=== PATIENT | male | born 1985 | race Caucasian/White ===

== ENCOUNTER 2017-11-17 21:32 | Inpatient (IN) | payer BC ==
[~2017-11-17] VITALS: Ht 175.3 cm; Wt 95.3 kg
[~2017-11-17 21:32] MED LIST: BUPROPION XL150 MG ORAL; QUETIAPINE FUM400 MG ORAL
[2017-11-17 21:35] VITALS: BP 96/45
[2017-11-17 21:48] VITALS: BP 96/39
--- NOTE | 2017-11-17 21:49 | Emergency Room Report ---
History of Present Illness General Chief Complaint: Altered Level of Consciousness Source: Family Member, Friend, EMS Present Illness HPI 32-year-old male brought in by EMS with suspected overdose EMS endorse GCS of 3 Per EMS, suspected serouqel overdose. Patient with a bunch of other bottles of medication, most of which were full. Response to Narcan 2 mg on scene. Patient had dilated pupils, tachycardia, and hypotension Looks like he had been vomiting Per family member, patient recently been drinking a lot of alcohol as well No known recent SI, or HI History of present illness otherwise limited, as patient minimally responsive Mother states last normal noon - 10 hours ago. She "thought" he had been drinking this morning and was "passed out during the day." Not sure if he "Fell and hit his head." Per roomate, recent admission at outside psych hospital to "get his head straight" but he is unsure on previous SI, psych history Allergies: Coded Allergies: UNABLE TO ASSESS (Unverified , 11/17/17) Patient History Past Medical History: unable to obtain Past Surgical History: unable to obtain Pertinent Family History: unable to obtain Social History: Reports: alcohol use Nursing Documentation-[facility] Past Medical History Deferred: Patient Unconscious Past Medical History: Deferred Review of Systems All Other Systems: limited - AMS Physical Exam Vital Signs Date Time Temp Pulse Resp B/P (MAP) Pulse Ox O2 Delivery O2 Flow Rate FiO2 11/17/17 21:22 96.3 141 7 86/39 96 Ambu-Bag Sp02 EP Interpretation: reviewed, normal General Appearance: other - GCS3, Stupor Head: normocephalic, atraumatic Eyes: bilateral eye PERRL, bilateral eye EOMI, bilateral eye other - Bilateral pupils dilated ENT: normal ENT inspection, no angioedema, uvula midline, other - Dried vomit in airway Neck: normal inspection, full range of motion, supple, thyroid normal Respiratory: lungs clear, normal breath sounds, no rhonchi, no wheezing Cardiovascular #1: no edema, no JVD, normal capillary refill, tachycardia Gastrointestinal: normal inspection, non tender, soft, no mass, non-distended, no hernia, no pulsatile mass Musculoskeletal: normal inspection, back normal, normal range of motion, no calf tenderness, pelvis stable, Jose's Sign negative Neurologic: other - minimally responsive Skin: no rash Lymphatic: normal inspection Procedures Critical Care Time Critical Care Time CC time 45 Critical care time endorsed for this patient for AMS, likely anticholingeric overdose Critical care time includes review of laboratory tests, imaging, review of EMR, review of paperwork from SNF (if available), discussion with patient and family (if available), review of code status/POLS (if available), discussion with poison control Critical care time also likely includes assessment of fluid status, stabilization of vital signs, selection and dosing of appropriate antibiotics, selection and dosing of Aspirin/Plavix/Heparin/Lovenox, discussion with PMD/ attending hospitalist/shearer helper. Critical care time does not include any procedures which are documented elsewhere in this EMR. Intubation Intubation : Consent: Emergent Intubation Method: orotracheal Tube Size (cm): 7.5 Medications: Etomidate, Rocuronium Breath Sounds after Intubation: equal Intubation Complications: no complications Post Intubation Xray: Yes Attempts: One Patient Tolerated: Well Complications: None Medical Decision Making Diagnostic Impression: Primary Impression: Altered level of consciousness Additional Impressions: Anticholinergic drug overdose Qualified Codes: T44.3X4A - Poisoning by other parasympatholytics [ anticholinergics and antimuscarinics] and spasmolytics, undetermined, initial encounter Rhabdomyolysis Qualified Codes: M62.82 - Rhabdomyolysis NOLVIA (acute kidney injury) Lactic acid acidosis ER Course altered mental status Combination of hypothermic (95F) tachycardia, hypotension, coma, dilated pupils consistent with anticholinergic possible Seroquel overdose Patient emergently intubated upon arrival Will monitor temperature and rewarm Will give bicarbonate as needed for QRS<100 IVF for hypotension labs consistent with rhabdomyolysis AND NOLVIA Elevated lactate of 10. 3L NS and LR given in ED Reflux lactate pending at time of endorsement CT head negative for ICH ICU admission Procedure Dr. Flor 1115pm EKG Diagnostic Results Rate: tachycardiac Rhythm: NSR ST Segments: no acute changes Rhythm Strip Diag. Results EP Interpretation: yes Rate: 128 Rhythm: NSR, no PVC's, no ectopy Chest X-Ray Diagnostic Results Chest X-Ray Diagnostic Results : Chest X-Ray Ordered: Yes # of Views/Limited/Complete: 1 View Indication: Other - AMS, tube placement EP Interpretation: Yes Interpretation: no consolidation, no effusion, no pneumothorax, no acute cardiopulmonary disease, other - ET in good position Impression: No acute disease Electronically Signed by: Dr Lex Tate MD Last Vital Signs Date Time Temp Pulse Resp B/P (MAP) Pulse Ox O2 Delivery O2 Flow Rate FiO2 11/17/17 21:22 96.3 141 7 86/39 96 Ambu-Bag Status: improved Disposition: ADMITTED INPATIENT Condition: Critical LEX TATE M.D. Nov 17, 2017 21:49
[2017-11-17 21:59] LABS: HEMATOCRIT 37.4 % (42.0-52.0); HEMOGLOBIN 12.6 G/DL (14.2-18.0); MEAN CORPUSCULAR VOLUME 100 FL (80-99); PLATELET COUNT 294 K/UL (150-450); RED BLOOD COUNT 3.74 M/UL (4.70-6.10); RED CELL DISTRIBUTION WIDTH 12.1 % (11.6-14.8); WHITE BLOOD COUNT 17.7 K/UL (4.8-10.8)
[2017-11-17 22:15] LABS: ANION GAP 21 mmol/L (5-15); BLOOD UREA NITROGEN 17 mg/dL (7-18); CALCIUM 7.9 MG/DL (8.5-10.1); CARBON DIOXIDE 19 MMOL/L (21-32); CHLORIDE 104 MMOL/L (98-107); CREATININE 1.8 MG/DL (0.55-1.30); POTASSIUM 4.1 MMOL/L (3.5-5.1); SODIUM 144 MMOL/L (136-145)
[2017-11-17] MEDS ORDERED: LR 1000ml 1,000 ML IV STA ×2 (22:25→22:40)
[2017-11-17 22:28] LABS: ALANINE AMINOTRANSFERASE 45 U/L (12-78); ALBUMIN 3.1 G/DL (3.4-5.0); ALKALINE PHOSPHATASE 46 U/L (46-116); ASPARTATE AMINO TRANSFERASE 95 U/L (15-37); BILIRUBIN,TOTAL 0.4 MG/DL (0.2-1.0); CKMB 47.3 NG/ML (0.0-3.6); CREATINE KINASE 3449 U/L (26-308)
[2017-11-17 23:06] VITALS: BP 109/54
[2017-11-17] MEDS ORDERED: LEXAPRO10 MG ORAL (23:32)
[2017-11-18] VITALS (24 sets, daily range): BP systolic 69–174; BP diastolic 27–94
[2017-11-18] MEDS: Sodium Chloride 500ML 500 ML IV SCH ×2 (01:30→05:36)
[2017-11-18] MEDS ORDERED: Phenytoin 1,000 MG in NS 275 ML IVPB ONE (01:45)
[2017-11-18] MEDS ORDERED: Sodium Bicarbonate 50ml Carp IV ONE (02:00)
[2017-11-18] MEDS ORDERED: LORazepam Inj 2mg/ml 1ml IV ONE ×3 (02:00→06:00)
[2017-11-18] MEDS ORDERED: Phenytoin 250mg/5ml vial ONE (02:17)
[2017-11-18] MEDS: Sodium Bicarbonate 100 ML in D5W 1000ml 1,000 ML IV SCH ×3 (02:47→13:00)
[2017-11-18 04:32] LABS: HEMATOCRIT 32.7 % (42.0-52.0); HEMOGLOBIN 11.1 G/DL (14.2-18.0); MEAN CORPUSCULAR VOLUME 100 FL (80-99); PLATELET COUNT 262 K/UL (150-450); RED BLOOD COUNT 3.28 M/UL (4.70-6.10); RED CELL DISTRIBUTION WIDTH 12.2 % (11.6-14.8); WHITE BLOOD COUNT 18.6 K/UL (4.8-10.8)
[2017-11-18 05:05] LABS: ALANINE AMINOTRANSFERASE 74 U/L (12-78); ALBUMIN 2.6 G/DL (3.4-5.0); ALKALINE PHOSPHATASE 35 U/L (46-116); ANION GAP 16 mmol/L (5-15); ASPARTATE AMINO TRANSFERASE 310 U/L (15-37); BILIRUBIN,TOTAL 0.4 MG/DL (0.2-1.0); BLOOD UREA NITROGEN 20 mg/dL (7-18); CALCIUM 7.4 MG/DL (8.5-10.1); CARBON DIOXIDE 24 MMOL/L (21-32); CHLORIDE 106 MMOL/L (98-107); CREATINE KINASE 13434 U/L (26-308); CREATININE 2.4 MG/DL (0.55-1.30); POTASSIUM 4.7 MMOL/L (3.5-5.1); SODIUM 146 MMOL/L (136-145)
[2017-11-18] MEDS ORDERED: levETIRAcetam 1,000mg/NS100ml 100 ML IVPB ONE (05:30)
[2017-11-18] MEDS: LORazepam Inj 2mg/ml 1ml IV PRN (05:34)
[2017-11-18] MEDS ORDERED: levETIRAcetam 500mg vial IV ONE ×2 (05:44)
[2017-11-18] MEDS: Pantoprazole Inj IVP SCH (08:59)
--- NOTE | 2017-11-18 10:01 | Diagnostic Imaging Report ---
Indication: Respiratory failure Technique: XRAY Chest 1v Comparison: None Findings: ET tube tip at the level of the clavicles, approximately 4 cm above the jordan. Cardiac pacer/defibrillator pads overlie the lower chest. Heart size within normal limits. There is mild pulmonary vascular congestion. No focal airspace consolidation, pleural effusion or pneumothorax. No acute osseous abnormality seen. Impression: Endotracheal tube tip at the level of the clavicles. 4 cm above the jordan. Slight advancement may provide more optimal tube positioning. This was discussed with the patient's treating ICU nurse via telephone conversation 9:50 AM 11/18/2017. Repeat chest radiograph for today pending. Mild pulmonary vascular congestion. No focal airspace consolidation.
--- NOTE | 2017-11-18 11:07 | Diagnostic Imaging Report ---
Indication: Altered mental status Technique: Continuous helical CT scanning of the head was performed without intravenous contrast material. Axial and coronal 5 mm sections were generated. Radiation dose was minimized using automated exposure control Dose: Total Dose Length Product - DLP 1404.[address] Dose Index - CTDIvol(s) 70.38 mGy. Comparison: None Findings: The ventricular system is normal in size and configuration. There is no shift of midline structures. No abnormal extra-axial fluid collections are noted. There is no evidence of intracerebral bleeding. No other abnormal high or low density areas are noted within the brain. There is no depressed skull fracture. No focal soft tissue swelling/scalp hematoma identified. There is mucosal thickening noted in some ethmoid air cells and within the nasal passages. Mastoid air cells are clear. Imaged portions of the orbits grossly unremarkable. Impression: No evidence of acute intracranial hemorrhage, mass effect or cortical edema. MRI may be obtained for more sensitive evaluation as clinically indicated. Mild paranasal sinus disease. This corresponds with the statrad preliminary report, with minimal discrepancy. The CT scanner at [facility] is accredited by the [employer] and the scans are performed using protocols designed to limit radiation exposure to as low as reasonably achievable to attain images of sufficient resolution adequate for diagnostic evaluation.
--- NOTE | 2017-11-18 11:27 | Neurology Progress Note ---
Objective Physical Exam Last Vital Signs Date Time Temp Pulse Resp B/P (MAP) Pulse Ox O2 Delivery O2 Flow Rate FiO2 11/18/17 11:01 112 24 80 11/18/17 11:00 97.9 134/82 98 Mechanical Ventilator Laboratory Tests Test 11/17/17 21:40 11/17/17 22:41 11/17/17 23:10 11/18/17 01:25 White Blood Count 17.7 K/UL (4.8-10.8) H Red Blood Count 3.74 M/UL (4.70-6.10) L Hemoglobin 12.6 G/DL (14.2-18.0) L Hematocrit 37.4 % (42.0-52.0) L Mean Corpuscular Volume 100 FL (80-99) H Mean Corpuscular Hemoglobin 33.7 PG (27.0-31.0) H Mean Corpuscular Hemoglobin Concent 33.7 G/DL (32.0-36.0) Red Cell Distribution Width 12.1 % (11.6-14.8) Platelet Count 294 K/UL (150-450) Mean Platelet Volume 5.4 FL (6.5-10.1) L Neutrophils (%) (Auto) % (45.0-75.0) Lymphocytes (%) (Auto) % (20.0-45.0) Monocytes (%) (Auto) % (1.0-10.0) Eosinophils (%) (Auto) % (0.0-3.0) Basophils (%) (Auto) % (0.0-2.0) Differential Total Cells Counted 100 Neutrophils % (Manual) 88 % (45-75) H Lymphocytes % (Manual) 3 % (20-45) L Monocytes % (Manual) 5 % (1-10) Eosinophils % (Manual) 0 % (0-3) Basophils % (Manual) 0 % (0-2) Band Neutrophils 4 % (0-8) Platelet Estimate Adequate Platelet Morphology Normal Red Blood Cell Morphology Normal Sodium Level 144 MMOL/L (136-145) Potassium Level 4.1 MMOL/L (3.5-5.1) Chloride Level 104 MMOL/L (98-107) Carbon Dioxide Level 19 MMOL/L (21-32) L Anion Gap 21 mmol/L (5-15) H Blood Urea Nitrogen 17 mg/dL (7-18) Creatinine 1.8 MG/DL (0.55-1.30) H Estimat Glomerular Filtration Rate 43.9 mL/min (>60) Glucose Level 130 MG/DL (74-106) H Lactic Acid Level 11.00 mmol/L (0.66-2.22) H 6.50 mmol/L (0.66-2.22) H Calcium Level 7.9 MG/DL (8.5-10.1) L Total Bilirubin 0.4 MG/DL (0.2-1.0) Aspartate Amino Transf (AST/SGOT) 95 U/L (15-37) H Alanine Aminotransferase (ALT/SGPT) 45 U/L (12-78) Alkaline Phosphatase 46 U/L (46-116) Total Creatine Kinase 3449 U/L (26-308) H Creatine Kinase MB 47.3 NG/ML (0.0-3.6) H Creatine Kinase MB Relative Index 1.3 Troponin I 0.008 ng/mL (0.000-0.056) Total Protein 6.1 G/DL (6.4-8.2) L Albumin 3.1 G/DL (3.4-5.0) L Globulin 3.0 g/dL Albumin/Globulin Ratio 1.0 (1.0-2.7) Urine Opiates Screen Negative (NEGATIVE) Urine Barbiturates Screen Negative (NEGATIVE) Phencyclidine (PCP) Screen Negative (NEGATIVE) Urine Amphetamines Screen Negative (NEGATIVE) Urine Benzodiazepines Screen Positive (NEGATIVE) H Urine Cocaine Screen Negative (NEGATIVE) Urine Marijuana (THC) Screen Negative (NEGATIVE) Arterial Blood pH 7.231 (7.350-7.450) 6.952 (7.350-7.450) Arterial Blood Partial Pressure CO2 53.4 mmHg (35.0-45.0) H 96.6 mmHg (35.0-45.0) *H Arterial Blood Partial Pressure O2 51.4 mmHg (75.0-100.0) L 428.7 mmHg (75.0-100.0) H Arterial Blood HCO3 21.9 mmol/L (22.0-26.0) L 20.9 mmol/L (22.0-26.0) L Arterial Blood Oxygen Saturation 80.1 % (92.0-98.0) L 99.3 % (92.0-98.0) H Arterial Blood Base Excess -6 -13.0 Duane Test Positive Positive Test 11/18/17 03:50 11/18/17 07:50 11/18/17 08:10 White Blood Count 18.6 K/UL (4.8-10.8) H Red Blood Count 3.28 M/UL (4.70-6.10) L Hemoglobin 11.1 G/DL (14.2-18.0) L Hematocrit 32.7 % (42.0-52.0) L Mean Corpuscular Volume 100 FL (80-99) H Mean Corpuscular Hemoglobin 33.8 PG (27.0-31.0) H Mean Corpuscular Hemoglobin Concent 33.9 G/DL (32.0-36.0) Red Cell Distribution Width 12.2 % (11.6-14.8) Platelet Count 262 K/UL (150-450) Mean Platelet Volume 6.0 FL (6.5-10.1) L Neutrophils (%) (Auto) % (45.0-75.0) Lymphocytes (%) (Auto) % (20.0-45.0) Monocytes (%) (Auto) % (1.0-10.0) Eosinophils (%) (Auto) % (0.0-3.0) Basophils (%) (Auto) % (0.0-2.0) Differential Total Cells Counted 100 Neutrophils % (Manual) 82 % (45-75) H Lymphocytes % (Manual) 5 % (20-45) L Monocytes % (Manual) 9 % (1-10) Eosinophils % (Manual) 0 % (0-3) Basophils % (Manual) 0 % (0-2) Band Neutrophils 4 % (0-8) Platelet Estimate Adequate Platelet Morphology Normal Anisocytosis Macrocytosis 1+ Sodium Level 146 MMOL/L (136-145) H Potassium Level 4.7 MMOL/L (3.5-5.1) Chloride Level 106 MMOL/L (98-107) Carbon Dioxide Level 24 MMOL/L (21-32) Anion Gap 16 mmol/L (5-15) H Blood Urea Nitrogen 20 mg/dL (7-18) H Creatinine 2.4 MG/DL (0.55-1.30) H Estimat Glomerular Filtration Rate 31.5 mL/min (>60) Glucose Level 191 MG/DL (74-106) H Lactic Acid Level 8.10 mmol/L (0.66-2.22) H 7.60 mmol/L (0.66-2.22) H Calcium Level 7.4 MG/DL (8.5-10.1) L Total Bilirubin 0.4 MG/DL (0.2-1.0) Aspartate Amino Transf (AST/SGOT) 310 U/L (15-37) H Alanine Aminotransferase (ALT/SGPT) 74 U/L (12-78) Alkaline Phosphatase 35 U/L (46-116) L Total Creatine Kinase 61579 U/L (26-308) H Total Protein 5.2 G/DL (6.4-8.2) L Albumin 2.6 G/DL (3.4-5.0) L Globulin 2.6 g/dL Albumin/Globulin Ratio 1.0 (1.0-2.7) Arterial Blood pH 7.402 (7.350-7.450) Arterial Blood Partial Pressure CO2 37.1 mmHg (35.0-45.0) Arterial Blood Partial Pressure O2 60.1 mmHg (75.0-100.0) L Arterial Blood HCO3 22.6 mmol/L (22.0-26.0) Arterial Blood Oxygen Saturation 88.2 % (92.0-98.0) L Arterial Blood Base Excess -1.8 Duane Test Positive Impression/Recommendations Problems: (1) Status epilepticus (2) coma (3) NOLVIA (acute kidney injury) (4) Lactic acid acidosis (5) Rhabdomyolysis Status: unchanged, deteriorating Recommendations #[id number] XAVI SANEZ Nov 18, 2017 11:27
--- NOTE | 2017-11-18 12:11 | Diagnostic Imaging Report ---
Indication: Respiratory failure, ET tube placement Technique: XRAY Chest 1v Comparison: 11/17/2017, 29:43 Findings: ET tube, tip now below the level of the clavicles, approximately 5.6 cm above the jordan. Heart size and mediastinal contours are stable. There is increased slight interstitial opacification/fluid overload. No pleural effusion or pneumothorax. No acute osseous abnormality. Impression: ET tube tip below the level of the clavicles, approximately 5.6 cm below the jordan. Slight interval increased haziness of the pulmonary vascularity possibly reflective of development of mild interstitial edema/fluid overload. Follow-up exam recommended.
[2017-11-18 12:26] LABS: AMMONIA 24 umol/L (11-32)
[2017-11-18] MEDS ORDERED: Thiamine HCl 100 MG, Folic Acid 1 MG, Magnesium Sulfate 2,000 MG, Multivitamin - 12 Inj... IV SCH ×5 (13:00)
[2017-11-18] MEDS: Thiamine 100mg in D5W 55ml IVPB SCH (13:59)
[2017-11-18] MEDS: Folic Acid 1 MG, Magnesium Sulfate 2,000 MG, Multivitamin - 12 Injection 10 ML in NS w/... IV SCH (13:59)
[2017-11-18] MEDS: levETIRAcetam 1,000mg/NS100ml 100 ML IVPB SCH ×2 (14:36→22:01)
[2017-11-18] MEDS: D5 1/2NS 1,000 ML IV SCH ×2 (16:50→21:04)
[2017-11-18] MEDS ORDERED: Etomidate 40mg/20ml Inj IV ONE (17:01)
[2017-11-18] MEDS ORDERED: Zemuron 50mg/5ml Inj IV ONE (17:01)
--- NOTE | 2017-11-18 21:32 | Consultation ---
DATE OF CONSULTATION: 11/18/2017 NEUROLOGICAL CONSULTATION REFERRING PHYSICIAN: Leonardo Flor M.D. HISTORY OF PRESENT ILLNESS: This is a 32-year-old man brought to this hospital with an episode of unresponsiveness followed by recurrent seizures. According to paramedics, he was found to be in apartment of a bedroom supine on the ground, unresponsive. Apparently, he was found previously by his mother also unresponsive with her last call to him about 10 hours prior. There were two empty bottles of Seroquel next to the patient. There were numerous other medications in the bedroom, but they were not empty. Gustine coma scale initially with dilated pupils not responsive to pain, slow respiration, hypotensive and tachycardic. IV fluids were established. Rescue breathing was applied. The patient was placed in a shock position and normal saline challenge was given, 2 mg of Narcan, also given with no change. There was no outside trauma, mother also suggested he might have had overdose with alcohol as well. With this, he was brought to the emergency room with dilated pupils, tachycardia, hypotension and vomiting at times. Family added that he has been abusing alcohol lately. He had a recent hospitalization to the psychiatric unit. His admission blood pressure was 86/29, heart rate of 141, respirations 7, on Ambu bag pulse oximetry was 96%. The patient was intubated. Initial studies included a chest x-ray, mild pulmonary vascular congestion noted, but also ET tube and cardiac pacer defibrillator pads described. CAT scan of the brain reported as negative. His EKG normal sinus rhythm, sinus tachycardia at 128. His laboratory studies included CBC with WBCs of 17.7, hemoglobin 12.6, hematocrit 37.4 elevated MCV and MCH. Chemistry panel, anion gap of 21, creatinine 1.8 and glucose 130 and CPK 3449, CK-MB 47.3 and 1.3. Albumin 3.1. Lactic acid elevation at 11.0. Anion gap elevated to 16. BUN of 20 and creatinine 2.4. Following admission, the patient was transported to ICU for closer observation. He developed a generalized clonic-tonic seizure, which were recurrent for the following 4-5 hours. During this, the patient was given at least 1.5 mg of Ativan IV, loaded with 1 g of Dilantin with no improvement, then loaded with Keppra 1 g IV, no further seizures noted. Stat Neurology consult requested. PAST MEDICAL HISTORY: Unavailable except the presence of antidepressants, alcohol abuse and recent psychiatric hospitalization. MEDICATIONS: Treatment prior to admission, quetiapine 400 mg daily, Lexapro 10 mg daily and bupropion XL 300 mg daily. ALLERGIES: Sulfa drugs, sulfonamide antibiotics. SOCIAL HISTORY: Lives in an apartment with a roommate. Obviously, reportedly has a history of alcohol abuse. Acute toxicology admission positive only for benzodiazepine. REVIEW OF SYMPTOMS: Not obtained, the patient is comatose. PHYSICAL EXAMINATION: GENERAL: A well-developed and well-nourished man, now intubated, he is not triggering respirator at t0he rate of 24. His blood pressure is 109/51, heart rate of 109, temperature 102.2, and pulse oximetry 98% on mechanical ventilator MUSCULOSKELETAL: Unremarkable. No deformities. No rash noted. Peripheral pulses 1+ symmetric. MENTAL STATUS: No response to verbal stimulation or painful stimulation. Glabella/palmomental reflexes. CRANIAL NERVE II: Pupils are 4 millimeters, very sluggishly responding to the light. Fundi poorly visualized. CRANIAL NERVE V: Slightly positive corneal responses. No blinking. Extraocular movement none on doll maneuver. CRANIAL NERVE VII: No facial asymmetry and no facial movement. CRANIAL NERVE VIII: Not tested. CRANIAL NERVE IX THROUGH XII: Absent gag response. MOTOR EXAMINATION: Flaccid upper and lower extremities. No evidence of involuntary movement noted. No muscle wasting. Deep tendon reflexes absent biceps, triceps, brachioradialis, knee and ankle jerks. Plantar responses mute. IMPRESSION: 1. Severe encephalopathy, multifactorial, Seroquel toxicity, benzodiazepine sedation, postictal state, rule out post anoxic brain. 2. Status epilepticus, now controlled. 3. History of chronic psychiatric disorder. 4. History of alcohol abuse. DISCUSSION: The patient who reportedly had took a bottle of Seroquel for overdose and had previous alcohol abuse, was found to be unresponsive over the last communication 10 hours prior. There was sense of vomiting, respiratory failure, and hypotension. Subsequently, developed what seems status epilepticus, several seizures, which were not controlled with Ativan and Dilantin, but stopped after Keppra IV given. Currently significant metabolic derangement with acute renal failure and rhabdomyolysis. At this time, we will obtain additional toxicology screen for presence of alcohol. We will check liver function. Repeat CBC and CMP. Start on banana bag (thiamine, magnesium oxide, folic acid supplements). Get a stat EEG to rule out ongoing seizure activity. Continue with IV Keppra 3000 mg, total for today. For recurrent seizures, may need for sedation with propofol. Unfortunately, no EEG video monitoring available, but may repeat EEG as needed. Discussed the patient's with medical staff. I will follow with you. Thank you for allowing me to see this interesting patient in neurological consultation. Vance Lan M.D. DR: DAISY JOB#: [id number] CC:
[2017-11-19] VITALS (23 sets, daily range): BP systolic 124–176; BP diastolic 78–92
[2017-11-19] MEDS: D5 1/2NS 1,000 ML IV SCH ×3 (01:02→09:01)
[2017-11-19] MEDS ORDERED: cefTRIAXone 1 GM in D5W 55 ML IVPB SCH (04:00)
[2017-11-19 04:24] LABS: HEMATOCRIT 34.3 % (42.0-52.0); HEMOGLOBIN 12.1 G/DL (14.2-18.0); MEAN CORPUSCULAR VOLUME 96 FL (80-99); PLATELET COUNT 186 K/UL (150-450); RED BLOOD COUNT 3.58 M/UL (4.70-6.10); WHITE BLOOD COUNT 19.8 K/UL (4.8-10.8)
[2017-11-19 04:51] LABS: ALANINE AMINOTRANSFERASE 144 U/L (12-78); ALBUMIN 2.3 G/DL (3.4-5.0); ALBUMIN/GLOBULIN RATIO 0.8 (1.0-2.7); ALKALINE PHOSPHATASE 50 U/L (46-116); ANION GAP 9 mmol/L (5-15); ASPARTATE AMINO TRANSFERASE 653 U/L (15-37); BILIRUBIN,TOTAL 0.7 MG/DL (0.2-1.0); BLOOD UREA NITROGEN 30 mg/dL (7-18); CALCIUM 6.8 MG/DL (8.5-10.1); CARBON DIOXIDE 29 MMOL/L (21-32); CHLORIDE 103 MMOL/L (98-107); CREATINE KINASE 20937 U/L (26-308); POTASSIUM 3.6 MMOL/L (3.5-5.1); SODIUM 141 MMOL/L (136-145)
[2017-11-19] MEDS: levETIRAcetam 1,000mg/NS100ml 100 ML IVPB SCH ×3 (06:04→22:03)
[2017-11-19] MEDS: Pantoprazole Inj IVP SCH (09:01)
[2017-11-19] MEDS ORDERED: D5 1/2NS 1,000 ML IV SCH (11:30)
--- NOTE | 2017-11-19 11:39 | Diagnostic Imaging Report ---
Indication: Dyspnea Technique: One view of the chest Comparison: 11/18/2017 Findings: Interstitial prominence and perihilar disease on the left persists, unchanged. Suspect increasing consolidation at the left lung base. New infiltrates are seen at the right lung base. Stable satisfactory position of endotracheal tube Impression: Increasing bilateral infiltrates versus edema, over one day, as described
--- NOTE | 2017-11-19 12:15 | History and Physical Report ---
DATE OF ADMISSION: 11/17/2017 REASON FOR ADMISSION: Overdose and respiratory failure. HISTORY OF PRESENT ILLNESS: This is a 32-year-old male with history of bipolar disorder, who was recently hospitalized in a psychiatric facility because of suicidal ideation, was found down by his mother and roommate. He apparently was found with two empty bottles of Seroquel next to him. Initially, the patient was unresponsive with dilated pupils, slow respirations and hypotension with tachycardia. IV fluids were given and he was transferred to the emergency room. The patient was intubated and placed on mechanical ventilation. PAST MEDICAL HISTORY: Otherwise unremarkable. MEDICATIONS: Medications prior to admission are not known, but do include Lexapro, bupropion and Seroquel. ALLERGIES: Sulfa. SOCIAL HISTORY: Notable for alcohol abuse. FAMILY HISTORY: Noncontributory. REVIEW OF SYSTEMS: According to his mother, the patient visited her at their home in [place] approximately three months ago. At that time, there was a family dispute and the patient was disowned by his father because of persistent alcohol abuse and financial instability. The patient returned to his home in [place] and apparently has been continuing to drink heavily. He has been increasingly depressed. He was recently hospitalized for suicidal ideation. The patient's mother came to [facility] about 10 days ago to help him. She notes that she has not been very successful. PHYSICAL EXAMINATION: GENERAL: Orally intubated. Mechanically ventilated. Unresponsive at this time. VITAL SIGNS: Blood pressure is 109/54, pulse rate 130, respiratory rate 13, and temperature 95.6 degrees. HEENT: Pupils are sluggish and dilated. Orally intubated. NECK: Supple. LUNGS: Clear. CARDIAC: Regular rhythm and rate. Normal S1 and S2. ABDOMEN: Soft. EXTREMITIES: No edema. NEUROLOGICAL: The patient withdraws to pain. LABORATORY DATA: White count is 17.7 and hemoglobin 12.6. Sodium is 144, potassium 4.1, bicarbonate 19, BUN 17, and creatinine 1.8. Lactic acid is 11. 3449. Albumin is 3.1. Troponin is 0.008. Tox screen is notable for benzodiazepine. IMPRESSION: 1. Drug overdose. 2. Probable suicide attempt. 3. Respiratory failure. 4. Coma. 5. Lactic acidosis. 6. Alcoholism. 7. Acute renal failure. 8. Rhabdomyolysis. 9. Mild protein-calorie malnutrition. 10. Leukocytosis. PLAN: 1. Ventilator support. 2. Hydration with IV bicarb. 3. Withdrawal precautions. 4. DVT prophylaxis. Leonardo Flor M.D. DR: Dyllan JOB#: [id number] CC:
[2017-11-19] MEDS: Piperacillin/Tazobactam 3.375 GM in NS 110 ML IVPB SCH (14:23)
[2017-11-19] MEDS: Thiamine 100mg in D5W 55ml IVPB SCH (14:23)
[2017-11-19] MEDS: Folic Acid 1 MG, Magnesium Sulfate 2,000 MG, Multivitamin - 12 Injection 10 ML in NS w/... IV SCH (14:23)
--- NOTE | 2017-11-19 15:26 | Neurology Progress Note ---
Interim History Interim History ROS Limited/Unobtainable: Yes Complaints: coma Events: coma no parox events Objective Physical Exam Last Vital Signs Date Time Temp Pulse Resp B/P (MAP) Pulse Ox O2 Delivery O2 Flow Rate FiO2 11/19/17 15:00 121 22 130/88 94 Mechanical Ventilator 60 11/19/17 12:00 98.8 Laboratory Tests Test 11/18/17 15:51 11/18/17 16:24 11/18/17 20:16 11/18/17 21:00 Arterial Blood pH 7.570 (7.350-7.450) 7.458 (7.350-7.450) Arterial Blood Partial Pressure CO2 26.0 mmHg (35.0-45.0) L 37.5 mmHg (35.0-45.0) Arterial Blood Partial Pressure O2 328.4 mmHg (75.0-100.0) H 92.5 mmHg (75.0-100.0) Arterial Blood HCO3 23.3 mmol/L (22.0-26.0) 26.0 mmol/L (22.0-26.0) Arterial Blood Oxygen Saturation 99.1 % (92.0-98.0) H 95.2 % (92.0-98.0) Arterial Blood Base Excess 2.4 2.2 [place]ane Test Positive Positive Lactic Acid Level 3.60 mmol/L (0.66-2.22) H 2.70 mmol/L (0.66-2.22) H Test 11/19/17 03:55 11/19/17 13:00 White Blood Count 19.8 K/UL (4.8-10.8) H Red Blood Count 3.58 M/UL (4.70-6.10) L Hemoglobin 12.1 G/DL (14.2-18.0) L Hematocrit 34.3 % (42.0-52.0) L Mean Corpuscular Volume 96 FL (80-99) Mean Corpuscular Hemoglobin 33.7 PG (27.0-31.0) H Mean Corpuscular Hemoglobin Concent 35.2 G/DL (32.0-36.0) Red Cell Distribution Width 12.0 % (11.6-14.8) Platelet Count 186 K/UL (150-450) Mean Platelet Volume 5.9 FL (6.5-10.1) L Neutrophils (%) (Auto) % (45.0-75.0) Lymphocytes (%) (Auto) % (20.0-45.0) Monocytes (%) (Auto) % (1.0-10.0) Eosinophils (%) (Auto) % (0.0-3.0) Basophils (%) (Auto) % (0.0-2.0) Differential Total Cells Counted 100 Neutrophils % (Manual) 84 % (45-75) H Lymphocytes % (Manual) 2 % (20-45) L Monocytes % (Manual) 3 % (1-10) Eosinophils % (Manual) 0 % (0-3) Basophils % (Manual) 0 % (0-2) Myelocytes % 1 % (0-0) H Band Neutrophils 10 % (0-8) H Platelet Estimate Adequate Platelet Morphology Normal Red Blood Cell Morphology Normal Sodium Level 141 MMOL/L (136-145) Potassium Level 3.6 MMOL/L (3.5-5.1) Chloride Level 103 MMOL/L (98-107) Carbon Dioxide Level 29 MMOL/L (21-32) Anion Gap 9 mmol/L (5-15) Blood Urea Nitrogen 30 mg/dL (7-18) H Creatinine 3.0 MG/DL (0.55-1.30) H Estimat Glomerular Filtration Rate 24.4 mL/min (>60) Glucose Level 176 MG/DL (74-106) H Lactic Acid Level 2.20 mmol/L (0.66-2.22) 1.90 mmol/L (0.66-2.22) Calcium Level 6.8 MG/DL (8.5-10.1) L Total Bilirubin 0.7 MG/DL (0.2-1.0) Aspartate Amino Transf (AST/SGOT) 653 U/L (15-37) H Alanine Aminotransferase (ALT/SGPT) 144 U/L (12-78) H Alkaline Phosphatase 50 U/L (46-116) Total Creatine Kinase 81347 U/L (26-308) H Total Protein 5.3 G/DL (6.4-8.2) L Albumin 2.3 G/DL (3.4-5.0) L Globulin 3.0 g/dL Albumin/Globulin Ratio 0.8 (1.0-2.7) L Vitamin B12 Level 707 PG/ML (193-986) Folate 18.9 NG/ML (8.6-58.9) Thyroid Stimulating Hormone (TSH) 5.178 uiU/mL (0.358-3.740) General: well developed, no acute distress, other - intubated ,Swelling L head/ arm Head: normocophalic, other - severe swelling L side Neck: no rigidity Neurologic Exam Mental Status: other - no responce to voice , decerebrate on pain stimuly Speech: other Language: other Cranial Nerve II: other Cranial Nerves III, IV, : other - p 2mm fixed ok horisontal movement Cranial Nerve V: other - no corneal Cranial Nerve VII: other Cranial Nerve VIII: other Cranial Nerve IX: other - no gag Cranial Nerve XI: other Cranial Nerve XII: other Motor System: other - flaccid Sensory: other Coordination: other Deep Tendon Reflexes: 0 bicep (L), 0 bicep (R), 0 tricep (L), 0 tricep (R), 0 brachioradialis (L), 0 brachioradialis (R), 0 knee (L), 0 knee (R), 0 ankle (L) , 0 ankle (R) Reflexes: extensor plantar (L), extensor plantar (R) Impression/Recommendations Problems: (1) Status epilepticus (2) coma (3) NOLVIA (acute kidney injury) (4) Lactic acid acidosis (5) Rhabdomyolysis Status: unchanged, deteriorating Recommendations #[id number] d/w family d/w staff CT brain EEG cont support care prognosis poor XAVI SAENZ Nov 19, 2017 15:26
[2017-11-19] MEDS: Sodium Bicarbonate 100 ML in D5W 1000ml 1,000 ML IV SCH ×2 (16:13→20:27)
--- NOTE | 2017-11-19 17:00 | Progress Note ---
DATE: 11/18/2017 INTERNAL MEDICINE CRITICAL CARE NOTE CRITICAL CARE TIME: Two hours. SUBJECTIVE: The patient was admitted to the intensive care unit, orally intubated and mechanically ventilated following a drug overdose. The patient developed seizures early this morning, refractory to multiple interventions. The patient was given IV lorazepam times several doses. In addition, he was loaded with 1 g of Dilantin intravenously. The patient continued to have status epilepticus. He was subsequently given intravenous Keppra. Seizure control was achieved at that time. The patient continues to have elevated lactate levels. His IV fluids were adjusted accordingly. The patient remained on ventilator support. He was severely acidotic with pH down to 6.9 at one point. Adjustments in the ventilator settings as well as IV fluids resulted in stabilization of his metabolic parameters. The patient's mother was at bedside. She was counseled extensively regarding the patient's critical condition and guarded prognosis. His mortality was put at 50%. Additional historical data was obtained from her. The patient's vitals were reviewed. His case was discussed with the nursing staff. Examination revealed him to be orally intubated, mechanically ventilated. Bilateral breath sounds. Regular rhythm. Rapid rate. Normal S1 and S2. Abdomen soft. No edema. Perfusion adequate. He is unresponsive and comatose. Pupils are sluggish and dilated. Neurologic evaluation was obtained and the case discussed with Dr. Lan. The patient was started on thiamine replacement and subsequently because of continued elevation in his white blood count and probable aspiration, empiric IV antibiotics were initiated as well. IMPRESSION: 1. Remains critical and guarded. 2. Status epilepticus. 3. Lactic acidosis. 4. Seroquel overdose. 5. Benzodiazepine overdoses. 6. Alcoholism. 7. Aspiration with possible pneumonia. 8. Respiratory failure. 9. Severe metabolic acidosis. Leonardo Flor M.D. DR: Dyllan JOB#: [id number] CC:
[2017-11-19] MEDS ORDERED: Potassium Chloride 40 MEQ in Sodium Chloride 500ML 550 ML IVPB ONE (19:45)
[2017-11-19 21:09] LABS: ANION GAP 12 mmol/L (5-15); BLOOD UREA NITROGEN 29 mg/dL (7-18); CALCIUM 6.6 MG/DL (8.5-10.1); CARBON DIOXIDE 26 MMOL/L (21-32); CHLORIDE 103 MMOL/L (98-107); CREATININE 2.7 MG/DL (0.55-1.30); POTASSIUM 4.2 MMOL/L (3.5-5.1); SODIUM 141 MMOL/L (136-145)
[2017-11-20] VITALS (24 sets, daily range): BP systolic 136–157; BP diastolic 85–100
[2017-11-20] MEDS: Sodium Bicarbonate 100 ML in D5W 1000ml 1,000 ML IV SCH ×3 (00:58→09:00)
--- NOTE | 2017-11-20 01:00 | Consultation ---
DATE OF CONSULTATION: 11/19/2017 NEPHROLOGY CONSULTATION CONSULTING PHYSICIAN: Arthur Cross M.D. REFERRING PHYSICIAN: Leonardo Flor M.D. and Milan Rivera M.D. CHIEF COMPLAINT AND REASON FOR CONSULTATION: Elevated BUN and creatinine. HISTORY OF PRESENT ILLNESS: The patient is a 32-year-old man with a history of psychiatric hospitalization and recent psychiatric hospitalization. He presented with unresponsiveness and apparently had two empty bottles of Seroquel near him. He has severe rhabdomyolysis and elevated BUN and creatinine. ALLERGIES: Sulfa. HABITS: He is a heavy alcohol user. REVIEW OF SYSTEMS: The patient is unable. PHYSICAL EXAMINATION: GENERAL: The patient is seen in the ICU. He is intubated. VITAL SIGNS: The pulse 123, respirations 22, blood pressure 131/86, and pulse oximetry 94%. HEAD, EYES, EARS, NOSE, AND THROAT: He is orally intubated. There is moderate to severe periorbital edema. NECK: No adenopathy. LUNGS: Clear. HEART: Regular rhythm and tachycardic. ABDOMEN: Soft without organomegaly. EXTREMITIES: No edema. LABORATORY AND DIAGNOSTIC DATA: Pertinent labs today, white count 19.8 and hemoglobin is 12.1. Sodium 141, potassium 3.6, chloride 103, CO2 29, BUN 30 and creatinine 3. CK 20,937. Albumin is 2.3. Drug screen is positive for benzodiazepines. IMPRESSION: 1. Acute kidney injury, likely due to rhabdomyolysis. 2. Respiratory failure. 3. Drug overdose. 4. History of bipolar, possible suicide attempt. 5. Bilateral infiltrates on chest x-ray. PLAN: The patient should be given large volumes of IV fluid containing bicarbonate to mitigate the toxicity and rhabdomyolysis. We will monitor closely. His condition is critical and guarded. So far, he is nonoliguric. Arthur Cross M.D. DR: SULEMAN JOB#: [id number] CC:
[2017-11-20] MEDS ORDERED: Potassium Chloride 40 MEQ in Sodium Chloride 500ML 550 ML IVPB ONE (02:00)
[2017-11-20] MEDS: Piperacillin/Tazobactam 3.375 GM in NS 110 ML IVPB SCH ×2 (03:27→15:50)
[2017-11-20 04:49] LABS: HEMATOCRIT 34.5 % (42.0-52.0); HEMOGLOBIN 12.2 G/DL (14.2-18.0); MEAN CORPUSCULAR VOLUME 97 FL (80-99); PLATELET COUNT 146 K/UL (150-450); RED BLOOD COUNT 3.57 M/UL (4.70-6.10); RED CELL DISTRIBUTION WIDTH 12.1 % (11.6-14.8); WHITE BLOOD COUNT 16.1 K/UL (4.8-10.8)
[2017-11-20] MEDS: levETIRAcetam 1,000mg/NS100ml 100 ML IVPB SCH ×3 (05:02→22:03)
[2017-11-20 05:32] LABS: ALANINE AMINOTRANSFERASE 139 U/L (12-78); ALBUMIN 1.8 G/DL (3.4-5.0); ALBUMIN/GLOBULIN RATIO 0.5 (1.0-2.7); ALKALINE PHOSPHATASE 75 U/L (46-116); ANION GAP 9 mmol/L (5-15); ASPARTATE AMINO TRANSFERASE 378 U/L (15-37); BILIRUBIN,TOTAL 0.4 MG/DL (0.2-1.0); BLOOD UREA NITROGEN 28 mg/dL (7-18); CALCIUM 6.9 MG/DL (8.5-10.1); CARBON DIOXIDE 25 MMOL/L (21-32); CHLORIDE 105 MMOL/L (98-107); CREATINE KINASE 12973 U/L (26-308); CREATININE 2.5 MG/DL (0.55-1.30); POTASSIUM 4.5 MMOL/L (3.5-5.1); SODIUM 139 MMOL/L (136-145)
--- NOTE | 2017-11-20 07:15 | Progress Note ---
DATE: 11/19/2017 INTERNAL MEDICINE PROGRESS NOTE SUBJECTIVE: The patient was assessed, evaluated. The case was discussed with Dr. Lan. A 45-minute meeting was undertaken with the patient's family members including his roommate, his mother, his father, and his brother. They were made aware of current status and ongoing workup as well as critical condition and guarded prognosis especially from a neurologic standpoint. The patient remains seizure-free and EEG is pending for today. The patient is on ventilator support. He is not communicative and is not arousable. OBJECTIVE: HEENT: Pupils are dilated. NECK: Supple. LUNGS: Clear. CARDIAC: Regular, normal S1, S2. ABDOMEN: Soft. EXTREMITIES: Edema is noted on the right upper extremity and facial region. on pain stimulation. LABORATORY DATA: Labs reviewed. IMPRESSION: 1. Status epilepticus. 2. Coma. 3. Rhabdomyolysis. 4. Acute renal failure. 5. Lactic acidosis. 6. Respiratory failure. 7. Possible noncardiogenic pulmonary edema. 8. Aspiration pneumonia. 9. Presumed overdose with Seroquel. 10. Alcoholism. PLAN: 1. Await EEG. 2. Antimicrobials broadened. 3. Ventilator support. 4. Continue hydration. 5. IV fluids adjusted. 6. DVT and stress ulcer prophylaxes. 7. CT of the brain when able to transport. 8. Nutrition by feeding tube. Leonardo Flor M.D. DR: JEFF JOB#: [id number] CC:
[2017-11-20] MEDS: Pantoprazole Inj IVP SCH (09:00)
--- NOTE | 2017-11-20 12:10 | Diagnostic Imaging Report ---
Indications: Altered mental status Technique: Spiral acquisitions obtained through the brain. Angled axial and coronal 5 x 5 mm slices were reconstructed. Total dose length product 1439.06 mGycm. CTDI vol(s) 70.38 mGy. Dose reduction achieved using automated exposure control Comparison: 11/17/2017 Findings: There is some image degradation due to motion artifact No acute intracranial hemorrhage or edema. No mass effect or midline shift. Normal rodriguez-white differentiation. Bilateral lacunar infarcts imaging views of the internal capsules are now visible, not evident previously. There is a lacunar infarct in the posterior aspect of the right lentiform nucleus which is not evident previously. Normal-sized ventricles and extra axial CSF spaces. Intact calvarium. Visualized orbits are unremarkable. There is interim development of considerable sinus disease. There is some mastoid disease which was not evident previously as well on the right Impression: Bilateral internal capsule and right lentiform nucleus lacunar infarcts, presumed subacute as not evident on previous study of 11/17/2017 Negative for acute intracranial bleed or mass effect Sinus disease, largely new since the previous exam Somewhat limited exam due to motion artifact The CT scanner at [facility] is accredited by the [employer] and the scans are performed using protocols designed to limit radiation exposure to as low as reasonably achievable to attain images of sufficient resolution adequate for diagnostic evaluation.
--- NOTE | 2017-11-20 12:53 | Nephrology Progress Note ---
Assessment/Plan Problem List: (1) CVA (cerebral vascular accident) (2) Rhabdomyolysis (3) Lactic acid acidosis (4) NOLVIA (acute kidney injury) (5) Altered level of consciousness Plan continue iv with bicarb for mitigate rhabdo toxicity Subjective ROS Limited/Unobtainable: Yes Objective Objective Last 24 Hour Vital Signs Date Time Temp Pulse Resp B/P (MAP) Pulse Ox O2 Delivery O2 Flow Rate FiO2 11/20/17 12:00 60 11/20/17 11:10 105 24 60 11/20/17 11:00 110 21 157/99 98 Mechanical Ventilator 60 11/20/17 10:00 115 25 156/100 98 Mechanical Ventilator 60 11/20/17 09:26 128 31 60 11/20/17 09:00 119 26 144/91 97 Mechanical Ventilator 60 11/20/17 08:00 60 11/20/17 08:00 99.9 120 26 145/94 97 Mechanical Ventilator 60 11/20/17 07:45 117 11/20/17 07:21 115 23 60 11/20/17 07:00 113 20 149/96 96 Mechanical Ventilator 60 11/20/17 06:00 118 11/20/17 06:00 98.0 111 25 149/99 96 Mechanical Ventilator 60 11/20/17 05:02 114 25 60 11/20/17 05:00 98.1 120 25 149/99 96 Mechanical Ventilator 60 11/20/17 04:00 98.6 118 21 138/87 96 Mechanical Ventilator 60 11/20/17 04:00 60 11/20/17 03:14 126 23 60 11/20/17 03:00 99.0 120 31 136/92 94 Mechanical Ventilator 60 11/20/17 02:00 98.6 117 24 137/93 94 Mechanical Ventilator 60 11/20/17 01:09 118 24 60 11/20/17 01:00 120 24 142/92 94 Mechanical Ventilator 60 11/20/17 00:00 122 11/20/17 00:00 60 11/20/17 00:00 98.6 117 24 145/90 93 Mechanical Ventilator 60 11/19/17 23:09 122 24 60 11/19/17 23:00 120 24 139/83 95 Mechanical Ventilator 60 11/19/17 22:00 123 24 130/78 97 Mechanical Ventilator 60 11/19/17 21:08 120 23 60 11/19/17 21:00 99.7 123 24 133/87 95 Mechanical Ventilator 60 11/19/17 20:00 121 11/19/17 20:00 60 11/19/17 19:57 98.1 120 24 135/87 96 Mechanical Ventilator 60 11/19/17 19:22 122 24 60 11/19/17 18:00 125 20 139/87 95 Mechanical Ventilator 60 11/19/17 17:08 123 22 60 11/19/17 17:00 123 22 131/86 94 Mechanical Ventilator 60 11/19/17 16:00 98.2 121 22 132/89 94 Mechanical Ventilator 60 11/19/17 16:00 60 11/19/17 16:00 120 11/19/17 15:11 121 22 60 11/19/17 15:00 121 22 130/88 94 Mechanical Ventilator 60 11/19/17 14:00 121 22 127/86 94 Mechanical Ventilator 60 11/19/17 13:23 123 22 60 11/19/17 13:00 124 22 124/86 93 Mechanical Ventilator 50 Intake and Output 11/19/17 11/20/17 19:00 07:00 Intake Total 1988.5 ml 3922.6 ml Output Total 1855 ml 2945 ml Balance 133.5 ml 977.6 ml IV Total 1988.5 ml 3922.6 ml Output Urine Total 1855 ml 2945 ml Laboratory Tests 11/19/17 13:00: Lactic Acid Level 1.90 11/19/17 20:40: Sodium Level 141, Potassium Level 4.2, Chloride Level 103, Carbon Dioxide Level 26, Anion Gap 12, Blood Urea Nitrogen 29H, Creatinine 2.7H, Estimat Glomerular Filtration Rate 27.5, Glucose Level 160H, Calcium Level 6.6L 11/20/17 03:00: Lactic Acid Level 1.20, Sodium Level 139, Potassium Level 4.5, Chloride Level 105, Carbon Dioxide Level 25, Anion Gap 9, Blood Urea Nitrogen 28H, Creatinine 2.5H, Estimat Glomerular Filtration Rate 30.1, Glucose Level 142H, Calcium Level 6.9L, White Blood Count 16.1H, Red Blood Count 3.57L, Hemoglobin 12.2L, Hematocrit 34.5L, Mean Corpuscular Volume 97, Mean Corpuscular Hemoglobin 34.1H , Mean Corpuscular Hemoglobin Concent 35.3, Red Cell Distribution Width 12.1, Platelet Count 146L, Mean Platelet Volume 7.0, Neutrophils (%) (Auto) , Lymphocytes (%) (Auto) , Monocytes (%) (Auto) , Eosinophils (%) (Auto) , Basophils (%) (Auto) , Differential Total Cells Counted 100, Neutrophils % ( Manual) 78H, Lymphocytes % (Manual) 3L, Monocytes % (Manual) 1, Eosinophils % ( Manual) 0, Basophils % (Manual) 0, Metamyelocytes % 2H, Band Neutrophils 16H, Platelet Estimate DecreasedL, Platelet Morphology Normal, Red Blood Cell Morphology Normal, Magnesium Level 2.6H, Total Bilirubin 0.4, Aspartate Amino Transf (AST/SGOT) 378H, Alanine Aminotransferase (ALT/SGPT) 139H, Alkaline Phosphatase 75, Total Creatine Kinase 39143O, Total Protein 5.2L, Albumin 1.8L, Globulin 3.4, Albumin/Globulin Ratio 0.5L Height (Feet): 5 Height (Inches): 9.00 Weight (Pounds): 182 General Appearance: other - intubated moves to irritative stimuli EENT: other - periorbital edema Neck: normal alignment Cardiovascular: regular rhythm, tachycardia Respiratory/Chest: lungs clear Abdomen: non tender, soft Extremities: moderate edema Neurologic: unresponsive VLADIMIR KEYS Nov 20, 2017 12:53
[2017-11-20] MEDS: D5W IV SCH ×3 (13:30→22:03)
[2017-11-20] MEDS: SODIUM BICARBONATE IV SCH ×3 (13:30→22:03)
[2017-11-20] MEDS: Thiamine 100mg in D5W 55ml IVPB SCH (13:45)
--- NOTE | 2017-11-20 14:09 | Neurology Progress Note ---
Interim History Interim History ROS Limited/Unobtainable: Yes Complaints: coma Events: coma no parox events, more responsive to pain Objective Physical Exam Last Vital Signs Date Time Temp Pulse Resp B/P (MAP) Pulse Ox O2 Delivery O2 Flow Rate FiO2 11/20/17 13:15 106 22 60 11/20/17 11:00 157/99 98 Mechanical Ventilator 11/20/17 08:00 99.9 Laboratory Tests Test 11/19/17 20:40 11/20/17 03:00 Sodium Level 141 MMOL/L (136-145) 139 MMOL/L (136-145) Potassium Level 4.2 MMOL/L (3.5-5.1) 4.5 MMOL/L (3.5-5.1) Chloride Level 103 MMOL/L (98-107) 105 MMOL/L (98-107) Carbon Dioxide Level 26 MMOL/L (21-32) 25 MMOL/L (21-32) Anion Gap 12 mmol/L (5-15) 9 mmol/L (5-15) Blood Urea Nitrogen 29 mg/dL (7-18) H 28 mg/dL (7-18) H Creatinine 2.7 MG/DL (0.55-1.30) H 2.5 MG/DL (0.55-1.30) H Estimat Glomerular Filtration Rate 27.5 mL/min (>60) 30.1 mL/min (>60) Glucose Level 160 MG/DL (74-106) H 142 MG/DL (74-106) H Calcium Level 6.6 MG/DL (8.5-10.1) L 6.9 MG/DL (8.5-10.1) L White Blood Count 16.1 K/UL (4.8-10.8) H Red Blood Count 3.57 M/UL (4.70-6.10) L Hemoglobin 12.2 G/DL (14.2-18.0) L Hematocrit 34.5 % (42.0-52.0) L Mean Corpuscular Volume 97 FL (80-99) Mean Corpuscular Hemoglobin 34.1 PG (27.0-31.0) H Mean Corpuscular Hemoglobin Concent 35.3 G/DL (32.0-36.0) Red Cell Distribution Width 12.1 % (11.6-14.8) Platelet Count 146 K/UL (150-450) L Mean Platelet Volume 7.0 FL (6.5-10.1) Neutrophils (%) (Auto) % (45.0-75.0) Lymphocytes (%) (Auto) % (20.0-45.0) Monocytes (%) (Auto) % (1.0-10.0) Eosinophils (%) (Auto) % (0.0-3.0) Basophils (%) (Auto) % (0.0-2.0) Differential Total Cells Counted 100 Neutrophils % (Manual) 78 % (45-75) H Lymphocytes % (Manual) 3 % (20-45) L Monocytes % (Manual) 1 % (1-10) Eosinophils % (Manual) 0 % (0-3) Basophils % (Manual) 0 % (0-2) Metamyelocytes % 2 % (0-0) H Band Neutrophils 16 % (0-8) H Platelet Estimate Decreased L Platelet Morphology Normal Red Blood Cell Morphology Normal Lactic Acid Level 1.20 mmol/L (0.66-2.22) Magnesium Level 2.6 MG/DL (1.8-2.4) H Total Bilirubin 0.4 MG/DL (0.2-1.0) Aspartate Amino Transf (AST/SGOT) 378 U/L (15-37) H Alanine Aminotransferase (ALT/SGPT) 139 U/L (12-78) H Alkaline Phosphatase 75 U/L (46-116) Total Creatine Kinase 03485 U/L (26-308) H Total Protein 5.2 G/DL (6.4-8.2) L Albumin 1.8 G/DL (3.4-5.0) L Globulin 3.4 g/dL Albumin/Globulin Ratio 0.5 (1.0-2.7) L General: well developed, no acute distress, other - intubated , Head: normocophalic, other Neck: no rigidity Neurologic Exam Mental Status: other - no responce to voice , decerebrate on pain stimuly, open eyes Speech: other Language: other Cranial Nerve II: other Cranial Nerves III, IV, : other - p 2mm fixed ok horisontal movement Cranial Nerve V: other - no corneal Cranial Nerve VII: other Cranial Nerve VIII: other Cranial Nerve IX: other - no gag Cranial Nerve XI: other Cranial Nerve XII: other Motor System: other - flaccid. on pain decerebrates BUE Sensory: other Coordination: other Deep Tendon Reflexes: 0 bicep (L), 0 bicep (R), 0 tricep (L), 0 tricep (R), 0 brachioradialis (L), 0 brachioradialis (R), 0 knee (L), 0 knee (R), 0 ankle (L) , 0 ankle (R) Reflexes: extensor plantar (L), extensor plantar (R) Impression/Recommendations Problems: (1) Status epilepticus (2) coma (3) NOLVIA (acute kidney injury) (4) Lactic acid acidosis (5) Rhabdomyolysis Status: unchanged, deteriorating Recommendations #[id number] d/w family contemplating d/c life support per pt wish d/w staff CT brain noted EEGnoted cont support care prognosis poor XAVI SAENZ Nov 20, 2017 14:08
[2017-11-20] MEDS: Folic Acid 1 MG, Magnesium Sulfate 2,000 MG, Multivitamin - 12 Injection 10 ML in NS w/... IV SCH (14:24)
[2017-11-20] MEDS ORDERED: D5 1/2NS 1000ml IV ONE (14:37)
[2017-11-20] MEDS ORDERED: Tubing IV Secondary IV ONE (14:37)
[2017-11-20] MEDS ORDERED: Sterile Water Irrig 1000ml IRRIG ONE (14:37)
[2017-11-21] VITALS (24 sets, daily range): BP systolic 135–159; BP diastolic 84–106
[2017-11-21] MEDS: D5W IV SCH ×6 (01:52→21:48)
[2017-11-21] MEDS: SODIUM BICARBONATE IV SCH ×6 (01:52→21:48)
[2017-11-21] MEDS: Piperacillin/Tazobactam 3.375 GM in NS 110 ML IVPB SCH ×3 (04:23→21:48)
[2017-11-21] MEDS: levETIRAcetam 1,000mg/NS100ml 100 ML IVPB SCH ×3 (05:47→21:47)
[2017-11-21] MEDS: Pantoprazole Inj IVP SCH (09:03)
[2017-11-21 09:33] LABS: ANION GAP 7 mmol/L (5-15); BLOOD UREA NITROGEN 23 mg/dL (7-18); CALCIUM 7.3 MG/DL (8.5-10.1); CARBON DIOXIDE 30 MMOL/L (21-32); CHLORIDE 101 MMOL/L (98-107); CREATINE KINASE 4393 U/L (26-308); CREATININE 1.9 MG/DL (0.55-1.30); SODIUM 138 MMOL/L (136-145)
--- NOTE | 2017-11-21 10:59 | Diagnostic Imaging Report ---
Indication: Status post nasogastric tube placement Technique: Supine view of the upper abdomen Comparison: none Findings: There is a nasogastric tube in place, tip projected at the level gastric body, proximal port beyond the gastroesophageal junction. Incidentally noted are bilateral basilar pulmonary parenchymal infiltrates and possible left-sided pleural effusion, appearing possibly increased from chest radiograph of 2 days earlier Impression: Satisfactory nasogastric intubation Possibly increasing pulmonary parenchymal disease and left pleural fluid, over 2 days
--- NOTE | 2017-11-21 12:07 | Neurology Progress Note ---
Interim History Interim History ROS Limited/Unobtainable: Yes Complaints: coma Events: coma no parox events, more responsive to pain Objective Physical Exam Last Vital Signs Date Time Temp Pulse Resp B/P (MAP) Pulse Ox O2 Delivery O2 Flow Rate FiO2 11/21/17 11:30 40 11/21/17 11:28 113 23 11/21/17 11:00 156/93 96 Mechanical Ventilator 11/21/17 08:00 99.3 Laboratory Tests Test 11/21/17 08:30 Sodium Level 138 MMOL/L (136-145) Potassium Level 3.0 MMOL/L (3.5-5.1) L Chloride Level 101 MMOL/L (98-107) Carbon Dioxide Level 30 MMOL/L (21-32) Anion Gap 7 mmol/L (5-15) Blood Urea Nitrogen 23 mg/dL (7-18) H Creatinine 1.9 MG/DL (0.55-1.30) H Estimat Glomerular Filtration Rate 41.3 mL/min (>60) Glucose Level 134 MG/DL (74-106) H Uric Acid 2.6 MG/DL (2.6-7.2) Calcium Level 7.3 MG/DL (8.5-10.1) L Phosphorus Level 4.0 MG/DL (2.5-4.9) Total Creatine Kinase 4393 U/L (26-308) H General: well developed, no acute distress, other - intubated , now overbreathing Head: normocophalic, other Neck: no rigidity Neurologic Exam Mental Status: other - no responce to voice , decerebrate on pain stimuly, open eyes Speech: other Language: other Cranial Nerve II: other Cranial Nerves III, IV, : other - p 2mm fixed ok horisontal movement Cranial Nerve V: other - no corneal Cranial Nerve VII: other Cranial Nerve VIII: other Cranial Nerve IX: other - no gag Cranial Nerve XI: other Cranial Nerve XII: other Motor System: other - flaccid. on pain decerebrates BUE Sensory: other Coordination: other Deep Tendon Reflexes: 0 bicep (L), 0 bicep (R), 0 tricep (L), 0 tricep (R), 0 brachioradialis (L), 0 brachioradialis (R), 0 knee (L), 0 knee (R), 0 ankle (L) , 0 ankle (R) Reflexes: extensor plantar (L), extensor plantar (R) Impression/Recommendations Problems: (1) coma (2) Status epilepticus (3) NOLVIA (acute kidney injury) (4) Lactic acid acidosis (5) Rhabdomyolysis Status: unchanged, deteriorating Recommendations #[id number] d/w family contemplating d/c life support per pt wish d/w staff CT brain noted EEGnoted cont support care prognosis poor XAVI SAENZ Nov 21, 2017 12:07
[2017-11-21] MEDS: LORazepam Inj 2mg/ml 1ml IV PRN ×2 (12:31→23:30)
--- NOTE | 2017-11-21 12:57 | Infectious Diseases Prog Note ---
Assessment/Plan Assessment/Plan antibiotics : zosyn, flagyl A 1. pneumonia with staph aureus 2. leucocytosis improving 3. renal failure improving 4. respiratory failure 5. suicidal attempt 6. bipolar disorder P 1. continue zosyn 2. d/c flagyl 3. start linezolid 4. will follow up cultures Subjective ROS Limited/Unobtainable: Yes Allergies: Coded Allergies: SULFA (SULFONAMIDE ANTIBIOTICS) (Verified Allergy, Unknown, 11/18/17) per family Objective Vital Signs Last 24 Hour Vital Signs Date Time Temp Pulse Resp B/P (MAP) Pulse Ox O2 Delivery O2 Flow Rate FiO2 11/21/17 11:30 40 11/21/17 11:28 113 23 50 11/21/17 11:03 40 11/21/17 11:00 120 23 156/93 96 Mechanical Ventilator 50 11/21/17 10:00 111 20 138/87 98 Mechanical Ventilator 50 111 11/21/17 09:10 107 20 50 11/21/17 09:10 98 11/21/17 09:00 109 20 147/92 98 Mechanical Ventilator 50 109 11/21/17 08:00 50 11/21/17 08:00 97 11/21/17 08:00 99.3 105 20 141/93 98 Mechanical Ventilator 50 104 11/21/17 07:00 102 23 149/96 98 Mechanical Ventilator 50 109 11/21/17 06:54 107 22 50 11/21/17 06:00 102 23 150/97 98 Mechanical Ventilator 50 109 11/21/17 05:27 111 25 50 11/21/17 05:00 109 23 153/101 98 Mechanical Ventilator 50 109 11/21/17 04:00 50 11/21/17 04:00 117 11/21/17 04:00 99.2 117 24 158/94 98 Mechanical Ventilator 60 109 11/21/17 03:30 114 23 50 11/21/17 03:00 116 23 137/84 97 Mechanical Ventilator 60 109 11/21/17 02:00 116 23 137/84 97 Mechanical Ventilator 60 109 11/21/17 01:30 117 25 50 11/21/17 01:00 106 21 149/95 98 Mechanical Ventilator 60 109 11/21/17 00:00 112 11/21/17 00:00 99.0 106 21 139/85 98 Mechanical Ventilator 60 104 11/21/17 00:00 60 11/20/17 23:00 107 21 140/87 98 Mechanical Ventilator 60 103 11/20/17 22:58 103 20 60 11/20/17 22:00 104 20 150/85 97 Mechanical Ventilator 60 100 11/20/17 21:00 100 21 148/95 95 Mechanical Ventilator 60 100 11/20/17 20:30 96 20 60 11/20/17 20:00 100 11/20/17 20:00 60 11/20/17 20:00 98.0 100 20 145/92 95 Mechanical Ventilator 60 11/20/17 19:30 97 20 60 11/20/17 19:00 114 29 147/92 92 Mechanical Ventilator 60 11/20/17 18:00 116 28 147/94 97 Mechanical Ventilator 60 11/20/17 17:19 122 28 60 11/20/17 17:00 121 24 144/90 97 Mechanical Ventilator 60 11/20/17 16:42 120 11/20/17 16:00 101.0 119 23 152/90 98 Mechanical Ventilator 60 11/20/17 16:00 60 11/20/17 15:05 117 23 60 11/20/17 15:00 115 23 152/92 98 Mechanical Ventilator 60 11/20/17 14:00 112 22 156/95 98 Mechanical Ventilator 60 11/20/17 13:15 106 22 60 11/20/17 13:00 107 22 157/99 98 Mechanical Ventilator 60 Height (Feet): 5 Height (Inches): 9.00 Weight (Pounds): 179 HEENT: other - intubated Respiratory/Chest: lungs clear Cardiovascular: normal rate, regular rhythm, no gallop/murmur Abdomen: soft, non tender Extremities: no edema Microbiology Date/Time Source Procedure Growth Status 11/19/17 11:57 Sputum Gram Stain - Final Resulted 11/19/17 11:57 Sputum Culture - Preliminary Staphylococcus Aureus Resulted Laboratory Tests Test 11/21/17 08:30 Sodium Level 138 MMOL/L (136-145) Potassium Level 3.0 MMOL/L (3.5-5.1) L Chloride Level 101 MMOL/L (98-107) Carbon Dioxide Level 30 MMOL/L (21-32) Anion Gap 7 mmol/L (5-15) Blood Urea Nitrogen 23 mg/dL (7-18) H Creatinine 1.9 MG/DL (0.55-1.30) H Estimat Glomerular Filtration Rate 41.3 mL/min (>60) Glucose Level 134 MG/DL (74-106) H Uric Acid 2.6 MG/DL (2.6-7.2) Calcium Level 7.3 MG/DL (8.5-10.1) L Phosphorus Level 4.0 MG/DL (2.5-4.9) Total Creatine Kinase 4393 U/L (26-308) H ALEXIA PEREZ Nov 21, 2017 12:57
[2017-11-21] MEDS: Thiamine 100mg in D5W 55ml IVPB SCH (14:01)
[2017-11-21] MEDS: Folic Acid 1 MG, Magnesium Sulfate 2,000 MG, Multivitamin - 12 Injection 10 ML in NS w/... IV SCH (14:36)
--- NOTE | 2017-11-21 15:37 | Diagnostic Imaging Report ---
Indication: Shortness of breath Technique: One view of the chest Comparison: 11/19/2017 Findings: Interim marked worsening of bilateral lower lung and left perihilar infiltrates. Stable satisfactory position of endotracheal tube. Interim placement of a nasogastric tube, tip projected at the level gastric fundus body junction, proximal port just beyond the gastroesophageal junction Impression: Interim marked worsening of bilateral infiltrates, over 2 days Satisfactory nasogastric intubation, also reported on earlier abdominal radiograph
[2017-11-21] MEDS ORDERED: POTASSIUM CHLORIDE IV SCH (16:00)
[2017-11-21] MEDS ORDERED: SODIUM BICARBONATE IV SCH (16:00)
[2017-11-21] MEDS ORDERED: D5W IV SCH (16:00)
--- NOTE | 2017-11-21 16:43 | Nephrology Progress Note ---
Assessment/Plan Problem List: (1) CVA (cerebral vascular accident) (2) Rhabdomyolysis (3) Lactic acid acidosis (4) NOLVIA (acute kidney injury) (5) Altered level of consciousness Plan continue iv with bicarb for mitigate rhabdo toxicity, reduce rate, kcl Subjective ROS Limited/Unobtainable: Yes Objective Objective Last 24 Hour Vital Signs Date Time Temp Pulse Resp B/P (MAP) Pulse Ox O2 Delivery O2 Flow Rate FiO2 11/21/17 16:30 80 11/21/17 15:00 109 21 142/86 99 Mechanical Ventilator 100 11/21/17 15:00 113 25 50 11/21/17 14:00 99.3 114 29 148/98 98 Mechanical Ventilator 100 11/21/17 14:00 100 11/21/17 13:30 60 11/21/17 13:00 139 11/21/17 13:00 127 27 154/85 96 Mechanical Ventilator 50 11/21/17 13:00 119 32 50 11/21/17 12:00 99.9 119 23 151/95 96 Mechanical Ventilator 50 11/21/17 11:30 40 11/21/17 11:28 113 23 50 11/21/17 11:03 40 11/21/17 11:00 120 23 156/93 96 Mechanical Ventilator 50 11/21/17 10:00 111 20 138/87 98 Mechanical Ventilator 50 111 11/21/17 09:10 107 20 50 11/21/17 09:10 98 11/21/17 09:00 109 20 147/92 98 Mechanical Ventilator 50 109 11/21/17 08:00 50 11/21/17 08:00 97 11/21/17 08:00 99.3 105 20 141/93 98 Mechanical Ventilator 50 104 11/21/17 07:00 102 23 149/96 98 Mechanical Ventilator 50 109 11/21/17 06:54 107 22 50 11/21/17 06:00 102 23 150/97 98 Mechanical Ventilator 50 109 11/21/17 05:27 111 25 50 11/21/17 05:00 109 23 153/101 98 Mechanical Ventilator 50 109 11/21/17 04:00 50 11/21/17 04:00 117 11/21/17 04:00 99.2 117 24 158/94 98 Mechanical Ventilator 60 109 11/21/17 03:30 114 23 50 11/21/17 03:00 116 23 137/84 97 Mechanical Ventilator 60 109 11/21/17 02:00 116 23 137/84 97 Mechanical Ventilator 60 109 11/21/17 01:30 117 25 50 11/21/17 01:00 106 21 149/95 98 Mechanical Ventilator 60 109 11/21/17 00:00 112 11/21/17 00:00 99.0 106 21 139/85 98 Mechanical Ventilator 60 104 11/21/17 00:00 60 11/20/17 23:00 107 21 140/87 98 Mechanical Ventilator 60 103 11/20/17 22:58 103 20 60 11/20/17 22:00 104 20 150/85 97 Mechanical Ventilator 60 100 11/20/17 21:00 100 21 148/95 95 Mechanical Ventilator 60 100 11/20/17 20:30 96 20 60 11/20/17 20:00 100 11/20/17 20:00 60 11/20/17 20:00 98.0 100 20 145/92 95 Mechanical Ventilator 60 11/20/17 19:30 97 20 60 11/20/17 19:00 114 29 147/92 92 Mechanical Ventilator 60 11/20/17 18:00 116 28 147/94 97 Mechanical Ventilator 60 11/20/17 17:19 122 28 60 11/20/17 17:00 121 24 144/90 97 Mechanical Ventilator 60 Intake and Output 11/20/17 11/21/17 19:00 07:00 Intake Total 3241.5 ml 3532.5 ml Output Total 1730 ml 1640 ml Balance 1511.5 ml 1892.5 ml IV Total 3241.5 ml 3532.5 ml Output Urine Total 1730 ml 1640 ml Laboratory Tests 11/21/17 08:30: Sodium Level 138, Potassium Level 3.0L, Chloride Level 101, Carbon Dioxide Level 30, Anion Gap 7, Blood Urea Nitrogen 23H, Creatinine 1.9H, Estimat Glomerular Filtration Rate 41.3, Glucose Level 134H, Uric Acid 2.6, Calcium Level 7.3L, Phosphorus Level 4.0, Total Creatine Kinase 4393H 11/21/17 13:56: Arterial Blood pH 7.432, Arterial Blood Partial Pressure CO2 49.4H, Arterial Blood Partial Pressure O2 72.4L, Arterial Blood HCO3 32.2H, Arterial Blood Oxygen Saturation 92.7, Arterial Blood Base Excess 6.8, Duane Test Positive Height (Feet): 5 Height (Inches): 9.00 Weight (Pounds): 179 General Appearance: other - intubated EENT: other - periorbital edema Cardiovascular: regular rhythm Respiratory/Chest: lungs clear, normal breath sounds Abdomen: non tender Extremities: moderate edema Neurologic: unresponsive VLADIMIR KEYS Nov 21, 2017 16:43
[2017-11-21] MEDS ORDERED: Tubing IV Secondary IV ONE (17:33)
[2017-11-21] MEDS: POTASSIUM CHLORIDE IV SCH ×2 (18:03→21:48)
--- NOTE | 2017-11-21 20:03 | Consultation ---
Consult Note Consult Note NEUROLOGY CONSULTATION (Second Opinion): Full note dictated #[id number] 32 y/o, CM with PH of depression, alcoholism, who on 11/17/17 was found unresponsive with bottles of empty Seroquel by him by the paramedics. When the paramedics first evaluated him he was with dilated pupils, not responsive to pain, with slow respiration, hypotensive and tachycardic. IV fluids were started and he was bagged. Narcan was given but no change was noted. On admission his blood pressure was 86/29, heart rate of 141, respirations 7, on Ambu bag pulse oximetry was 96%. He was intubated and artificially ventilated. Following that he was noted to have what was described as being generalized tonic clonic seizures which were treated with Ativan, Dilantin and Keppra. He has been comatose since then. ON EXAM: Spontaneous myoclonus. Only responds to deep pain with withdrawal in both lower extremities but not upper extremities. No blink to threat. Pupils 5 mm and reactive sluggishly to light. EOM present on OCM Corneals + and equal Gag -ve. DTRs diminished 1+ Plantars extensor. CT of brain 11/17/[address] of brain 11/20/17 with bilateral internal capsule and right lentiform nucleus lucencies. EEG done on 11/19/17 revealed a severe encephalopathy. IMPRESSION: Severe anoxic/ischemic cerebral injury due to drug OD. Poor prognosis for recovery of full neurologic function. REC: Continue management as per Marcela Lan and Chacho. Seferino Reardon M.D., M.S.P.H. SEFERINO REARDON Nov 21, 2017 20:03
--- NOTE | 2017-11-21 22:00 | Consultation ---
DATE OF CONSULTATION: 11/20/2017 INFECTIOUS DISEASE CONSULTATION REFERRING PHYSICIAN: Leonardo Flor M.D. REASON FOR CONSULTATION: Leukocytosis. HISTORY OF PRESENTING ILLNESS: This is a 32-year-old gentleman with history of bipolar disorder who was recently hospitalized at a psychiatry facility because of suicidal ideation, who was found down by his mother and roommate. He apparently was found with two empty bottles of Seroquel next to him. He was for the unresponsive with dilated pupils, lower respiration and hypotension. IV fluids were given and he was transferred to [place] emergency room. He has been intubated, admitted to the ICU and an Infectious Diseases consultation has been obtained for leukocytosis. PAST MEDICAL HISTORY: 1. History of bipolar disorder. 2. Acute suicidal ideation. MEDICATIONS: As an inpatient, the patient is on sodium bicarbonate, Zosyn, Flagyl, levetiracetam, folic acid, multivitamin, thiamine, Protonix and Ativan. ALLERGIES: The patient is allergic to sulfa. SOCIAL HISTORY: Positive history of alcohol use. FAMILY HISTORY: Unknown. REVIEW OF SYSTEMS: Unable to obtain currently. PHYSICAL EXAMINATION: VITAL SIGNS: Temperature of 99.9 degrees, T-max of 99.9 degrees, pulse of 105, respiratory 24, blood pressure of 157/99 and O2 saturation of 98%. HEENT: Pupils equally reactive to light and accommodation. Mouth appears clean without thrush. NECK: Supple. No adenopathy. No JVD. CARDIOVASCULAR: Regular rate and rhythm. No murmurs. LUNGS: Clear to auscultation bilaterally. No crackles. No wheezes. ABDOMEN: Soft and nontender. No organomegaly. EXTREMITIES: No cyanosis, no clubbing, and no edema. LABORATORY AND DIAGNOSTIC DATA: White count 16.1, hemoglobin 12.2, hematocrit 34.5, MCV 97 and platelet count of 146, neutrophils of 78%. Sodium 139, potassium 4.5, chloride 105, bicarbonate 25, BUN 28, creatinine 2.5 and glucose 142. Calcium 6.9. Total bilirubin 0.4. AST 378, ALT 139, and alkaline phosphatase 75. CK of 12,973. Troponin of 0.008. Total protein 5.2. Albumin 1.8. Sputum cultures are pending. Rectal swab was negative for VRE. Nasal swab was negative for MRSA. Chest x-ray showing increasing bilateral infiltrates versus edema. CT head showing no evidence of intracranial hemorrhage, mass effect, or edema. Mild paranasal sinus disease noted. ASSESSMENT: This is a 32-year-old gentleman with history of bipolar disorder who comes in with possible suicidal ideation and is found to have leukocytosis with the concern 1. Regarding aspiration pneumonia. 2. Leukocytosis is improving. 3. Renal failure. 4. Rhabdomyolysis. PLAN: 1. Continue Zosyn and Flagyl. 2. We will follow up cultures and adjust antibiotics accordingly. I would like to thank, Dr. Flor, for this consultation. Ina Dorsey M.D. DR: HARIKA JOB#: [id number] CC: Leonardo Flor M.D.
--- NOTE | 2017-11-21 23:15 | Electroencephalogram ---
DATE OF PROCEDURE: 11/20/2017 ELECTROENCEPHALOGRAPHY REPORT REFERRING PHYSICIAN: Leonardo Flor M.D. READING PHYSICIAN: Vance Lan M.D. PROCEDURE PERFORMED: Electroencephalography. HISTORY: This is a 32-year-old man status post status epilepticus and drug overdose, presenting with comatose state. The patient placed on Keppra for seizure prevention. TECHNIQUE: EEG was done using 18 electrodes placed in scalp to scalp, scalp to ear montages according to 10/20 International System. Throughout the recording, the patient remained comatose, unresponsive to painful stimulation. No paroxysmal clinical events noted. Throughout the recording, background consists of very low voltage 5-10 millivolts, slow wave activities ranging 4-5 cycles per second bilaterally. Occasional runs of generalized 2-3 per second delta activity noted. With physical stimulation (pinching toes and rubbing chest), there was minimal reactivity noted. There was no asymmetry from side to side. There was no spike or wave activities. IMPRESSION: Markedly abnormal electroencephalogram in presence of severe low voltage slowing with poor reactivity. COMMENT: The above abnormality indicates a severe global cerebral dysfunction. Low reactivity carries poor prognosis. Absence of paroxysmal event on a single recording does not rule out seizure disorder. Vance Lan M.D. DR: DAISY JOB#: [id number] CC:
[2017-11-22] VITALS (24 sets, daily range): BP systolic 106–177; BP diastolic 5–113
[2017-11-22] MEDS: LORazepam Inj 2mg/ml 1ml IV PRN ×7 (01:43→20:04)
[2017-11-22 05:07] LABS: ALANINE AMINOTRANSFERASE 96 U/L (12-78); ALBUMIN 1.5 G/DL (3.4-5.0); ALBUMIN/GLOBULIN RATIO 0.4 (1.0-2.7); ALKALINE PHOSPHATASE 83 U/L (46-116); ANION GAP 6 mmol/L (5-15); ASPARTATE AMINO TRANSFERASE 118 U/L (15-37); BILIRUBIN,TOTAL 0.5 MG/DL (0.2-1.0); BLOOD UREA NITROGEN 20 mg/dL (7-18); CALCIUM 7.7 MG/DL (8.5-10.1); CARBON DIOXIDE 31 MMOL/L (21-32); CHLORIDE 103 MMOL/L (98-107); CREATINE KINASE 3239 U/L (26-308); CREATININE 1.8 MG/DL (0.55-1.30); POTASSIUM 3.3 MMOL/L (3.5-5.1); SODIUM 139 MMOL/L (136-145)
[2017-11-22 05:18] LABS: HEMATOCRIT 30.1 % (42.0-52.0); HEMOGLOBIN 10.5 G/DL (14.2-18.0); MEAN CORPUSCULAR VOLUME 96 FL (80-99); PLATELET COUNT 113 K/UL (150-450); RED BLOOD COUNT 3.13 M/UL (4.70-6.10); WHITE BLOOD COUNT 12.1 K/UL (4.8-10.8)
[2017-11-22] MEDS: levETIRAcetam 1,000mg/NS100ml 100 ML IVPB SCH ×2 (05:38→14:30)
[2017-11-22] MEDS: Piperacillin/Tazobactam 3.375 GM in NS 110 ML IVPB SCH (05:39)
[2017-11-22] MEDS: SODIUM BICARBONATE IV SCH ×2 (05:50→17:32)
[2017-11-22] MEDS: POTASSIUM CHLORIDE IV SCH ×2 (05:50→17:32)
[2017-11-22] MEDS: D5W IV SCH ×2 (05:50→17:32)
[2017-11-22] MEDS: Pantoprazole Inj IVP SCH (08:21)
--- NOTE | 2017-11-22 09:00 | Infectious Diseases Prog Note ---
Assessment/Plan Assessment/Plan A; Aspiration Pneumonia, MSSA in sputum Acute renal failure Hypercapnic respiratory failure Anoxic encephalopathy Drug overdose Rhabdomyolysis P; Change Zosyn & Zyvox to Cefepime Subjective ROS Limited/Unobtainable: Yes Constitutional: Reports: fever, other - Fhnf=288.3 Allergies: Coded Allergies: SULFA (SULFONAMIDE ANTIBIOTICS) (Verified Allergy, Unknown, 11/18/17) per family Objective Vital Signs Last 24 Hour Vital Signs Date Time Temp Pulse Resp B/P (MAP) Pulse Ox O2 Delivery O2 Flow Rate FiO2 11/22/17 08:30 135 33 100 11/22/17 07:15 127 38 100 11/22/17 07:00 99.4 114 17 121/101 85 Mechanical Ventilator 100 11/22/17 06:00 98.7 116 15 146/110 84 Mechanical Ventilator 100 11/22/17 05:11 123 29 100 11/22/17 05:00 101.2 122 15 148/93 95 Mechanical Ventilator 100 11/22/17 04:00 101.3 132 16 133/90 94 Mechanical Ventilator 100 11/22/17 04:00 100 11/22/17 04:00 132 11/22/17 03:25 123 26 100 11/22/17 03:00 121 19 140/80 98 Mechanical Ventilator 100 11/22/17 02:00 125 20 143/86 95 Mechanical Ventilator 100 11/22/17 01:11 112 26 100 11/22/17 01:00 98.4 103 14 149/100 95 Mechanical Ventilator 100 11/22/17 00:00 100 11/22/17 00:00 103 11/22/17 00:00 98.4 103 14 149/100 95 Mechanical Ventilator 100 11/21/17 23:13 106 32 100 11/21/17 23:00 100 26 151/106 95 Mechanical Ventilator 100 11/21/17 22:00 96 23 146/96 98 Mechanical Ventilator 100 11/21/17 21:21 101 25 100 11/21/17 21:00 96 27 145/90 95 Mechanical Ventilator 100 11/21/17 20:00 103 11/21/17 20:00 98.9 103 21 142/94 98 Mechanical Ventilator 100 11/21/17 19:00 112 16 137/88 98 Mechanical Ventilator 100 11/21/17 18:31 142 35 100 11/21/17 18:00 99.9 129 25 159/97 95 Mechanical Ventilator 80 11/21/17 17:00 104 20 135/91 99 Mechanical Ventilator 100 11/21/17 16:55 101 20 50 11/21/17 16:30 80 11/21/17 16:00 103 11/21/17 16:00 106 21 141/85 99 Mechanical Ventilator 100 11/21/17 15:00 109 21 142/86 99 Mechanical Ventilator 100 11/21/17 15:00 113 25 50 11/21/17 14:00 99.3 114 29 148/98 98 Mechanical Ventilator 100 11/21/17 14:00 100 11/21/17 13:30 60 11/21/17 13:00 139 11/21/17 13:00 127 27 154/85 96 Mechanical Ventilator 50 11/21/17 13:00 119 32 50 11/21/17 12:00 99.9 119 23 151/95 96 Mechanical Ventilator 50 11/21/17 11:30 40 11/21/17 11:28 113 23 50 11/21/17 11:03 40 11/21/17 11:00 120 23 156/93 96 Mechanical Ventilator 50 11/21/17 10:00 111 20 138/87 98 Mechanical Ventilator 50 111 11/21/17 09:10 107 20 50 11/21/17 09:10 98 11/21/17 09:00 109 20 147/92 98 Mechanical Ventilator 50 109 Height (Feet): 5 Height (Inches): 9.00 Weight (Pounds): 204 HEENT: other - orally intubated Respiratory/Chest: lungs clear, other - on ventilator Cardiovascular: tachycardia Abdomen: soft, non tender, other - NG tube Extremities: no edema Neurologic/Psychiatric: unresponsiveness, other - chorea Microbiology Date/Time Source Procedure Growth Status 11/19/17 11:57 Sputum Gram Stain - Final Complete 11/19/17 11:57 Sputum Culture - Final Staphylococcus Aureus Complete Laboratory Tests Test 11/21/17 13:56 11/22/17 03:35 Arterial Blood pH 7.432 (7.350-7.450) Arterial Blood Partial Pressure CO2 49.4 mmHg (35.0-45.0) H Arterial Blood Partial Pressure O2 72.4 mmHg (75.0-100.0) L Arterial Blood HCO3 32.2 mmol/L (22.0-26.0) H Arterial Blood Oxygen Saturation 92.7 % (92.0-98.0) Arterial Blood Base Excess 6.8 Duane Test Positive White Blood Count 12.1 K/UL (4.8-10.8) H Red Blood Count 3.13 M/UL (4.70-6.10) L Hemoglobin 10.5 G/DL (14.2-18.0) L Hematocrit 30.1 % (42.0-52.0) L Mean Corpuscular Volume 96 FL (80-99) Mean Corpuscular Hemoglobin 33.6 PG (27.0-31.0) H Mean Corpuscular Hemoglobin Concent 35.0 G/DL (32.0-36.0) Red Cell Distribution Width 12.0 % (11.6-14.8) Platelet Count 113 K/UL (150-450) L Mean Platelet Volume 8.2 FL (6.5-10.1) Neutrophils (%) (Auto) % (45.0-75.0) Lymphocytes (%) (Auto) % (20.0-45.0) Monocytes (%) (Auto) % (1.0-10.0) Eosinophils (%) (Auto) % (0.0-3.0) Basophils (%) (Auto) % (0.0-2.0) Neutrophils % (Manual) Pending Lymphocytes % (Manual) Pending Platelet Estimate Pending Platelet Morphology Pending Sodium Level 139 MMOL/L (136-145) Potassium Level 3.3 MMOL/L (3.5-5.1) L Chloride Level 103 MMOL/L (98-107) Carbon Dioxide Level 31 MMOL/L (21-32) Anion Gap 6 mmol/L (5-15) Blood Urea Nitrogen 20 mg/dL (7-18) H Creatinine 1.8 MG/DL (0.55-1.30) H Estimat Glomerular Filtration Rate 43.9 mL/min (>60) Glucose Level 108 MG/DL (74-106) H Calcium Level 7.7 MG/DL (8.5-10.1) L Total Bilirubin 0.5 MG/DL (0.2-1.0) Aspartate Amino Transf (AST/SGOT) 118 U/L (15-37) H Alanine Aminotransferase (ALT/SGPT) 96 U/L (12-78) H Alkaline Phosphatase 83 U/L (46-116) Total Creatine Kinase 3239 U/L (26-308) H Total Protein 5.2 G/DL (6.4-8.2) L Albumin 1.5 G/DL (3.4-5.0) L Globulin 3.7 g/dL Albumin/Globulin Ratio 0.4 (1.0-2.7) L Current Medications Medications (Trade) Dose Ordered Sig/Nakita Route PRN Reason Start Time Stop Time Status Last Admin Dose Admin Folic Acid 1 mg/ Magnesium Sulfate 2000 mg/ Multivitamins 10 ml/Sodium Chloride 1,014.2 ml @ 125 mls/ hr Q24H IV 11/18/17 14:00 12/18/17 13:59 11/21/17 14:36 Levetiracetam 100 ml @ 400 mls/hr EVERY 8 HOURS IVPB 11/18/17 14:00 12/18/17 13:59 11/22/17 05:38 Linezolid 300 ml @ 300 mls/hr Q12HR IVPB 11/21/17 14:00 11/28/17 13:59 11/22/17 08:21 Lorazepam (Ativan 2mg/ml 1ml) 2 mg Q1H PRN IV For Seizures 11/18/17 04:00 11/25/17 03:59 11/22/17 08:21 Pantoprazole (Protonix) 40 mg DAILY IVP 11/18/17 09:00 12/18/17 08:59 11/22/17 08:21 Piperacillin Sod/ Tazobactam Sod 3.375 gm/Sodium Chloride 110 ml @ 27.5 mls/hr Q8HR IVPB 11/21/17 15:00 11/28/17 14:59 11/22/17 05:39 Sodium Bicarbonate 100 ml/Potassium Chloride 40 meq/ Dextrose 1,020 ml @ 125 mls/hr Q8H10M IV 11/21/17 17:15 12/21/17 17:14 11/22/17 05:50 Thiamine HCl 100 mg/Dextrose 56 ml @ 112 mls/hr Q24H IVPB 11/18/17 14:00 12/18/17 13:59 11/21/17 14:01 LEBRON PALENCIA Nov 22, 2017 09:00
[2017-11-22] MEDS ORDERED: Cefepime HCl 1 GM in D5W 55 ML IVPB SCH (11:00)
[2017-11-22] MEDS: Cefepime HCl 1 GM in NS 55 ML IVPB SCH (11:14)
--- NOTE | 2017-11-22 13:48 | Neurology Progress Note ---
Interim History Interim History ROS Limited/Unobtainable: Yes Complaints: coma Events: coma no parox events, tachycardia tachypnea Objective Physical Exam Last Vital Signs Date Time Temp Pulse Resp B/P (MAP) Pulse Ox O2 Delivery O2 Flow Rate FiO2 11/22/17 13:00 121 17 160/90 83 Endotracheal Tube 100 11/22/17 12:00 100.1 Laboratory Tests Test 11/21/17 13:56 11/22/17 03:35 11/22/17 10:22 Arterial Blood pH 7.432 (7.350-7.450) 7.400 (7.350-7.450) Arterial Blood Partial Pressure CO2 49.4 mmHg (35.0-45.0) H 53.0 mmHg (35.0-45.0) H Arterial Blood Partial Pressure O2 72.4 mmHg (75.0-100.0) L 39.8 mmHg (75.0-100.0) Arterial Blood HCO3 32.2 mmol/L (22.0-26.0) H 32.2 mmol/L (22.0-26.0) H Arterial Blood Oxygen Saturation 92.7 % (92.0-98.0) 71.6 % (92.0-98.0) L Arterial Blood Base Excess 6.8 6.3 Duane Test Positive Positive White Blood Count 12.1 K/UL (4.8-10.8) H Red Blood Count 3.13 M/UL (4.70-6.10) L Hemoglobin 10.5 G/DL (14.2-18.0) L Hematocrit 30.1 % (42.0-52.0) L Mean Corpuscular Volume 96 FL (80-99) Mean Corpuscular Hemoglobin 33.6 PG (27.0-31.0) H Mean Corpuscular Hemoglobin Concent 35.0 G/DL (32.0-36.0) Red Cell Distribution Width 12.0 % (11.6-14.8) Platelet Count 113 K/UL (150-450) L Mean Platelet Volume 8.2 FL (6.5-10.1) Neutrophils (%) (Auto) % (45.0-75.0) Lymphocytes (%) (Auto) % (20.0-45.0) Monocytes (%) (Auto) % (1.0-10.0) Eosinophils (%) (Auto) % (0.0-3.0) Basophils (%) (Auto) % (0.0-2.0) Differential Total Cells Counted 100 Neutrophils % (Manual) 94 % (45-75) H Lymphocytes % (Manual) 3 % (20-45) L Monocytes % (Manual) 3 % (1-10) Eosinophils % (Manual) 0 % (0-3) Basophils % (Manual) 0 % (0-2) Band Neutrophils 0 % (0-8) Platelet Estimate Decreased L Platelet Morphology Normal Hypochromasia 1+ Sodium Level 139 MMOL/L (136-145) Potassium Level 3.3 MMOL/L (3.5-5.1) L Chloride Level 103 MMOL/L (98-107) Carbon Dioxide Level 31 MMOL/L (21-32) Anion Gap 6 mmol/L (5-15) Blood Urea Nitrogen 20 mg/dL (7-18) H Creatinine 1.8 MG/DL (0.55-1.30) H Estimat Glomerular Filtration Rate 43.9 mL/min (>60) Glucose Level 108 MG/DL (74-106) H Calcium Level 7.7 MG/DL (8.5-10.1) L Total Bilirubin 0.5 MG/DL (0.2-1.0) Aspartate Amino Transf (AST/SGOT) 118 U/L (15-37) H Alanine Aminotransferase (ALT/SGPT) 96 U/L (12-78) H Alkaline Phosphatase 83 U/L (46-116) Total Creatine Kinase 3239 U/L (26-308) H Total Protein 5.2 G/DL (6.4-8.2) L Albumin 1.5 G/DL (3.4-5.0) L Globulin 3.7 g/dL Albumin/Globulin Ratio 0.4 (1.0-2.7) L General: well developed, no acute distress, other - intubated , now overbreathing, pulm edema, resprate 25/min. hypoxemia, labored respiration Head: normocophalic, other Neck: no rigidity Neurologic Exam Mental Status: other - no responce to voice , decerebrate on pain stimuly, open eyes Speech: other Language: other Cranial Nerve II: other Cranial Nerves III, IV, : other - p 2mm fixed ok horisontal movement Cranial Nerve V: other - no corneal Cranial Nerve VII: other Cranial Nerve VIII: other Cranial Nerve IX: other - no gag Cranial Nerve XI: other Cranial Nerve XII: other Motor System: other - flaccid. on pain decerebrates BUE Sensory: other Coordination: other Deep Tendon Reflexes: 0 bicep (L), 0 bicep (R), 0 tricep (L), 0 tricep (R), 0 brachioradialis (L), 0 brachioradialis (R), 0 knee (L), 0 knee (R), 0 ankle (L) , 0 ankle (R) Reflexes: extensor plantar (L), extensor plantar (R) Impression/Recommendations Problems: (1) coma (2) Status epilepticus (3) NOLVIA (acute kidney injury) Status: unchanged, deteriorating Recommendations #[id number] d/w family d/w staff CT brain noted EEGnoted cont support care prognosis poor dr Reardon opinion noted XAVI SAENZ Nov 22, 2017 13:48
[2017-11-22] MEDS: Thiamine 100mg in D5W 55ml IVPB SCH (14:30)
[2017-11-22] MEDS: Folic Acid 1 MG, Magnesium Sulfate 2,000 MG, Multivitamin - 12 Injection 10 ML in NS w/... IV SCH (14:30)
--- NOTE | 2017-11-22 15:12 | Nephrology Progress Note ---
Assessment/Plan Problem List: (1) CVA (cerebral vascular accident) (2) Rhabdomyolysis (3) Lactic acid acidosis (4) NOLVIA (acute kidney injury) (5) Altered level of consciousness Plan continue iv with bicarb for mitigate rhabdo toxicity, reduce rate, kcl Subjective ROS Limited/Unobtainable: Yes Objective Objective Last 24 Hour Vital Signs Date Time Temp Pulse Resp B/P (MAP) Pulse Ox O2 Delivery O2 Flow Rate FiO2 11/22/17 14:00 118 17 156/90 87 Endotracheal Tube 100 11/22/17 13:00 121 17 160/90 83 Endotracheal Tube 100 11/22/17 12:37 127 44 100 11/22/17 12:00 123 11/22/17 12:00 100.1 126 19 154/82 82 Endotracheal Tube 100 11/22/17 12:00 100 11/22/17 11:17 134 38 100 11/22/17 11:00 119 20 163/93 80 Endotracheal Tube 100 11/22/17 10:00 128 25 171/99 77 Endotracheal Tube 100 11/22/17 09:00 118 20 173/101 86 Endotracheal Tube 100 11/22/17 08:30 135 33 100 11/22/17 08:00 121 11/22/17 08:00 99.7 120 22 135/99 83 Endotracheal Tube 100 11/22/17 08:00 100 11/22/17 07:15 127 38 100 11/22/17 07:00 99.4 114 17 121/101 85 Mechanical Ventilator 100 11/22/17 06:00 98.7 116 15 146/110 84 Mechanical Ventilator 100 11/22/17 05:11 123 29 100 11/22/17 05:00 101.2 122 15 148/93 95 Mechanical Ventilator 100 11/22/17 04:00 101.3 132 16 133/90 94 Mechanical Ventilator 100 11/22/17 04:00 100 11/22/17 04:00 132 11/22/17 03:25 123 26 100 11/22/17 03:00 121 19 140/80 98 Mechanical Ventilator 100 11/22/17 02:00 125 20 143/86 95 Mechanical Ventilator 100 11/22/17 01:11 112 26 100 11/22/17 01:00 98.4 103 14 149/100 95 Mechanical Ventilator 100 11/22/17 00:00 100 11/22/17 00:00 103 11/22/17 00:00 98.4 103 14 149/100 95 Mechanical Ventilator 100 11/21/17 23:13 106 32 100 11/21/17 23:00 100 26 151/106 95 Mechanical Ventilator 100 11/21/17 22:00 96 23 146/96 98 Mechanical Ventilator 100 11/21/17 21:21 101 25 100 11/21/17 21:00 96 27 145/90 95 Mechanical Ventilator 100 11/21/17 20:00 103 11/21/17 20:00 98.9 103 21 142/94 98 Mechanical Ventilator 100 11/21/17 19:00 112 16 137/88 98 Mechanical Ventilator 100 11/21/17 18:31 142 35 100 11/21/17 18:00 99.9 129 25 159/97 95 Mechanical Ventilator 80 11/21/17 17:00 104 20 135/91 99 Mechanical Ventilator 100 11/21/17 16:55 101 20 50 11/21/17 16:30 80 11/21/17 16:00 103 11/21/17 16:00 106 21 141/85 99 Mechanical Ventilator 100 Intake and Output 11/21/17 11/22/17 19:00 07:00 Intake Total 3190.0 ml 2542.2 ml Output Total 2020 ml 1770 ml Balance 1170.0 ml 772.2 ml IV Total 3190.0 ml 2542.2 ml Output Urine Total 2020 ml 1770 ml # Bowel Movements 3 Laboratory Tests 11/22/17 03:35: White Blood Count 12.1H, Red Blood Count 3.13L, Hemoglobin 10.5L, Hematocrit 30.1L, Mean Corpuscular Volume 96, Mean Corpuscular Hemoglobin 33.6H, Mean Corpuscular Hemoglobin Concent 35.0, Red Cell Distribution Width 12.0, Platelet Count 113L, Mean Platelet Volume 8.2, Neutrophils (%) (Auto) , Lymphocytes (%) ( Auto) , Monocytes (%) (Auto) , Eosinophils (%) (Auto) , Basophils (%) (Auto) , Differential Total Cells Counted 100, Neutrophils % (Manual) 94H, Lymphocytes % (Manual) 3L, Monocytes % (Manual) 3, Eosinophils % (Manual) 0, Basophils % ( Manual) 0, Band Neutrophils 0, Platelet Estimate DecreasedL, Platelet Morphology Normal, Hypochromasia 1+, Sodium Level 139, Potassium Level 3.3L, Chloride Level 103, Carbon Dioxide Level 31, Anion Gap 6, Blood Urea Nitrogen 20H, Creatinine 1.8H, Estimat Glomerular Filtration Rate 43.9, Glucose Level 108H, Calcium Level 7.7L, Total Bilirubin 0.5, Aspartate Amino Transf (AST/SGOT ) 118H, Alanine Aminotransferase (ALT/SGPT) 96H, Alkaline Phosphatase 83, Total Creatine Kinase 3239H, Total Protein 5.2L, Albumin 1.5L, Globulin 3.7, Albumin/ Globulin Ratio 0.4L 11/22/17 10:22: Arterial Blood pH 7.400, Arterial Blood Partial Pressure CO2 53.0H, Arterial Blood Partial Pressure O2 39.8*L, Arterial Blood HCO3 32.2H, Arterial Blood Oxygen Saturation 71.6L, Arterial Blood Base Excess 6.3, Duane Test Positive Height (Feet): 5 Height (Inches): 9.00 Weight (Pounds): 204 General Appearance: other - intubated EENT: other - periorbital edema Neck: normal alignment Cardiovascular: regular rhythm Respiratory/Chest: rhonchi - bilaterally Abdomen: non tender, soft Extremities: moderate edema Neurologic: unresponsive VLADIMIR KEYS Nov 22, 2017 15:12
--- NOTE | 2017-11-22 15:45 | Progress Note ---
DATE: 11/20/2017 INTERNAL MEDICINE PROGRESS NOTE SUBJECTIVE: The patient remains without any seizure activity. He is comatose. He is not responsive to pain. OBJECTIVE: VITAL SIGNS: Blood pressure 150/95, pulse 106, respirations 22, and temperature 99.9. LUNGS: Coarse breath sounds. Scattered rhonchi. HEART: Regular rhythm and rate. Normal S1, S2. ABDOMEN: Soft. EXTREMITIES: No edema. DIAGNOSTIC DATA: CT reveals new sinus disease, but no acute bleeding. There are new bilateral internal capsule and right lentiform nucleus lacunar infarcts, which are assumed to be new since they were not present on prior studies. IMPRESSION: 1. Status post Seroquel overdose. 2. Respiratory failure. 3. Acute bilateral cerebral vascular infarcts. 4. Coma. 5. Aspiration pneumonia. 6. Respiratory failure. 7. Severe lactic acidosis, improved. 8. Rhabdomyolysis, improving . 9. Acute kidney injury, improved. PLAN: 1. Intravenous fluids. 2. Ventilator support. 3. Antimicrobials. 4. Family members contemplating palliative care. Leonardo Flor M.D. DR: ALEISHA JOB#: [id number] CC:
[2017-11-22] MEDS: Morphine Sulfate 2mg/ml Inj IVP PRN (20:04)
[2017-11-23] VITALS (24 sets, daily range): BP systolic 135–190; BP diastolic 85–114
[2017-11-23] MEDS: levETIRAcetam 1,000mg/NS100ml 100 ML IVPB SCH ×4 (00:37→22:29)
[2017-11-23] MEDS: Cefepime HCl 1 GM in NS 55 ML IVPB SCH ×3 (00:38→23:19)
[2017-11-23] MEDS: LORazepam Inj 2mg/ml 1ml IV PRN ×7 (00:39→22:48)
[2017-11-23] MEDS: Morphine Sulfate 2mg/ml Inj IVP PRN ×5 (00:39→23:37)
[2017-11-23] MEDS: SODIUM BICARBONATE IV SCH ×3 (02:38→18:27)
[2017-11-23] MEDS: D5W IV SCH ×3 (02:38→18:27)
[2017-11-23] MEDS: POTASSIUM CHLORIDE IV SCH ×3 (02:38→18:27)
[2017-11-23 04:26] LABS: BASOPHILS % (AUTO) 0.9 % (0.0-2.0); EOSINOPHILS % (AUTO) 0.1 % (0.0-3.0); HEMOGLOBIN 10.9 G/DL (14.2-18.0); LYMPHOCYTES % (AUTO) 4.9 % (20.0-45.0); MEAN CORPUSCULAR VOLUME 99 FL (80-99); MONOCYTES % (AUTO) 11.7 % (1.0-10.0); NEUTROPHILS % (AUTO) 82.4 % (45.0-75.0); PLATELET COUNT 190 K/UL (150-450); RED BLOOD COUNT 3.14 M/UL (4.70-6.10); RED CELL DISTRIBUTION WIDTH 12.5 % (11.6-14.8); WHITE BLOOD COUNT 13.3 K/UL (4.8-10.8)
[2017-11-23 04:54] LABS: ANION GAP 5 mmol/L (5-15); BLOOD UREA NITROGEN 23 mg/dL (7-18); CALCIUM 8.3 MG/DL (8.5-10.1); CARBON DIOXIDE 32 MMOL/L (21-32); CHLORIDE 102 MMOL/L (98-107); CREATINE KINASE 1466 U/L (26-308); CREATININE 1.5 MG/DL (0.55-1.30); POTASSIUM 4.1 MMOL/L (3.5-5.1); SODIUM 139 MMOL/L (136-145)
[2017-11-23] MEDS: Pantoprazole Inj IVP SCH (09:10)
--- NOTE | 2017-11-23 12:36 | Infectious Diseases Prog Note ---
Assessment/Plan Assessment/Plan antibiotics : cefepime A 1. pneumonia with staph aureus 2. leucocytosis improving 3. renal failure improving 4. respiratory failure 5. suicidal attempt 6. bipolar disorder P 1. continue cefepime 2. will follow up cultures Subjective ROS Limited/Unobtainable: Yes Allergies: Coded Allergies: SULFA (SULFONAMIDE ANTIBIOTICS) (Verified Allergy, Unknown, 11/18/17) per family Objective Vital Signs Last 24 Hour Vital Signs Date Time Temp Pulse Resp B/P (MAP) Pulse Ox O2 Delivery O2 Flow Rate FiO2 11/23/17 12:00 80 11/23/17 10:33 126 32 75 11/23/17 09:22 111 30 75 11/23/17 09:00 99.9 106 28 159/101 100 Mechanical Ventilator 75 11/23/17 08:00 116 11/23/17 08:00 80 11/23/17 08:00 99.9 113 29 169/100 100 Mechanical Ventilator 75 11/23/17 07:45 99.8 11/23/17 07:23 115 27 75 11/23/17 07:00 100.4 116 28 135/85 100 Mechanical Ventilator 80 11/23/17 06:04 99.7 11/23/17 06:00 100.3 116 29 148/96 100 Mechanical Ventilator 80 11/23/17 06:00 80 11/23/17 05:45 118 31 100 11/23/17 05:00 99.7 117 27 153/92 100 Mechanical Ventilator 100 11/23/17 04:00 99.7 120 24 148/94 99 Mechanical Ventilator 100 11/23/17 04:00 100 11/23/17 04:00 118 11/23/17 03:44 109 29 100 11/23/17 03:00 99.4 109 32 164/103 100 Mechanical Ventilator 100 11/23/17 02:00 98.9 92 30 167/111 99 Mechanical Ventilator 100 11/23/17 01:10 111 27 100 11/23/17 01:00 99.2 109 27 141/96 93 Mechanical Ventilator 100 11/23/17 00:00 100.5 117 26 143/100 97 Mechanical Ventilator 100 11/23/17 00:00 100 11/22/17 23:00 100.0 123 22 157/100 97 Mechanical Ventilator 100 11/22/17 22:57 132 36 100 11/22/17 22:00 138 34 162/112 94 Endotracheal Tube 100 11/22/17 21:00 113 33 100 11/22/17 21:00 113 30 163/113 94 Endotracheal Tube 100 11/22/17 20:00 98.1 110 19 177/107 91 Mechanical Ventilator 100 11/22/17 20:00 110 11/22/17 20:00 100 11/22/17 19:13 132 34 100 11/22/17 19:00 127 25 106/63 78 Endotracheal Tube 100 11/22/17 18:00 133 30 133/45 76 Endotracheal Tube 100 11/22/17 17:00 135 28 175/99 86 Endotracheal Tube 100 11/22/17 16:56 141 30 100 11/22/17 16:00 100 11/22/17 16:00 125 11/22/17 16:00 99.9 120 22 170/100 75 Endotracheal Tube 100 11/22/17 15:00 120 18 155/95 86 Endotracheal Tube 100 11/22/17 14:45 147 31 100 11/22/17 14:00 118 17 156/90 87 Endotracheal Tube 100 11/22/17 13:00 121 17 160/90 83 Endotracheal Tube 100 11/22/17 12:37 127 44 100 Height (Feet): 5 Height (Inches): 9.00 Weight (Pounds): 210 HEENT: other - intubated Respiratory/Chest: lungs clear Cardiovascular: normal rate, regular rhythm, no gallop/murmur Abdomen: soft, non tender Extremities: other - + edema Microbiology Date/Time Source Procedure Growth Status 11/22/17 04:00 Stool Clostridium difficile Toxin Assay - Final Complete Laboratory Tests Test 11/23/17 03:55 White Blood Count 13.3 K/UL (4.8-10.8) H Red Blood Count 3.14 M/UL (4.70-6.10) L Hemoglobin 10.9 G/DL (14.2-18.0) L Hematocrit 31.0 % (42.0-52.0) L Mean Corpuscular Volume 99 FL (80-99) Mean Corpuscular Hemoglobin 34.6 PG (27.0-31.0) H Mean Corpuscular Hemoglobin Concent 35.1 G/DL (32.0-36.0) Red Cell Distribution Width 12.5 % (11.6-14.8) Platelet Count 190 K/UL (150-450) # Mean Platelet Volume 7.9 FL (6.5-10.1) Neutrophils (%) (Auto) 82.4 % (45.0-75.0) H Lymphocytes (%) (Auto) 4.9 % (20.0-45.0) L Monocytes (%) (Auto) 11.7 % (1.0-10.0) H Eosinophils (%) (Auto) 0.1 % (0.0-3.0) Basophils (%) (Auto) 0.9 % (0.0-2.0) Sodium Level 139 MMOL/L (136-145) Potassium Level 4.1 MMOL/L (3.5-5.1) Chloride Level 102 MMOL/L (98-107) Carbon Dioxide Level 32 MMOL/L (21-32) Anion Gap 5 mmol/L (5-15) Blood Urea Nitrogen 23 mg/dL (7-18) H Creatinine 1.5 MG/DL (0.55-1.30) H Estimat Glomerular Filtration Rate 54.2 mL/min (>60) Glucose Level 133 MG/DL (74-106) H Calcium Level 8.3 MG/DL (8.5-10.1) L Magnesium Level 2.9 MG/DL (1.8-2.4) H Total Creatine Kinase 1466 U/L (26-308) H ALEXIA PEREZ Nov 23, 2017 12:36
--- NOTE | 2017-11-23 12:55 | Consultation ---
DATE OF CONSULTATION: 11/21/2017 NEUROLOGY CONSULTATION (Second Opinion): CONSULTING PHYSICIAN: Arden Reardon M.D. REQUESTING PHYSICIAN: Leonardo Flor M.D. HISTORY: Mr. Armand Morales is a 32-year-old, gentleman, of unknown handedness, who does have a past history of depression and alcoholism. On 11/17/2017, he was found unresponsive with bottles of empty Seroquel by him by the paramedics, this was approximately 10 hours after his mother had spoken to him. When the paramedics first evaluated him, he had dilated pupils, was not responsive to pain, had slow respirations, was hypotensive and was tachycardic. An intravenous line was placed and he was started on intravenous fluids. He was then bagged with an Ambu bag. Narcan was given to him with no change noted in his condition. He was then transported to the [facility] emergency room. On being evaluated in the emergency room, his blood pressure was 86/29, his heart rate was 141, his respirations were 7, and pulse oximetry revealed an oxygen saturation of 96%. He was then intubated and artificially ventilated. His initial laboratory tests revealed WBC count elevated to 17,700. His hemoglobin was low at 12.6. His arterial blood gas revealed a pH of 6.95, pCO2 of 97, and a pO2 of 439 with a bicarbonate of 20.9. His chemistry panel revealed a relatively normal chemistry panel except for a carbon dioxide at 19, an anion gap of 21, a creatinine elevated to 1.8 with with a BUN of 17. His glucose was elevated to 130. His CK was at 3449. His urine toxicology screen was positive for benzodiazepines. He was stabilized in the emergency room and then moved to the intensive care unit. In the ICU he was then described as having generalized tonic-clonic seizures which lasted for approximately 4 to 5 hours. The exact details are unknown to us. He however was treated for them with Ativan, Dilantin, and Keppra. He has been comatose ever since. This second opinion neurological consultation was requested to evaluate the patient from a neurological point of view to help with prognostication. At this point in time, the patient is comatose but is exhibiting spontaneous myoclonic jerks. No further history can be obtained. PAST MEDICAL HISTORY: Significant for depression and alcoholism. FAMILY HISTORY: Unavailable. PERSONAL HISTORY: Unavailable. PRESENT MEDICATIONS: Include piperacillin and tazobactam, linezolid, Keppra 1 gram every 8 hours, thiamine, pantoprazole, and Ativan 2 mg as needed. PHYSICAL EXAMINATION: GENERAL: He is a well-developed and well-nourished, gentleman, lying in ICU bed, connected to a ventilator via an orotracheal tube. VITAL SIGNS: Pulse 112 per minute, blood pressure 137/88 mmHg, respirations 16 per minute, temperature 99.9 degrees Fahrenheit rectal. HEAD: Normocephalic and atraumatic. NECK: No neck rigidity was observed. EENT: EENT benign. NEUROLOGICAL EXAMINATION: MENTAL STATUS EXAMINATION: He was comatose and only responded to deep pain with withdrawal of his lower extremities but not of his upper extremities. Further mental status testing was impossible. SPEECH: Could not be tested. LANGUAGE: Could not be tested. CRANIAL NERVE EXAMINATION: II: He did not blink to threat. III, IV, AND : The external ocular movements were present on oculocephalic maneuvers. Pupils were 5 mm in diameter and reactive sluggishly to light. V & VII: Corneal reflexes were present and equal bilaterally. VIII: He did not respond to sounds and had no nystagmus. IX & X: The gag reflex was absent on manipulating the endotracheal tube. XI: The sternocleidomastoids and trapezii did not function. XII: Could not be tested adequately. MOTOR SYSTEM: The tone was normal in all four extremities. Examination of muscle mass revealed no focal wasting. Examination of power was impossible to perform on individual muscle groups as the patient was unable to cooperate however when deep painful stimuli were applied he did withdraw both his lower extremities but not his upper extremities. SENSORY EXAMINATION: He responded to deep pain with withdrawal in the lower extremities but not in the upper extremities. REFLEXES: 1+ and bilaterally symmetrical at the biceps, triceps, brachioradialis, and knees, 0 at both ankles. The plantar responses were extensor bilaterally. COORDINATION, STANCE & GAIT: Could not be tested. DIAGNOSTIC IMPRESSION: 1. Mr. Armand Morales is a 32-year-old, gentleman, of unknown handedness, who does have a prior history of depression and alcoholism who on 11/17/2017 was found unresponsive with bottles empty Seroquel by him. When the paramedics got to him, his pupils were dilated. He was unresponsive to pain, had slow respirations, was hypotensive and tachycardic. Intravenous fluids were started and he was bagged and brought into [facility] emergency room. He was then intubated and artificially ventilated. His pressure was supported and following that he was noted to have what were described as being generalized tonic-clonic seizures which lasted for approximately 4 to 5 hours and were treated with Ativan, Dilantin, and Keppra. He has been comatose ever since. 2. On neurological examination, at this time, he exhibits some spontaneous myoclonic movements. He only responds to deep pain but withdrawal in both his lower extremities. He does not blink to threat. His pupils are 5 mm in diameter and reactive sluggishly to light. His external ocular movements are present on oculocephalic maneuvers. His corneal reflexes are present and equal. His gag reflex is absent. His deep tendon reflexes are globally diminished and his plantar responses are extensor. 3. The CT scan of the brain performed on 11/17/[address] scan of the brain performed on 11/20/2017 revealed bilateral bilateral internal capsule and right lentiform nucleus lucencies consistent with significant ischemic cerebral injury. 5. His EEG done on 11/19/2017 revealed what was described as being severe encephalopathy by Dr. Lan who read the EEG. 6. The patient's history, neurological examination, laboratory data, imaging studies and EEG are most compatible with a severe anoxic ischemic cerebral injury due to a possible drug overdose. Exact drug is unknown at this point in time. 7. The prognosis for recovery of neurological function is poor in light of the above-mentioned findings. RECOMMENDATIONS: 1. Agree with management thus far as per Dr. Lan and Dr. Flor. 2. Decision regarding further management as per Dr. Lan and Dr. Flor and the patient's family. Thank you for entrusting me with the care of Mr. Morales. Please do let me know if I can be of any further help. Arden Reardon M.D., M.S.P.H. DR: Rita JOB#: [id number] AME
--- NOTE | 2017-11-23 12:56 | Progress Note ---
DATE: 11/21/2017 INTERNAL MEDICINE PROGRESS NOTE SUBJECTIVE: The patient was seen in neurologic followup by Dr. Lan and second opinion Neurology consult today by Dr. Reardon. Both physicians felt that the patient's cerebral injury was severe due to anoxic and ischemic cerebral injury, related to drug overdose and that a prognosis for recovery of full neurologic function was extremely poor. The patient remains on ventilator support. Hypoxia remains an issue. Family members are considering withdrawal of care. DNR is being put into place once confirmation from both parents is obtained. OBJECTIVE: NEUROLOGIC: Myoclonus, withdraws to deep pain only. LUNGS: Bilateral rhonchi. HEART: Regular rhythm. Rapid rate. Normal S1 and S2. ABDOMEN: Soft. EXTREMITIES: Trace dependent edema. LABORATORY AND DIAGNOSTIC DATA: Labs are reviewed. Chest x-ray reveals worsening bilateral infiltrates. IMPRESSION: 1. Drug overdose. 2. Anoxic and ischemic encephalopathy. 3. Respiratory failure. 4. Pulmonary infiltrate due to aspiration pneumonia and possibly acute respiratory distress syndrome. 5. Secondary sinus tachycardia. 6. Acute renal failure, improved. 7. Hypokalemia. PLAN: 1. Finalize advance directives. 2. Antibiotics per Infectious Disease benefits sales consultant. 3. Ventilator support. 4. Replace potassium. 5. Adjust IV fluids. Leonardo Flor M.D. DR: DARREN JOB#: [id number] CC:
--- NOTE | 2017-11-23 12:56 | Progress Note ---
DATE: 11/22/2017 INTERNAL MEDICINE PROGRESS NOTE SUBJECTIVE: the patient was seen in neurologic consultation x2. Both agree that neurologic prognosis is extremely poor for meaningful recovery. A meeting was undertaken with the patient's parents and brother today and this was relayed. The patient apparently has a prior will requesting that no heroics be performed. The patient has increasing oxygen requirements and chest radiograph revealing worsening infiltrates. Sputum is positive for MRSA. CAT scan of the brain revealed several infarcts. OBJECTIVE: LUNGS: Labored respiration. Bilateral rales. HEART: Regular rhythm. Rapid rate. Normal S1, S2. ABDOMEN: Soft, nontender. EXTREMITIES: Trace dependent edema. IMPRESSION: 1. Drug overdose. 2. Anoxic encephalopathy with cerebrovascular accident. 3. Methicillin-resistant Staphylococcus aureus pneumonia. 4. Acute respiratory distress syndrome. 5. Extremely poor neurologic prognosis for any meaningful recovery. 6. Rhabdomyolysis, improving. 7. Acute renal failure, resolving. PLAN: 1. Discussed with family members. All parties agree with DNR at this time. 2. Antimicrobial therapy. 3. Respiratory hygiene. 4. Continue hydration. 5. Family members will reconvene in the next 48-72 hours and if condition has not improved, they will consider withdrawal of support and comfort care measures. Leonardo Flor M.D. : Darion JOB#: [id number] CC:
[2017-11-23] MEDS: Folic Acid 1 MG, Magnesium Sulfate 2,000 MG, Multivitamin - 12 Injection 10 ML in NS w/... IV SCH (14:53)
[2017-11-23] MEDS: Thiamine 100mg in D5W 55ml IVPB SCH (14:54)
--- NOTE | 2017-11-23 17:20 | Nephrology Progress Note ---
Assessment/Plan Problem List: (1) CVA (cerebral vascular accident) (2) Rhabdomyolysis (3) Lactic acid acidosis (4) NOLVIA (acute kidney injury) (5) Altered level of consciousness Plan continue iv with bicarb for mitigate rhabdo toxicity, reduce rate, kcl Subjective ROS Limited/Unobtainable: Yes Objective Objective Last 24 Hour Vital Signs Date Time Temp Pulse Resp B/P (MAP) Pulse Ox O2 Delivery O2 Flow Rate FiO2 11/23/17 16:11 75 18 15:00 100.4 121 28 167/97 99 Mechanical Ventilator 75 11/23/17 14:40 114 31 75 11/23/17 14:00 100.4 121 28 151/95 99 Mechanical Ventilator 75 11/23/17 13:09 121 32 75 11/23/17 13:08 100.5 11/23/17 13:00 100.6 128 28 159/93 99 Mechanical Ventilator 75 11/23/17 12:00 80 11/23/17 12:00 112 11/23/17 12:00 101.6 106 28 166/101 100 Mechanical Ventilator 75 11/23/17 11:00 100.6 106 28 160/96 100 Mechanical Ventilator 75 11/23/17 10:33 126 32 75 18 10:00 100.6 106 28 158/111 100 Mechanical Ventilator 75 11/23/17 09:22 111 30 75 11/23/17 09:00 99.9 106 28 159/101 100 Mechanical Ventilator 75 11/23/17 08:00 116 11/23/17 08:00 80 11/23/17 08:00 99.9 113 29 169/100 100 Mechanical Ventilator 75 11/23/17 07:23 115 27 75 18 07:00 100.4 116 28 135/85 100 Mechanical Ventilator 80 11/23/17 06:04 99.7 18 06:00 100.3 116 29 148/96 100 Mechanical Ventilator 80 18 06:00 80 11/23/17 05:45 118 31 100 18 05:00 99.7 117 27 153/92 100 Mechanical Ventilator 100 11/23/17 04:00 99.7 120 24 148/94 99 Mechanical Ventilator 100 11/23/17 04:00 100 18 04:00 118 18 03:44 109 29 100 2/2/18 03:00 99.4 109 32 164/103 100 Mechanical Ventilator 100 11/23/17 02:00 98.9 92 30 167/111 99 Mechanical Ventilator 100 11/23/17 01:10 111 27 100 11/23/17 01:00 99.2 109 27 141/96 93 Mechanical Ventilator 100 11/23/17 00:00 100.5 117 26 143/100 97 Mechanical Ventilator 100 11/23/17 00:00 100 11/22/17 23:00 100.0 123 22 157/100 97 Mechanical Ventilator 100 11/22/17 22:57 132 36 100 11/22/17 22:00 138 34 162/112 94 Endotracheal Tube 100 11/22/17 21:00 113 33 100 11/22/17 21:00 113 30 163/113 94 Endotracheal Tube 100 11/22/17 20:00 98.1 110 19 177/107 91 Mechanical Ventilator 100 11/22/17 20:00 110 11/22/17 20:00 100 11/22/17 19:13 132 34 100 11/22/17 19:00 127 25 106/63 78 Endotracheal Tube 100 11/22/17 18:00 133 30 133/45 76 Endotracheal Tube 100 Intake and Output 11/22/17 11/23/17 19:00 07:00 Intake Total 2121.0 ml 2210 ml Output Total 1670 ml 1380 ml Balance 451.0 ml 830 ml Free Water 50 ml IV Total 2121.0 ml 1810 ml Tube Feeding 350 ml Output Urine Total 1670 ml 1300 ml Stool Total 80 ml Laboratory Tests 11/23/17 03:55: White Blood Count 13.3H, Red Blood Count 3.14L, Hemoglobin 10.9L, Hematocrit 31.0L, Mean Corpuscular Volume 99, Mean Corpuscular Hemoglobin 34.6H, Mean Corpuscular Hemoglobin Concent 35.1, Red Cell Distribution Width 12.5, Platelet Count 190#, Mean Platelet Volume 7.9, Neutrophils (%) (Auto) 82.4H, Lymphocytes (%) (Auto) 4.9L, Monocytes (%) (Auto) 11.7H, Eosinophils (%) (Auto) 0.1, Basophils (%) (Auto) 0.9, Sodium Level 139, Potassium Level 4.1, Chloride Level 102, Carbon Dioxide Level 32, Anion Gap 5, Blood Urea Nitrogen 23H, Creatinine 1.5H, Estimat Glomerular Filtration Rate 54.2, Glucose Level 133H, Calcium Level 8.3L, Magnesium Level 2.9H, Total Creatine Kinase 1466H Height (Feet): 5 Height (Inches): 9.00 Weight (Pounds): 210 General Appearance: other - intubated, appears to have seizure with stimulation Neck: normal alignment Cardiovascular: regular rhythm Respiratory/Chest: lungs clear Abdomen: soft, no organomegaly Extremities: moderate edema Neurologic: unresponsive VLADIMIR KEYS Nov 23, 2017 17:20
[2017-11-24] VITALS (18 sets, daily range): BP systolic 151–190; BP diastolic 80–111
[2017-11-24] MEDS: Acetaminophen 650mg/20.3ml NG PRN (01:36)
[2017-11-24] MEDS: LORazepam Inj 2mg/ml 1ml IV PRN ×6 (03:35→21:54)
[2017-11-24] MEDS: Morphine Sulfate 2mg/ml Inj IVP PRN ×4 (03:36→18:04)
--- NOTE | 2017-11-24 03:45 | Progress Note ---
DATE: 11/23/2017 INTERNAL MEDICINE PROGRESS NOTE SUBJECTIVE: The patient is on ventilator support. Episodes of agitation are noted. The patient has no meaningful interaction. SUBJECTIVE: VITAL SIGNS: 159/101 is the maximal blood pressure with heart rate 106, respiratory rate 28. LUNGS: Coarse breath sounds. Scattered rhonchi. HEART: Regular rhythm and rate. Normal S1, S2. ABDOMEN: Soft. EXTREMITIES: Trace edema. NEUROLOGIC: Pupils are dilated. The patient is noncommunicative and does not respond to questioning. LABORATORY DATA: Labs are reviewed. IMPRESSION: 1. Status post suicide attempt with overdose of Seroquel. 2. Anoxic encephalopathy. 3. Cerebrovascular insult and accident. 4. Status epilepticus, resolved. 5. Staphylococcus aureus pneumonia. 6. Respiratory failure. 7. Hypoxia. 8. Remains critical and guarded. 9. Neurologic prognosis is dismal. DISCUSSION AND PLAN: The patient is now DNR based on meeting I had yesterday with family. In addition, the family members are considering withdrawal of care to hospice level, however, this will be determined in the next several days. If no improvement is noted and finalized with a bioethics consultation on Sunday. Further, the patient will be continued on ventilator support, antimicrobials, and appropriate IV fluids. The patient will also have electrolytes replacement as indicated. He will continue on feedings by NG tube, and DVT prophylaxis. Leonardo Flor M.D. DR: JEFF JOB#: [id number] CC: AME
[2017-11-24] MEDS: levETIRAcetam 1,000mg/NS100ml 100 ML IVPB SCH ×3 (05:54→21:49)
[2017-11-24 06:15] LABS: ANION GAP 3 mmol/L (5-15); BLOOD UREA NITROGEN 23 mg/dL (7-18); CARBON DIOXIDE 33 MMOL/L (21-32); CHLORIDE 106 MMOL/L (98-107); CREATINE KINASE 960 U/L (26-308); CREATININE 1.3 MG/DL (0.55-1.30); POTASSIUM 3.8 MMOL/L (3.5-5.1); SODIUM 142 MMOL/L (136-145)
[2017-11-24] MEDS: Pantoprazole Inj IVP SCH (08:07)
[2017-11-24] MEDS: D5W IV SCH (08:07)
[2017-11-24] MEDS: SODIUM BICARBONATE IV SCH (08:07)
[2017-11-24] MEDS: POTASSIUM CHLORIDE IV SCH (08:07)
[2017-11-24] MEDS: Cefepime HCl 1 GM in NS 55 ML IVPB SCH ×2 (10:29→18:04)
--- NOTE | 2017-11-24 13:07 | Nephrology Progress Note ---
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 Subjective ROS Limited/Unobtainable: Yes Objective Objective Last 24 Hour Vital Signs Date Time Temp Pulse Resp B/P (MAP) Pulse Ox O2 Delivery O2 Flow Rate FiO2 11/24/17 12:46 98.8 11/24/17 12:39 155 41 100 11/24/17 11:03 153 42 100 11/24/17 11:00 141 35 166/98 93 Mechanical Ventilator 80 11/24/17 10:30 160/89 11/24/17 10:00 138 28 160/89 97 Mechanical Ventilator 80 11/24/17 09:20 136 36 80 11/24/17 09:00 151 35 168/87 97 Mechanical Ventilator 80 11/24/17 08:00 99.9 130 30 160/99 98 Mechanical Ventilator 80 11/24/17 08:00 80 11/24/17 08:00 151 11/24/17 06:45 152 38 80 11/24/17 05:10 128 31 80 11/24/17 03:12 115 29 80 11/24/17 02:06 100.7 11/24/17 01:00 101.0 131 33 172/102 96 Mechanical Ventilator 80 11/24/17 00:50 139 35 80 11/24/17 00:00 156 11/24/17 00:00 100.0 143 30 169/101 93 Mechanical Ventilator 80 11/23/17 23:01 145 37 80 18 23:00 99.9 159 30 169/101 94 Mechanical Ventilator 80 18 22:00 99.7 138 30 162/96 95 Mechanical Ventilator 80 18 21:00 99.6 140 29 167/98 94 Mechanical Ventilator 80 18 21:00 124 35 80 218 20:00 129 2/2/18 20:00 75 18 20:00 99.6 129 34 182/96 95 Mechanical Ventilator 75 18 19:08 135 38 100 218 19:00 99.6 131 34 158/92 95 Mechanical Ventilator 75 18 18:00 99.5 127 35 174/100 96 Mechanical Ventilator 75 11/23/17 17:21 135 38 100 11/23/17 17:00 99.4 126 31 159/100 96 Mechanical Ventilator 75 11/23/17 16:11 75 11/23/17 16:00 99.4 126 34 190/114 93 Mechanical Ventilator 75 11/23/17 16:00 120 11/23/17 15:00 100.4 121 28 167/97 99 Mechanical Ventilator 75 11/23/17 14:40 114 31 75 11/23/17 14:00 100.4 121 28 151/95 99 Mechanical Ventilator 75 11/23/17 13:09 121 32 75 11/23/17 13:08 100.5 Intake and Output 11/23/17 11/24/17 19:00 07:00 Intake Total 3255 ml 1455 ml Output Total 1265 ml 500 ml Balance 1990 ml 955 ml Free Water 100 ml 60 ml IV Total 2675 ml 1155 ml Tube Feeding 480 ml 240 ml Output Urine Total 1265 ml 500 ml Laboratory Tests 11/24/17 05:20: Sodium Level 142, Potassium Level 3.8, Chloride Level 106, Carbon Dioxide Level 33H, Anion Gap 3L, Blood Urea Nitrogen 23H, Creatinine 1.3, Estimat Glomerular Filtration Rate > 60, Glucose Level 120H, Calcium Level 8.0L, Total Creatine Kinase 960H Height (Feet): 5 Height (Inches): 9.00 Weight (Pounds): 210 General Appearance: moderate distress Neck: supple Cardiovascular: regular rhythm Respiratory/Chest: rhonchi - bilaterally Extremities: moderate edema Neurologic: unresponsive VLADIMIR KEYS Nov 24, 2017 13:07
[2017-11-24] MEDS: 1/2NS w/KCl 20mEq 1000ml 1,000 ML IV SCH ×2 (14:00→14:34)
[2017-11-24] MEDS: Thiamine 100mg in D5W 55ml IVPB SCH (14:33)
[2017-11-24] MEDS: Folic Acid 1 MG, Magnesium Sulfate 2,000 MG, Multivitamin - 12 Injection 10 ML in NS w/... IV SCH (14:34)
[2017-11-24] MEDS ORDERED: Tubing IV Secondary IV ONE (16:37)
[2017-11-24] MEDS ORDERED: D5W 275ml ONE (16:37)
[2017-11-24] MEDS: Metoprolol Tartrate 50mg tab NG SCH (21:48)
[2017-11-25] VITALS (24 sets, daily range): BP systolic 106–187; BP diastolic 88–109
[2017-11-25] MEDS: 1/2NS w/KCl 20mEq 1000ml 1,000 ML IV SCH ×2 (00:17→15:30)
[2017-11-25] MEDS: Cefepime HCl 1 GM in NS 55 ML IVPB SCH ×3 (02:42→17:26)
[2017-11-25] MEDS: levETIRAcetam 1,000mg/NS100ml 100 ML IVPB SCH ×3 (06:11→21:48)
[2017-11-25 06:16] LABS: HEMATOCRIT 29.1 % (42.0-52.0); HEMOGLOBIN 9.9 G/DL (14.2-18.0); MEAN CORPUSCULAR VOLUME 101 FL (80-99); PLATELET COUNT 212 K/UL (150-450); RED BLOOD COUNT 2.89 M/UL (4.70-6.10); RED CELL DISTRIBUTION WIDTH 13.1 % (11.6-14.8)
[2017-11-25 06:32] LABS: WHITE BLOOD COUNT 28.4 K/UL (4.8-10.8)
[2017-11-25 06:33] LABS: ANION GAP 8 mmol/L (5-15); BLOOD UREA NITROGEN 30 mg/dL (7-18); CALCIUM 8.3 MG/DL (8.5-10.1); CARBON DIOXIDE 30 MMOL/L (21-32); CHLORIDE 110 MMOL/L (98-107); CREATININE 1.2 MG/DL (0.55-1.30); POTASSIUM 4.3 MMOL/L (3.5-5.1); SODIUM 147 MMOL/L (136-145)
--- NOTE | 2017-11-25 07:56 | Consultation ---
Consult Note Assessment/Plan #[id number] vdrf anoxic encephalopathy drug overdose pna staph aureus status epilipticus multiple lacunar cva MIRELLA ZHENG DO Nov 25, 2017 07:56
--- NOTE | 2017-11-25 08:39 | Diagnostic Imaging Report ---
Indication: Status post nasogastric tube placement Technique: One view of the chest Comparison: 11/21/2017 Findings: Interim placement of a nasogastric tube, tip projecting beyond the edge of the image, proximal port possibly other just beyond the gastric esophageal junction. Stable satisfactory position of endotracheal tube. There is worsening of bilateral diffuse and extensive airspace disease, slightly worse on the right than on the left. There is probably some pleural fluid on the left. Impression: Satisfactory nasogastric intubation Worsening bilateral pulmonary infiltrates versus edema. This agrees with the preliminary interpretation provided overnight by [facility] teleradiology service.
--- NOTE | 2017-11-25 08:49 | Infectious Diseases Prog Note ---
Assessment/Plan Assessment/Plan A; sepsis/SIRS with fever & Leukocytosis Aspiration Pneumonia, MSSA in sputum Acute renal failure improving Hypercapnic respiratory failure Anoxic encephalopathy Drug overdose Rhabdomyolysis Diarrhea , C. difficile negative P; Continue Cefepime, add Flagyl repeat CXR, UA, UC, LFT Subjective ROS Limited/Unobtainable: Yes Constitutional: Reports: fever, other - T lid=831 Gastrointestinal/Abdominal: Reports: diarrhea Allergies: Coded Allergies: SULFA (SULFONAMIDE ANTIBIOTICS) (Verified Allergy, Unknown, 11/18/17) per family Objective Vital Signs Last 24 Hour Vital Signs Date Time Temp Pulse Resp B/P (MAP) Pulse Ox O2 Delivery O2 Flow Rate FiO2 11/25/17 08:00 100 11/25/17 08:00 99.9 135 32 177/108 96 Mechanical Ventilator 100 11/25/17 08:00 135 11/25/17 07:17 128 32 100 11/25/17 07:00 127 30 171/102 94 Mechanical Ventilator 100 11/25/17 06:00 130 37 160/105 98 Mechanical Ventilator 100 11/25/17 05:13 121 32 100 11/25/17 05:00 119 37 166/109 98 Mechanical Ventilator 100 11/25/17 04:00 100 11/25/17 04:00 127 17 175/96 90 Mechanical Ventilator 100 11/25/17 04:00 127 11/25/17 03:00 128 35 166/93 88 Mechanical Ventilator 100 11/25/17 02:00 122 37 106/88 91 Mechanical Ventilator 80 11/25/17 01:00 114 34 179/95 90 Mechanical Ventilator 80 11/25/17 00:52 112 31 100 11/25/17 00:00 98.6 105 26 187/94 93 Mechanical Ventilator 80 11/25/17 00:00 100 11/25/17 00:00 105 11/24/17 23:17 106 31 100 11/24/17 23:00 108 26 151/83 95 Mechanical Ventilator 80 11/24/17 22:00 100.2 131 28 161/85 96 Mechanical Ventilator 80 11/24/17 21:48 136 189/103 11/24/17 21:17 133 35 100 11/24/17 21:00 136 31 189/103 94 Mechanical Ventilator 80 11/24/17 20:00 100 11/24/17 20:00 102.0 144 34 177/105 92 Mechanical Ventilator 80 11/24/17 20:00 144 11/24/17 19:51 142 35 100 11/24/17 19:00 150 32 190/111 95 Mechanical Ventilator 80 11/24/17 18:34 99.6 218 18:05 166/80 2 18:00 137 32 179/101 95 Mechanical Ventilator 80 11/24/17 17:01 154 50 100 11/24/17 17:00 144 32 166/80 95 Mechanical Ventilator 80 11/24/17 16:00 145 11/24/17 16:00 100 11/24/17 16:00 99.6 140 26 169/101 94 Mechanical Ventilator 80 11/24/17 15:15 152 50 100 11/24/17 15:00 139 30 170/95 95 Mechanical Ventilator 80 11/24/17 14:00 137 25 175/88 95 Mechanical Ventilator 80 11/24/17 13:00 139 35 170/100 93 Mechanical Ventilator 80 11/24/17 12:39 155 41 100 11/24/17 12:00 80 11/24/17 12:00 143 11/24/17 12:00 98.8 135 26 180/99 94 Mechanical Ventilator 80 11/24/17 11:03 153 42 100 11/24/17 11:00 141 35 166/98 93 Mechanical Ventilator 80 11/24/17 10:30 160/89 11/24/17 10:00 138 28 160/89 97 Mechanical Ventilator 80 11/24/17 09:20 136 36 80 11/24/17 09:00 151 35 168/87 97 Mechanical Ventilator 80 Height (Feet): 5 Height (Inches): 9.00 Weight (Pounds): 210 HEENT: other - orally intubated Respiratory/Chest: lungs clear, respiratory distress, other - on ventilator Cardiovascular: tachycardia Abdomen: soft, non tender, other - orogastric tube, rectal tube Extremities: other - edema of hands Neurologic/Psychiatric: disoriented, unresponsiveness Laboratory Tests Test 11/25/17 04:30 White Blood Count 28.4 K/UL (4.8-10.8) *H Red Blood Count 2.89 M/UL (4.70-6.10) L Hemoglobin 9.9 G/DL (14.2-18.0) L Hematocrit 29.1 % (42.0-52.0) L Mean Corpuscular Volume 101 FL (80-99) H Mean Corpuscular Hemoglobin 34.1 PG (27.0-31.0) H Mean Corpuscular Hemoglobin Concent 33.8 G/DL (32.0-36.0) Red Cell Distribution Width 13.1 % (11.6-14.8) Platelet Count 212 K/UL (150-450) Mean Platelet Volume 7.1 FL (6.5-10.1) Neutrophils (%) (Auto) % (45.0-75.0) Lymphocytes (%) (Auto) % (20.0-45.0) Monocytes (%) (Auto) % (1.0-10.0) Eosinophils (%) (Auto) % (0.0-3.0) Basophils (%) (Auto) % (0.0-2.0) Neutrophils % (Manual) Pending Lymphocytes % (Manual) Pending Platelet Estimate Pending Platelet Morphology Pending Sodium Level 147 MMOL/L (136-145) H Potassium Level 4.3 MMOL/L (3.5-5.1) Chloride Level 110 MMOL/L (98-107) H Carbon Dioxide Level 30 MMOL/L (21-32) Anion Gap 8 mmol/L (5-15) Blood Urea Nitrogen 30 mg/dL (7-18) H Creatinine 1.2 MG/DL (0.55-1.30) Estimat Glomerular Filtration Rate > 60 mL/min (>60) Glucose Level 95 MG/DL (74-106) Calcium Level 8.3 MG/DL (8.5-10.1) L Pro-B-Type Natriuretic Peptide 20099 pg/mL (0-125) H Current Medications Medications (Trade) Dose Ordered Sig/[place] Route PRN Reason Start Time Stop Time Status Last Admin Dose Admin Acetaminophen (Tylenol) 650 mg Q4HR PRN NG For Pain 11/23/17 20:45 12/23/17 20:44 11/24/17 01:36 Cefepime HCl 1 gm/ Sodium Chloride 55 ml @ 110 mls/hr Q8H IVPB 11/24/17 10:00 12/01/17 09:59 11/25/17 02:42 Clonidine HCl (Catapres Tab) 0.1 mg Q4H PRN ORAL SBP > 160 11/24/17 10:00 12/24/17 09:59 11/24/17 18:05 Folic Acid 1 mg/ Magnesium Sulfate 2000 mg/ Multivitamins 10 ml/Sodium Chloride 1,014.2 ml @ 125 mls/ hr Q24H IV 11/18/17 14:00 12/18/17 13:59 11/24/17 14:34 Levetiracetam 100 ml @ 400 mls/hr EVERY 8 HOURS IVPB 11/18/17 14:00 12/18/17 13:59 11/25/17 06:11 Lorazepam (Ativan 2mg/ml 1ml) 1 mg Q4H PRN IV For Anxiety 11/22/17 18:30 11/29/17 18:29 11/24/17 03:35 Metoprolol Tartrate (Lopressor) 50 mg Q12HR NG 11/24/17 21:00 12/24/17 20:59 11/24/17 21:48 Morphine Sulfate (Morphine Sulfate) 2 mg Q4H PRN IVP Pain 4-10 11/22/17 18:30 11/29/17 18:29 11/24/17 18:04 Pantoprazole (Protonix) 40 mg DAILY IVP 11/18/17 09:00 12/18/17 08:59 11/24/17 08:07 Sodium 1,000 ml @ 75 mls/hr [id number] IV 11/24/17 14:00 12/24/17 13:59 11/25/17 00:17 Thiamine HCl 100 mg/Dextrose 56 ml @ 112 mls/hr Q24H IVPB 11/18/17 14:00 12/18/17 13:59 11/24/17 14:33 LEBRON PALENCIA Nov 25, 2017 08:49
[2017-11-25] MEDS: Metoprolol Tartrate 50mg tab NG SCH ×2 (09:03→20:51)
[2017-11-25] MEDS: Pantoprazole Inj IVP SCH (09:03)
[2017-11-25] MEDS: metroNIDAZOLE 500mg tab NG SCH ×3 (09:55→21:48)
[2017-11-25] MEDS ORDERED: Tubing IV Secondary IV ONE (10:13)
[2017-11-25] MEDS ORDERED: NS 500ML ONE (10:13)
[2017-11-25] MEDS ORDERED: Sterile Water For Irrig 2000ml IRRIG ONE ×2 (10:13→18:35)
[2017-11-25] MEDS ORDERED: NS Irrig 1000ml ONE ×2 (10:22→18:35)
[2017-11-25 11:19] LABS: APPEARANCE,URINE CLEAR; BILIRUBIN, URINE NEGATIVE (NEGATIVE); COLOR,URINE PALE YELLOW; GLUCOSE, URINE (UA) 1+ (NEGATIVE); KETONES,URINE 2+ (NEGATIVE); LEUKOCYTE ESTERASE ,URINE NEGATIVE (NEGATIVE); NITRITE,URINE NEGATIVE (NEGATIVE); PH,URINE 5 (4.5-8.0); PROTEIN,URINE 2+ (NEGATIVE); UROBILINOGEN,URINE NORMAL MG/DL (0.0-1.0)
[2017-11-25] MEDS: Thiamine 100mg in D5W 55ml IVPB SCH (14:28)
[2017-11-25] MEDS: Folic Acid 1 MG, Magnesium Sulfate 2,000 MG, Multivitamin - 12 Injection 10 ML in NS w/... IV SCH (14:29)
--- NOTE | 2017-11-25 15:15 | Nephrology Progress Note ---
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 Subjective ROS Limited/Unobtainable: Yes Objective Objective Last 24 Hour Vital Signs Date Time Temp Pulse Resp B/P (MAP) Pulse Ox O2 Delivery O2 Flow Rate FiO2 11/25/17 13:12 124 31 100 11/25/17 12:00 100 11/25/17 12:00 100.0 125 24 171/103 96 Mechanical Ventilator 100 11/25/17 11:00 120 25 169/100 96 Mechanical Ventilator 100 11/25/17 10:45 130 29 100 11/25/17 10:00 124 22 166/101 96 Mechanical Ventilator 100 11/25/17 09:21 125 33 100 11/25/17 09:03 135 177/108 11/25/17 09:00 130 27 165/95 95 Mechanical Ventilator 100 11/25/17 08:00 100 11/25/17 08:00 99.9 135 32 177/108 96 Mechanical Ventilator 100 11/25/17 08:00 135 11/25/17 07:17 128 32 100 11/25/17 07:00 127 30 171/102 94 Mechanical Ventilator 100 11/25/17 06:00 130 37 160/105 98 Mechanical Ventilator 100 11/25/17 05:13 121 32 100 11/25/17 05:00 119 37 166/109 98 Mechanical Ventilator 100 11/25/17 04:00 100 11/25/17 04:00 127 17 175/96 90 Mechanical Ventilator 100 11/25/17 04:00 127 11/25/17 03:00 128 35 166/93 88 Mechanical Ventilator 100 11/25/17 02:00 122 37 106/88 91 Mechanical Ventilator 80 11/25/17 01:00 114 34 179/95 90 Mechanical Ventilator 80 11/25/17 00:52 112 31 100 11/25/17 00:00 98.6 105 26 187/94 93 Mechanical Ventilator 80 11/25/17 00:00 100 11/25/17 00:00 105 11/24/17 23:17 106 31 100 11/24/17 23:00 108 26 151/83 95 Mechanical Ventilator 80 11/24/17 22:00 100.2 131 28 161/85 96 Mechanical Ventilator 80 11/24/17 21:48 136 189/103 11/24/17 21:17 133 35 100 11/24/17 21:00 136 31 189/103 94 Mechanical Ventilator 80 11/24/17 20:00 100 11/24/17 20:00 102.0 144 34 177/105 92 Mechanical Ventilator 80 11/24/17 20:00 144 11/24/17 19:51 142 35 100 11/24/17 19:00 150 32 190/111 95 Mechanical Ventilator 80 11/24/17 18:34 99.6 11/24/17 18:05 166/80 11/24/17 18:00 137 32 179/101 95 Mechanical Ventilator 80 11/24/17 17:01 154 50 100 11/24/17 17:00 144 32 166/80 95 Mechanical Ventilator 80 11/24/17 16:00 145 11/24/17 16:00 100 11/24/17 16:00 99.6 140 26 169/101 94 Mechanical Ventilator 80 Intake and Output 11/24/17 11/25/17 19:00 07:00 Intake Total 1666 ml 2185 ml Output Total 1870 ml 1440 ml Balance -204 ml 745 ml Free Water 100 ml IV Total 1076 ml 1305 ml Tube Feeding 590 ml 780 ml Output Urine Total 1870 ml 1240 ml Stool Total 200 ml # Bowel Movements 100 Laboratory Tests 11/25/17 04:30: White Blood Count 28.4*H, Red Blood Count 2.89L, Hemoglobin 9.9L, Hematocrit 29.1L, Mean Corpuscular Volume 101H, Mean Corpuscular Hemoglobin 34.1H, Mean Corpuscular Hemoglobin Concent 33.8, Red Cell Distribution Width 13.1, Platelet Count 212, Mean Platelet Volume 7.1, Neutrophils (%) (Auto) , Lymphocytes (%) ( Auto) , Monocytes (%) (Auto) , Eosinophils (%) (Auto) , Basophils (%) (Auto) , Differential Total Cells Counted 100, Neutrophils % (Manual) 94H, Lymphocytes % (Manual) 3L, Monocytes % (Manual) 3, Eosinophils % (Manual) 0, Basophils % ( Manual) 0, Band Neutrophils 0, Toxic Granulation 1+, Platelet Estimate Adequate , Platelet Morphology Normal, Polychromasia 1+, Hypochromasia 1+, Macrocytosis 1 +, Sodium Level 147H, Potassium Level 4.3, Chloride Level 110H, Carbon Dioxide Level 30, Anion Gap 8, Blood Urea Nitrogen 30H, Creatinine 1.2, Estimat Glomerular Filtration Rate > 60, Glucose Level 95, Calcium Level 8.3L, Pro-B- Type Natriuretic Peptide [id number] 11/25/17 10:10: Urine Color Pale yellow, Urine Appearance Clear, Urine pH 5, Urine Specific [place] 1.020, Urine Protein 2+H, Urine Glucose (UA) 1+H, Urine Ketones 2+H, Urine Occult Blood 3+H, Urine Nitrite Negative, Urine Bilirubin Negative, Urine Urobilinogen Normal, Urine Leukocyte Esterase Negative, Urine RBC 2-4H, Urine WBC 0-2, Urine Squamous Epithelial Cells Occasional, Urine Amorphous Sediment FewH, Urine Bacteria Occasional Height (Feet): 5 Height (Inches): 9.00 Weight (Pounds): 210 EENT: other - periorb edema Neck: normal alignment Cardiovascular: regular rhythm, tachycardia Respiratory/Chest: rhonchi - bilaterally Abdomen: non tender Extremities: moderate edema Neurologic: unresponsive VLADIMIR KEYS Nov 25, 2017 15:15
[2017-11-25] MEDS: Morphine Sulfate 2mg/ml Inj IVP PRN (17:22)
--- NOTE | 2017-11-25 23:05 | Consultation ---
DATE OF CONSULTATION: 11/25/2017 PULMONARY CRITICAL CARE CONSULTATION CONSULTING PHYSICIAN: Yu Cobb M.D. ATTENDING PHYSICIAN: Leonardo Flor M.D. REASON FOR CONSULTATION: Ventilator-dependent respiratory failure. HISTORY OF PRESENT ILLNESS: The patient was admitted on 11/17/2017 after a suspected Seroquel overdose. He was initially found with Kwame Coma Scale of 3. He was subsequently intubated and is in moderate distress on a ventilator. An EEG has been performed showing diffuse slowing, no seizure foci. CT of the head with subacute lacunar infarcts in the right lentiform nucleus and bilateral internal capsule. SOCIAL HISTORY: Unavailable. REVIEW OF SYSTEMS: Unavailable. MEDICATIONS: Prehospital and current medications reviewed as available and current medications by dose, frequency, and route. FAMILY HISTORY: Unavailable. PHYSICAL EXAMINATION: GENERAL: At the time of my exam, he is in mild respiratory distress, obtunded, on a ventilator, does not follow commands. HEENT: Normocephalic, atraumatic. Orally intubated. LUNGS: With bilateral rhonchi. HEART: Regular. Tachycardic. ABDOMEN: Soft, nontender. EXTREMITIES: No edema. NEUROLOGIC: Does not follow commands. No spontaneous movement. LABORATORY VALUES: His white count is 28.4, hemoglobin 9.9, platelets are 101,000. His sodium is 142, potassium 4.3, chloride 110, bicarbonate 30, BUN 30, creatinine 1.2. MPA is 21,616. Glucose is 95. Most recent ABG was pH 7.4, pCO2 53, and pO2 39 was stated. His last chest x-ray was on 11/21/2017, which showed bilateral pulmonary infiltrates. Head CT on 11/20/2017, with bilateral internal capsule lacunar infarcts as well as old lacunar infarcts of posterior aspect of the right lentiform nucleus. EEG with diffuse slowing but no epileptiform activity. Cultures are positive for Staph aureus in his sputum. ASSESSMENT AND PLAN: 1. Multiple cerebrovascular accidents. 2. Staphylococcus aureus pneumonia, suspected aspiration. 3. Anoxic encephalopathy. 4. Drug overdose. 5. Ventilator-dependent respiratory failure. 6. Alcohol abuse. PLAN: No family at the bedside at this time. I will discuss goals of cares with primary physician and family. Neurologic prognosis has been deemed dismal. Supportive measures at this time. [facility] has been notified in the event that the patient is terminally extubated. DVT prophylaxis and antibiotics for now. We will continue to follow the patient. CRITICAL CARE TIME: Greater than 35 minutes of critical care time spent reviewing medical records, discussing with the nursing staff, reviewing his imaging studies and laboratories as well as the medical record for the days prior to the consult. Yu Cobb D.O. DR: Jenna JOB#: [id number] CC:
--- NOTE | 2017-11-25 23:05 | Progress Note ---
DATE: 11/24/2017 INTERNAL MEDICINE PROGRESS NOTE SUBJECTIVE: The patient's mother is at bedside and the case was reviewed. The patient's respiratory parameters are deteriorating further. He is on PEEP of 10, 100% FiO2, and saturating poorly with high respiratory rate. Adjustments were made in the vent setting. The patient remains without interaction. Eyes are open, but no meaningful contact. OBJECTIVE: VITAL SIGNS: Temperature 101 degrees max, blood pressure 166/98, heart rate 140, and respiratory rate 35. LUNGS: Bilateral breath sounds. Scattered rales. HEART: Regular rhythm with rapid rate. Normal S1 and S2. ABDOMEN: Soft. EXTREMITIES: Trace edema. NEUROLOGIC: Neurologic status remains poor. IMPRESSION: 1. Anoxic encephalopathy. 2. Respiratory failure. 3. Acute respiratory distress syndrome. 4. Aspiration and Methicillin-resistant Staphylococcus aureus pneumonia. 5. Secondary sinus tachycardia. 6. Hypoxia. PLAN: 1. Antimicrobials. 2. Ventilator support, adjust settings. 3. Anxiolytics and analgesics. 4. Add beta-yomaira for blood pressure and rate control. 5. Bioethics meeting to discuss long-term management. Leonardo Flor M.D. DR: DARREN JOB#: [id number] CC:
[2017-11-26] VITALS (23 sets, daily range): BP systolic 162–187; BP diastolic 86–105
[2017-11-26] MEDS: Cefepime HCl 1 GM in NS 55 ML IVPB SCH ×3 (02:51→18:11)
[2017-11-26] MEDS: metroNIDAZOLE 500mg tab NG SCH ×3 (05:59→21:29)
[2017-11-26] MEDS: levETIRAcetam 1,000mg/NS100ml 100 ML IVPB SCH ×3 (05:59→21:30)
--- NOTE | 2017-11-26 06:00 | Progress Note ---
DATE: 11/25/2017 INTERNAL MEDICINE PROGRESS NOTE SUBJECTIVE: Family meeting was performed today. The patient present with myself, the patient's father, the patient's mother, and the patient's brother. Family members are considering withdrawal of support and comfort care. Bioethics meeting planned tomorrow. The patient continues to require 100% FiO2. He is orally intubated, mechanically ventilated, and remains without meaningful neurologic response. OBJECTIVE: VITAL SIGNS: Blood pressure 162/92, heart rate 122, and respiratory rate 26. LUNGS: Bilateral rales. HEART: Regular rhythm. Rapid rate. Normal S1 and S2. ABDOMEN: Soft. EXTREMITIES: No edema. LABORATORY AND DIAGNOSTIC DATA: Chest x-ray reveals worsening pulmonary infiltrate. White count 28 and hemoglobin 10. Sodium 147, BUN 30, and creatinine 1.2. IMPRESSION: 1. Aspiration pneumonia. 2. Staphylococcus aureus in the sputum. 3. Worsening leukocytosis. 4. Probable acute respiratory distress syndrome. 5. Anoxic encephalopathy. 6. Respiratory failure. 7. Hypertension. PLAN: Antimicrobials broadened per Infectious Disease biometrics consultant. Full ventilator support. High oxygen delivery with PEEP. Antihypertensives added. Await bioethics discussion. We will try diuresis. Leonardo Flor M.D. DR: Yaquelin JOB#: [id number] CC:
[2017-11-26 06:13] LABS: HEMATOCRIT 28.8 % (42.0-52.0); HEMOGLOBIN 9.5 G/DL (14.2-18.0); MEAN CORPUSCULAR VOLUME 103 FL (80-99); PLATELET COUNT 198 K/UL (150-450); RED BLOOD COUNT 2.81 M/UL (4.70-6.10)
[2017-11-26 06:21] LABS: ANION GAP 4 mmol/L (5-15); BLOOD UREA NITROGEN 27 mg/dL (7-18); CALCIUM 8.4 MG/DL (8.5-10.1); CARBON DIOXIDE 35 MMOL/L (21-32); CHLORIDE 112 MMOL/L (98-107); CREATININE 1.1 MG/DL (0.55-1.30); POTASSIUM 4.4 MMOL/L (3.5-5.1); SODIUM 151 MMOL/L (136-145)
[2017-11-26 06:29] LABS: WHITE BLOOD COUNT 32.5 K/UL (4.8-10.8)
[2017-11-26 07:18] LABS: ALANINE AMINOTRANSFERASE 58 U/L (12-78); ALBUMIN 1.6 G/DL (3.4-5.0); ALKALINE PHOSPHATASE 123 U/L (46-116); ASPARTATE AMINO TRANSFERASE 31 U/L (15-37); BILIRUBIN,DIRECT < 0.1 MG/DL (0.0-0.3); BILIRUBIN,TOTAL 0.3 MG/DL (0.2-1.0)
--- NOTE | 2017-11-26 08:57 | Infectious Diseases Prog Note ---
Assessment/Plan Assessment/Plan A; sepsis/SIRS with fever & Leukocytosis Aspiration Pneumonia, MSSA in sputum Acute renal failure improving Hypercapnic respiratory failure Anoxic encephalopathy Drug overdose Rhabdomyolysis Diarrhea , C. difficile negative P; Continue Cefepime, and Flagyl poor prognosis, waiting for ethic committee decision Subjective ROS Limited/Unobtainable: Yes Allergies: Coded Allergies: SULFA (SULFONAMIDE ANTIBIOTICS) (Verified Allergy, Unknown, 11/18/17) per family Objective Vital Signs Last 24 Hour Vital Signs Date Time Temp Pulse Resp B/P (MAP) Pulse Ox O2 Delivery O2 Flow Rate FiO2 11/26/17 08:00 100 51 181/95 98 11/26/17 08:00 100 11/26/17 07:00 100 55 181/95 97 11/26/17 06:52 131 26 100 11/26/17 06:00 125 26 183/99 96 Mechanical Ventilator 100 11/26/17 05:43 132 31 100 11/26/17 05:00 125 28 182/100 100 Mechanical Ventilator 100 11/26/17 04:00 122 11/26/17 04:00 100 11/26/17 04:00 99.2 122 24 167/86 96 Mechanical Ventilator 100 11/26/17 03:20 130 29 100 11/26/17 03:00 123 27 180/100 93 Mechanical Ventilator 100 11/26/17 02:00 123 29 187/103 94 Mechanical Ventilator 100 11/26/17 01:52 122 28 100 11/26/17 01:36 122 28 100 11/26/17 01:00 122 31 175/105 100 Mechanical Ventilator 100 11/26/17 00:35 115 163/93 11/26/17 00:00 118 11/26/17 00:00 100 11/26/17 00:00 99.3 118 28 162/93 93 Mechanical Ventilator 100 11/25/17 23:00 117 22 168/93 93 Mechanical Ventilator 100 11/25/17 22:58 119 28 100 11/25/17 22:00 115 24 151/94 93 Mechanical Ventilator 100 11/25/17 21:12 124 31 100 11/25/17 21:00 122 26 162/92 92 Mechanical Ventilator 100 11/25/17 20:51 118 162/94 11/25/17 20:00 99.6 125 24 162/94 91 Mechanical Ventilator 100 2/4/18 20:00 100 11/25/17 20:00 125 11/25/17 19:04 126 23 169/104 95 Mechanical Ventilator 100 11/25/17 18:54 128 29 100 11/25/17 18:00 125 25 162/102 98 Mechanical Ventilator 100 11/25/17 17:52 99.4 11/25/17 17:22 164/95 11/25/17 17:14 127 30 100 11/25/17 17:00 120 26 160/99 97 Mechanical Ventilator 100 11/25/17 16:00 100 11/25/17 16:00 121 11/25/17 16:00 99.4 122 24 164/95 96 Mechanical Ventilator 100 11/25/17 15:09 128 27 100 11/25/17 15:00 125 25 166/101 96 Mechanical Ventilator 100 11/25/17 14:00 128 22 162/98 96 Mechanical Ventilator 100 11/25/17 13:12 124 31 100 11/25/17 13:00 121 25 165/99 96 Mechanical Ventilator 100 11/25/17 12:00 100 11/25/17 12:00 100.0 125 24 171/103 96 Mechanical Ventilator 100 11/25/17 12:00 128 11/25/17 11:00 120 25 169/100 96 Mechanical Ventilator 100 11/25/17 10:45 130 29 100 11/25/17 10:00 124 22 166/101 96 Mechanical Ventilator 100 11/25/17 09:21 125 33 100 11/25/17 09:03 135 177/108 11/25/17 09:00 130 27 165/95 95 Mechanical Ventilator 100 Height (Feet): 5 Height (Inches): 9.00 Weight (Pounds): 210 HEENT: other - orally intubated Respiratory/Chest: lungs clear, respiratory distress, other - on ventilator Abdomen: soft, non tender, other - orogastric tube Extremities: other - edema of hands Neurologic/Psychiatric: other - comatose, myocolonus seizure Laboratory Tests Test 11/25/17 10:10 11/26/17 05:00 Urine Color Pale yellow Urine Appearance Clear Urine pH 5 (4.5-8.0) Urine Specific [place] 1.020 (1.005-1.035) Urine Protein 2+ (NEGATIVE) H Urine Glucose (UA) 1+ (NEGATIVE) H Urine Ketones 2+ (NEGATIVE) H Urine Occult Blood 3+ (NEGATIVE) H Urine Nitrite Negative (NEGATIVE) Urine Bilirubin Negative (NEGATIVE) Urine Urobilinogen Normal MG/DL (0.0-1.0) Urine Leukocyte Esterase Negative (NEGATIVE) Urine RBC 2-4 /HPF (0 - 0) H Urine WBC 0-2 /HPF (0 - 0) Urine Squamous Epithelial Cells Occasional /LPF Urine Amorphous Sediment Few /LPF (NONE) H Urine Bacteria Occasional /HPF (NONE) White Blood Count 32.5 K/UL (4.8-10.8) *H Red Blood Count 2.81 M/UL (4.70-6.10) L Hemoglobin 9.5 G/DL (14.2-18.0) L Hematocrit 28.8 % (42.0-52.0) L Mean Corpuscular Volume 103 FL (80-99) H Mean Corpuscular Hemoglobin 33.9 PG (27.0-31.0) H Mean Corpuscular Hemoglobin Concent 33.1 G/DL (32.0-36.0) Red Cell Distribution Width 14.0 % (11.6-14.8) Platelet Count 198 K/UL (150-450) Mean Platelet Volume 6.8 FL (6.5-10.1) Neutrophils (%) (Auto) % (45.0-75.0) Lymphocytes (%) (Auto) % (20.0-45.0) Monocytes (%) (Auto) % (1.0-10.0) Eosinophils (%) (Auto) % (0.0-3.0) Basophils (%) (Auto) % (0.0-2.0) Neutrophils % (Manual) Pending Lymphocytes % (Manual) Pending Platelet Estimate Pending Platelet Morphology Pending Sodium Level 151 MMOL/L (136-145) H Potassium Level 4.4 MMOL/L (3.5-5.1) Chloride Level 112 MMOL/L (98-107) H Carbon Dioxide Level 35 MMOL/L (21-32) H Anion Gap 4 mmol/L (5-15) L Blood Urea Nitrogen 27 mg/dL (7-18) H Creatinine 1.1 MG/DL (0.55-1.30) Estimat Glomerular Filtration Rate > 60 mL/min (>60) Glucose Level 122 MG/DL (74-106) H Calcium Level 8.4 MG/DL (8.5-10.1) L Total Bilirubin 0.3 MG/DL (0.2-1.0) Direct Bilirubin < 0.1 MG/DL (0.0-0.3) Aspartate Amino Transf (AST/SGOT) 31 U/L (15-37) Alanine Aminotransferase (ALT/SGPT) 58 U/L (12-78) Alkaline Phosphatase 123 U/L (46-116) H Total Protein 6.3 G/DL (6.4-8.2) L Albumin 1.6 G/DL (3.4-5.0) L Current Medications Medications (Trade) Dose Ordered Sig/Nakita Route PRN Reason Start Time Stop Time Status Last Admin Dose Admin Acetaminophen (Tylenol) 650 mg Q4HR PRN NG For Pain 11/23/17 20:45 12/23/17 20:44 11/24/17 01:36 Amlodipine Besylate (Norvasc) 5 mg DAILY NG 11/26/17 00:00 12/26/17 00:00 11/26/17 00:35 Cefepime HCl 1 gm/ Sodium Chloride 55 ml @ 110 mls/hr Q8H IVPB 11/24/17 10:00 12/01/17 09:59 11/26/17 02:51 Clonidine HCl (Catapres Tab) 0.1 mg Q4H PRN ORAL SBP > 160 11/24/17 10:00 12/24/17 09:59 11/25/17 17:22 Folic Acid 1 mg/ Magnesium Sulfate 2000 mg/ Multivitamins 10 ml/Sodium Chloride 1,014.2 ml @ 125 mls/ hr Q24H IV 11/18/17 14:00 12/18/17 13:59 11/25/17 14:29 Levetiracetam 100 ml @ 400 mls/hr EVERY 8 HOURS IVPB 11/18/17 14:00 12/18/17 13:59 11/26/17 05:59 Lorazepam (Ativan 2mg/ml 1ml) 1 mg Q4H PRN IV For Anxiety 11/22/17 18:30 11/29/17 18:29 11/24/17 03:35 Metoprolol Tartrate (Lopressor) 50 mg Q12HR NG 11/24/17 21:00 12/24/17 20:59 2/4/18 20:51 Metronidazole (Flagyl) 500 mg Q8HR NG 11/25/17 10:00 12/02/17 09:59 11/26/17 05:59 Morphine Sulfate (Morphine Sulfate) 2 mg Q4H PRN IVP Pain 4-10 11/22/17 18:30 11/29/17 18:29 11/25/17 17:22 Pantoprazole (Protonix) 40 mg DAILY IVP 11/18/17 09:00 12/18/17 08:59 11/25/17 09:03 Sodium 1,000 ml @ 40 mls/hr Q24H IV 11/25/17 15:30 12/25/17 15:29 11/25/17 15:30 Thiamine HCl 100 mg/Dextrose 56 ml @ 112 mls/hr Q24H IVPB 11/18/17 14:00 12/18/17 13:59 11/25/17 14:28 LEBRON PALENCIA Nov 26, 2017 08:57
[2017-11-26] MEDS: Metoprolol Tartrate 50mg tab NG SCH ×2 (09:46→20:58)
[2017-11-26] MEDS: Acetaminophen 650mg/20.3ml NG PRN (09:47)
[2017-11-26] MEDS: Pantoprazole Inj IVP SCH (09:47)
--- NOTE | 2017-11-26 13:00 | Consultation ---
History of Present Illness General Chief Complaint: Altered Level of Consciousness Present Illness Allergies: Coded Allergies: SULFA (SULFONAMIDE ANTIBIOTICS) (Verified Allergy, Unknown, 11/18/17) per family Medication History Scheduled Bupropion Xl* (Bupropion Xl*), 300 MG ORAL Q24H, (Reported) Escitalopram Oxalate* (Lexapro*), 10 MG ORAL DAILY, (Reported) Quetiapine Fumarate* (Quetiapine Fumarate*), 400 MG ORAL DAILY, (Reported) Patient History Healthcare decision maker Giuliana Morales Resuscitation status Full Code Advanced Directive on File No Physical Exam Last 24 Hour Vital Signs Date Time Temp Pulse Resp B/P (MAP) Pulse Ox O2 Delivery O2 Flow Rate FiO2 11/26/17 12:00 131 42 170/91 99 11/26/17 11:00 121 39 173/89 99 11/26/17 10:30 133 43 100 11/26/17 10:17 99.2 11/26/17 10:00 100 43 177/97 99 11/26/17 09:47 100 178/92 11/26/17 09:46 100 178/92 11/26/17 09:00 100 43 178/92 99 11/26/17 08:55 140 42 100 11/26/17 08:00 139 11/26/17 08:00 100 51 181/95 98 11/26/17 08:00 100 11/26/17 07:00 100 55 181/95 97 11/26/17 06:52 131 26 100 11/26/17 06:00 125 26 183/99 96 Mechanical Ventilator 100 11/26/17 05:43 132 31 100 11/26/17 05:00 125 28 182/100 100 Mechanical Ventilator 100 11/26/17 04:00 122 11/26/17 04:00 100 11/26/17 04:00 99.2 122 24 167/86 96 Mechanical Ventilator 100 11/26/17 03:20 130 29 100 11/26/17 03:00 123 27 180/100 93 Mechanical Ventilator 100 11/26/17 02:00 123 29 187/103 94 Mechanical Ventilator 100 11/26/17 01:52 122 28 100 11/26/17 01:36 122 28 100 11/26/17 01:00 122 31 175/105 100 Mechanical Ventilator 100 11/26/17 00:35 115 163/93 11/26/17 00:00 118 2/5/18 00:00 100 11/26/17 00:00 99.3 118 28 162/93 93 Mechanical Ventilator 100 11/25/17 23:00 117 22 168/93 93 Mechanical Ventilator 100 11/25/17 22:58 119 28 100 11/25/17 22:00 115 24 151/94 93 Mechanical Ventilator 100 11/25/17 21:12 124 31 100 11/25/17 21:00 122 26 162/92 92 Mechanical Ventilator 100 11/25/17 20:51 118 162/94 11/25/17 20:00 99.6 125 24 162/94 91 Mechanical Ventilator 100 11/25/17 20:00 100 11/25/17 20:00 125 11/25/17 19:04 126 23 169/104 95 Mechanical Ventilator 100 11/25/17 18:54 128 29 100 11/25/17 18:00 125 25 162/102 98 Mechanical Ventilator 100 11/25/17 17:52 99.4 11/25/17 17:22 164/95 11/25/17 17:14 127 30 100 11/25/17 17:00 120 26 160/99 97 Mechanical Ventilator 100 11/25/17 16:00 100 11/25/17 16:00 121 11/25/17 16:00 99.4 122 24 164/95 96 Mechanical Ventilator 100 11/25/17 15:09 128 27 100 11/25/17 15:00 125 25 166/101 96 Mechanical Ventilator 100 11/25/17 14:00 128 22 162/98 96 Mechanical Ventilator 100 11/25/17 13:12 124 31 100 11/25/17 13:00 121 25 165/99 96 Mechanical Ventilator 100 Intake and Output 11/25/17 11/26/17 19:00 07:00 Intake Total 1901 ml 2264.2 ml Output Total 2110 ml 1670 ml Balance -209 ml 594.2 ml Free Water 150 ml IV Total 1061 ml 1274.2 ml Tube Feeding 840 ml 840 ml Output Urine Total 1860 ml 1670 ml Stool Total 250 ml Laboratory Tests Test 11/26/17 05:00 White Blood Count 32.5 K/UL (4.8-10.8) *H Red Blood Count 2.81 M/UL (4.70-6.10) L Hemoglobin 9.5 G/DL (14.2-18.0) L Hematocrit 28.8 % (42.0-52.0) L Mean Corpuscular Volume 103 FL (80-99) H Mean Corpuscular Hemoglobin 33.9 PG (27.0-31.0) H Mean Corpuscular Hemoglobin Concent 33.1 G/DL (32.0-36.0) Red Cell Distribution Width 14.0 % (11.6-14.8) Platelet Count 198 K/UL (150-450) Mean Platelet Volume 6.8 FL (6.5-10.1) Neutrophils (%) (Auto) % (45.0-75.0) Lymphocytes (%) (Auto) % (20.0-45.0) Monocytes (%) (Auto) % (1.0-10.0) Eosinophils (%) (Auto) % (0.0-3.0) Basophils (%) (Auto) % (0.0-2.0) Differential Total Cells Counted 100 Neutrophils % (Manual) 94 % (45-75) H Lymphocytes % (Manual) 2 % (20-45) L Monocytes % (Manual) 4 % (1-10) Eosinophils % (Manual) 0 % (0-3) Basophils % (Manual) 0 % (0-2) Band Neutrophils 0 % (0-8) Platelet Estimate Adequate Platelet Morphology Normal Sodium Level 151 MMOL/L (136-145) H Potassium Level 4.4 MMOL/L (3.5-5.1) Chloride Level 112 MMOL/L (98-107) H Carbon Dioxide Level 35 MMOL/L (21-32) H Anion Gap 4 mmol/L (5-15) L Blood Urea Nitrogen 27 mg/dL (7-18) H Creatinine 1.1 MG/DL (0.55-1.30) Estimat Glomerular Filtration Rate > 60 mL/min (>60) Glucose Level 122 MG/DL (74-106) H Calcium Level 8.4 MG/DL (8.5-10.1) L Total Bilirubin 0.3 MG/DL (0.2-1.0) Direct Bilirubin < 0.1 MG/DL (0.0-0.3) Aspartate Amino Transf (AST/SGOT) 31 U/L (15-37) Alanine Aminotransferase (ALT/SGPT) 58 U/L (12-78) Alkaline Phosphatase 123 U/L (46-116) H Total Protein 6.3 G/DL (6.4-8.2) L Albumin 1.6 G/DL (3.4-5.0) L Height (Feet): 5 Height (Inches): 9.00 Weight (Pounds): 210 Medications Current Medications Medications (Trade) Dose Ordered Sig/Nakita Route PRN Reason Start Time Stop Time Status Last Admin Dose Admin Acetaminophen (Tylenol) 650 mg Q4HR PRN NG For Pain 11/23/17 20:45 12/23/17 20:44 11/26/17 09:47 Amlodipine Besylate (Norvasc) 5 mg DAILY NG 11/26/17 00:00 12/26/17 00:00 11/26/17 09:47 Cefepime HCl 1 gm/ Sodium Chloride 55 ml @ 110 mls/hr Q8H IVPB 11/24/17 10:00 12/01/17 09:59 11/26/17 09:47 Clonidine HCl (Catapres Tab) 0.1 mg Q4H PRN ORAL SBP > 160 11/24/17 10:00 12/24/17 09:59 11/25/17 17:22 Folic Acid 1 mg/ Magnesium Sulfate 2000 mg/ Multivitamins 10 ml/Sodium Chloride 1,014.2 ml @ 125 mls/ hr Q24H IV 11/18/17 14:00 12/18/17 13:59 11/25/17 14:29 Levetiracetam 100 ml @ 400 mls/hr EVERY 8 HOURS IVPB 11/18/17 14:00 12/18/17 13:59 11/26/17 05:59 Lorazepam (Ativan 2mg/ml 1ml) 1 mg Q4H PRN IV For Anxiety 11/22/17 18:30 11/29/17 18:29 11/24/17 03:35 Metoprolol Tartrate (Lopressor) 50 mg Q12HR NG 11/24/17 21:00 12/24/17 20:59 11/26/17 09:46 Metronidazole (Flagyl) 500 mg Q8HR NG 11/25/17 10:00 12/02/17 09:59 11/26/17 05:59 Morphine Sulfate (Morphine Sulfate) 2 mg Q4H PRN IVP Pain 4-10 11/22/17 18:30 11/29/17 18:29 11/25/17 17:22 Pantoprazole (Protonix) 40 mg DAILY IVP 11/18/17 09:00 12/18/17 08:59 11/26/17 09:47 Sodium 1,000 ml @ 40 mls/hr Q24H IV 11/25/17 15:30 12/25/17 15:29 11/25/17 15:30 Thiamine HCl 100 mg/Dextrose 56 ml @ 112 mls/hr Q24H IVPB 11/18/17 14:00 12/18/17 13:59 11/25/17 14:28 Assessment/Plan Assessment/Plan Bioethics Committee Note: Today at 12:20 pm 11/26/17 a Bioethics Committee meeting was held in [facility] at the request of Dr. Flor; in attendance were committee members including Dr. John , Dr. Martinez, the hospital CNO as well as representatives from case management/ social work and the patient's parents and brother João. We discussed the patient's history and the events which led to this hospitalization. The family agrees with the patient's advance directive, expressing his wish for comfort measures only in the case of irreversible morbidity. After review and discussion, all members of the patient's family present recognize that further aggressive medical care is futile. They wish, as per the patient's advanced directive, for medical care to be refocussed on comfort measures. They wish that natural be allowed to occur without ventilatory support, lab testing, intravenous fluids, and [id number] medications. The family was given an opportunity to ask questions, and responses were given. The Bioethics Committee agrees with the family's wishes. Please contact us if you have any further issues. YAYA MARTINEZ Nov 26, 2017 13:00
--- NOTE | 2017-11-26 13:52 | Cardiology Report ---
APPROVED REPORT EKG Measurement Heart [id number] Sinus tachycardia Incomplete right bundle branch block Possible Lateral infarct, age undetermined Abnormal ECG
[2017-11-26] MEDS: 1/2NS w/KCl 20mEq 1000ml 1,000 ML IV SCH (15:00)
[2017-11-26] MEDS: Thiamine 100mg in D5W 55ml IVPB SCH (15:21)
[2017-11-26] MEDS: Folic Acid 1 MG, Magnesium Sulfate 2,000 MG, Multivitamin - 12 Injection 10 ML in NS w/... IV SCH (15:22)
--- NOTE | 2017-11-26 15:23 | Pulmonology Progress Note ---
Assessment/Plan Assessment/Plan resp failure, vent anoxic encephalopathy drug overdose pna staph aureus status epilipticus multiple lacunar cva vent adjusted when I visited this AM now Bioethics and family have agreed to terminal care agree prognosis grave Subjective ROS Limited/Unobtainable: Yes Allergies: Coded Allergies: SULFA (SULFONAMIDE ANTIBIOTICS) (Verified Allergy, Unknown, 11/18/17) per family Objective Last 24 Hour Vital Signs Date Time Temp Pulse Resp B/P (MAP) Pulse Ox O2 Delivery O2 Flow Rate FiO2 11/26/17 14:49 133 44 100 11/26/17 14:00 134 42 163/91 99 11/26/17 12:46 129 40 100 11/26/17 12:00 100 11/26/17 12:00 130 11/26/17 12:00 131 42 170/91 99 11/26/17 11:00 121 39 173/89 99 11/26/17 10:30 133 43 100 11/26/17 10:17 99.2 11/26/17 10:00 100 43 177/97 99 11/26/17 09:47 100 178/92 11/26/17 09:46 100 178/92 11/26/17 09:00 100 43 178/92 99 11/26/17 08:55 140 42 100 11/26/17 08:00 139 11/26/17 08:00 100 51 181/95 98 11/26/17 08:00 100 11/26/17 07:00 100 55 181/95 97 11/26/17 06:52 131 26 100 11/26/17 06:00 125 26 183/99 96 Mechanical Ventilator 100 11/26/17 05:43 132 31 100 11/26/17 05:00 125 28 182/100 100 Mechanical Ventilator 100 11/26/17 04:00 122 11/26/17 04:00 100 11/26/17 04:00 99.2 122 24 167/86 96 Mechanical Ventilator 100 11/26/17 03:20 130 29 100 11/26/17 03:00 123 27 180/100 93 Mechanical Ventilator 100 11/26/17 02:00 123 29 187/103 94 Mechanical Ventilator 100 11/26/17 01:52 122 28 100 11/26/17 01:36 122 28 100 11/26/17 01:00 122 31 175/105 100 Mechanical Ventilator 100 11/26/17 00:35 115 163/93 11/26/17 00:00 118 11/26/17 00:00 100 11/26/17 00:00 99.3 118 28 162/93 93 Mechanical Ventilator 100 11/25/17 23:00 117 22 168/93 93 Mechanical Ventilator 100 11/25/17 22:58 119 28 100 11/25/17 22:00 115 24 151/94 93 Mechanical Ventilator 100 11/25/17 21:12 124 31 100 11/25/17 21:00 122 26 162/92 92 Mechanical Ventilator 100 11/25/17 20:51 118 162/94 11/25/17 20:00 99.6 125 24 162/94 91 Mechanical Ventilator 100 11/25/17 20:00 100 11/25/17 20:00 125 11/25/17 19:04 126 23 169/104 95 Mechanical Ventilator 100 11/25/17 18:54 128 29 100 11/25/17 18:00 125 25 162/102 98 Mechanical Ventilator 100 11/25/17 17:52 99.4 11/25/17 17:22 164/95 11/25/17 17:14 127 30 100 11/25/17 17:00 120 26 160/99 97 Mechanical Ventilator 100 11/25/17 16:00 100 11/25/17 16:00 121 11/25/17 16:00 99.4 122 24 164/95 96 Mechanical Ventilator 100 Intake and Output 11/25/17 11/26/17 19:00 07:00 Intake Total 1901 ml 2264.2 ml Output Total 2110 ml 1670 ml Balance -209 ml 594.2 ml Free Water 150 ml IV Total 1061 ml 1274.2 ml Tube Feeding 840 ml 840 ml Output Urine Total 1860 ml 1670 ml Stool Total 250 ml General Appearance: other - resp distress HEENT: atraumatic Respiratory/Chest: crackles/rales, rhonchi Cardiovascular: regular rhythm, tachycardia Abdomen: soft, non tender Neurologic/Psychiatric: unresponsiveness Microbiology Date/Time Source Procedure Growth Status 11/25/17 10:10 Sputum Gram Stain - Final Resulted 11/25/17 10:10 Sputum Sputum Culture Pending Resulted Laboratory Tests 11/26/17 05:00: White Blood Count 32.5*H, Red Blood Count 2.81L, Hemoglobin 9.5L, Hematocrit 28.8L, Mean Corpuscular Volume 103H, Mean Corpuscular Hemoglobin 33.9H, Mean Corpuscular Hemoglobin Concent 33.1, Red Cell Distribution Width 14.0, Platelet Count 198, Mean Platelet Volume 6.8, Neutrophils (%) (Auto) , Lymphocytes (%) ( Auto) , Monocytes (%) (Auto) , Eosinophils (%) (Auto) , Basophils (%) (Auto) , Differential Total Cells Counted 100, Neutrophils % (Manual) 94H, Lymphocytes % (Manual) 2L, Monocytes % (Manual) 4, Eosinophils % (Manual) 0, Basophils % ( Manual) 0, Band Neutrophils 0, Platelet Estimate Adequate, Platelet Morphology Normal, Sodium Level 151H, Potassium Level 4.4, Chloride Level 112H, Carbon Dioxide Level 35H, Anion Gap 4L, Blood Urea Nitrogen 27H, Creatinine 1.1, Estimat Glomerular Filtration Rate > 60, Glucose Level 122H, Calcium Level 8.4L , Total Bilirubin 0.3, Direct Bilirubin < 0.1, Aspartate Amino Transf (AST/SGOT ) 31, Alanine Aminotransferase (ALT/SGPT) 58, Alkaline Phosphatase 123H, Total Protein 6.3L, Albumin 1.6L Current Medications Medications (Trade) Dose Ordered Sig/Nakita Route PRN Reason Start Time Stop Time Status Last Admin Dose Admin Acetaminophen (Tylenol) 650 mg Q4HR PRN NG For Pain 11/23/17 20:45 12/23/17 20:44 11/26/17 09:47 Amlodipine Besylate (Norvasc) 5 mg DAILY NG 11/26/17 00:00 12/26/17 00:00 11/26/17 09:47 Cefepime HCl 1 gm/ Sodium Chloride 55 ml @ 110 mls/hr Q8H IVPB 11/24/17 10:00 12/01/17 09:59 11/26/17 09:47 Clonidine HCl (Catapres Tab) 0.1 mg Q4H PRN ORAL SBP > 160 11/24/17 10:00 12/24/17 09:59 11/25/17 17:22 Folic Acid 1 mg/ Magnesium Sulfate 2000 mg/ Multivitamins 10 ml/Sodium Chloride 1,014.2 ml @ 125 mls/ hr Q24H IV 11/18/17 14:00 12/18/17 13:59 11/25/17 14:29 Levetiracetam 100 ml @ 400 mls/hr EVERY 8 HOURS IVPB 11/18/17 14:00 12/18/17 13:59 11/26/17 05:59 Lorazepam (Ativan 2mg/ml 1ml) 1 mg Q4H PRN IV For Anxiety 11/22/17 18:30 11/29/17 18:29 11/24/17 03:35 Metoprolol Tartrate (Lopressor) 50 mg Q12HR NG 11/24/17 21:00 12/24/17 20:59 11/26/17 09:46 Metronidazole (Flagyl) 500 mg Q8HR NG 11/25/17 10:00 12/02/17 09:59 11/26/17 05:59 Morphine Sulfate (Morphine Sulfate) 2 mg Q4H PRN IVP Pain 4-10 11/22/17 18:30 11/29/17 18:29 11/25/17 17:22 Pantoprazole (Protonix) 40 mg DAILY IVP 11/18/17 09:00 12/18/17 08:59 11/26/17 09:47 Sodium 1,000 ml @ 40 mls/hr Q24H IV 11/25/17 15:30 12/25/17 15:29 11/25/17 15:30 Thiamine HCl 100 mg/Dextrose 56 ml @ 112 mls/hr Q24H IVPB 11/18/17 14:00 12/18/17 13:59 11/25/17 14:28 LEX MCKEON Nov 26, 2017 15:23
[2017-11-26] MEDS ORDERED: PCA Morphine 1mg/ml 30 ML IV PRN (16:00)
--- NOTE | 2017-11-26 18:03 | Nephrology Progress Note ---
Assessment/Plan Problem List: (1) CVA (cerebral vascular accident) (2) Rhabdomyolysis (3) Lactic acid acidosis (4) NOLVIA (acute kidney injury) (5) Altered level of consciousness Plan creat and ck better reduce iv rate, kcl pulm care, hammer smith status poor, possible terminal extubation Subjective ROS Limited/Unobtainable: Yes Objective Objective Last 24 Hour Vital Signs Date Time Temp Pulse Resp B/P (MAP) Pulse Ox O2 Delivery O2 Flow Rate FiO2 11/26/17 17:01 130 42 100 11/26/17 17:00 129 43 164/92 100 11/26/17 16:00 133 11/26/17 16:00 129 35 164/97 98 11/26/17 16:00 100 11/26/17 15:00 98.9 128 38 163/92 97 11/26/17 14:49 133 44 100 11/26/17 14:00 134 42 163/91 99 11/26/17 12:46 129 40 100 11/26/17 12:00 100 11/26/17 12:00 130 11/26/17 12:00 131 42 170/91 99 11/26/17 11:00 121 39 173/89 99 11/26/17 10:30 133 43 100 11/26/17 10:17 99.2 11/26/17 10:00 100 43 177/97 99 11/26/17 09:47 100 178/92 11/26/17 09:46 100 178/92 11/26/17 09:00 100 43 178/92 99 11/26/17 08:55 140 42 100 11/26/17 08:00 139 11/26/17 08:00 100 51 181/95 98 11/26/17 08:00 100 11/26/17 07:00 100 55 181/95 97 11/26/17 06:52 131 26 100 11/26/17 06:00 125 26 183/99 96 Mechanical Ventilator 100 11/26/17 05:43 132 31 100 11/26/17 05:00 125 28 182/100 100 Mechanical Ventilator 100 11/26/17 04:00 122 11/26/17 04:00 100 11/26/17 04:00 99.2 122 24 167/86 96 Mechanical Ventilator 100 11/26/17 03:20 130 29 100 11/26/17 03:00 123 27 180/100 93 Mechanical Ventilator 100 11/26/17 02:00 123 29 187/103 94 Mechanical Ventilator 100 11/26/17 01:52 122 28 100 11/26/17 01:36 122 28 100 11/26/17 01:00 122 31 175/105 100 Mechanical Ventilator 100 11/26/17 00:35 115 163/93 11/26/17 00:00 118 11/26/17 00:00 100 11/26/17 00:00 99.3 118 28 162/93 93 Mechanical Ventilator 100 11/25/17 23:00 117 22 168/93 93 Mechanical Ventilator 100 11/25/17 22:58 119 28 100 11/25/17 22:00 115 24 151/94 93 Mechanical Ventilator 100 11/25/17 21:12 124 31 100 11/25/17 21:00 122 26 162/92 92 Mechanical Ventilator 100 11/25/17 20:51 118 162/94 11/25/17 20:00 99.6 125 24 162/94 91 Mechanical Ventilator 100 11/25/17 20:00 100 11/25/17 20:00 125 11/25/17 19:04 126 23 169/104 95 Mechanical Ventilator 100 11/25/17 18:54 128 29 100 Intake and Output 11/25/17 11/26/17 19:00 07:00 Intake Total 1901 ml 2264.2 ml Output Total 2110 ml 1670 ml Balance -209 ml 594.2 ml Free Water 150 ml IV Total 1061 ml 1274.2 ml Tube Feeding 840 ml 840 ml Output Urine Total 1860 ml 1670 ml Stool Total 250 ml Laboratory Tests 11/26/17 05:00: White Blood Count 32.5*H, Red Blood Count 2.81L, Hemoglobin 9.5L, Hematocrit 28.8L, Mean Corpuscular Volume 103H, Mean Corpuscular Hemoglobin 33.9H, Mean Corpuscular Hemoglobin Concent 33.1, Red Cell Distribution Width 14.0, Platelet Count 198, Mean Platelet Volume 6.8, Neutrophils (%) (Auto) , Lymphocytes (%) ( Auto) , Monocytes (%) (Auto) , Eosinophils (%) (Auto) , Basophils (%) (Auto) , Differential Total Cells Counted 100, Neutrophils % (Manual) 94H, Lymphocytes % (Manual) 2L, Monocytes % (Manual) 4, Eosinophils % (Manual) 0, Basophils % ( Manual) 0, Band Neutrophils 0, Platelet Estimate Adequate, Platelet Morphology Normal, Sodium Level 151H, Potassium Level 4.4, Chloride Level 112H, Carbon Dioxide Level 35H, Anion Gap 4L, Blood Urea Nitrogen 27H, Creatinine 1.1, Estimat Glomerular Filtration Rate > 60, Glucose Level 122H, Calcium Level 8.4L , Total Bilirubin 0.3, Direct Bilirubin < 0.1, Aspartate Amino Transf (AST/SGOT ) 31, Alanine Aminotransferase (ALT/SGPT) 58, Alkaline Phosphatase 123H, Total Protein 6.3L, Albumin 1.6L Height (Feet): 5 Height (Inches): 9.00 Weight (Pounds): 210 General Appearance: other - intubated Neck: normal alignment Cardiovascular: regular rhythm, tachycardia Respiratory/Chest: rhonchi - bilaterally Abdomen: soft, no organomegaly Extremities: moderate edema Neurologic: unresponsive VLADIMIR KEYS Nov 26, 2017 18:03
[2017-11-26] MEDS ORDERED: NS 275ml ONE (19:37)
[2017-11-26 23:24] LABS: MEAN CORPUSCULAR VOLUME 103 FL (80-99); PLATELET COUNT 173 K/UL (150-450); RED BLOOD COUNT 2.73 M/UL (4.70-6.10); RED CELL DISTRIBUTION WIDTH 14.1 % (11.6-14.8)
[2017-11-26 23:27] LABS: WHITE BLOOD COUNT 31.8 K/UL (4.8-10.8)
[2017-11-26 23:36] LABS: ANION GAP 2 mmol/L (5-15); BLOOD UREA NITROGEN 25 mg/dL (7-18); CALCIUM 8.1 MG/DL (8.5-10.1); CARBON DIOXIDE 36 MMOL/L (21-32); CHLORIDE 115 MMOL/L (98-107); CREATININE 1.1 MG/DL (0.55-1.30); POTASSIUM 4.3 MMOL/L (3.5-5.1); SODIUM 153 MMOL/L (136-145)
[2017-11-26 23:41] LABS: INR 1.2 (0.9-1.1)
[2017-11-26 23:49] LABS: ALANINE AMINOTRANSFERASE 43 U/L (12-78); ALBUMIN 1.5 G/DL (3.4-5.0); ALBUMIN/GLOBULIN RATIO 0.3 (1.0-2.7); ALKALINE PHOSPHATASE 101 U/L (46-116); AMYLASE 306 U/L (25-115); ASPARTATE AMINO TRANSFERASE 26 U/L (15-37); BILIRUBIN,TOTAL 0.3 MG/DL (0.2-1.0); GAMMA GLUTAMYL TRANSPEPTIDASE 89 U/L (5-85); PHOSPHORUS 2.7 MG/DL (2.5-4.9)
[2017-11-27] VITALS (18 sets, daily range): BP systolic 145–179; BP diastolic 83–101
[2017-11-27] MEDS: Cefepime HCl 1 GM in NS 55 ML IVPB SCH ×3 (02:39→18:00)
[2017-11-27] MEDS: levETIRAcetam 1,000mg/NS100ml 100 ML IVPB SCH ×2 (05:33→14:02)
[2017-11-27] MEDS: metroNIDAZOLE 500mg tab NG SCH ×2 (05:33→14:04)
[2017-11-27 05:46] LABS: HEMATOCRIT 26.3 % (42.0-52.0); HEMOGLOBIN 8.5 G/DL (14.2-18.0); MEAN CORPUSCULAR VOLUME 104 FL (80-99); PLATELET COUNT 187 K/UL (150-450); RED BLOOD COUNT 2.54 M/UL (4.70-6.10); RED CELL DISTRIBUTION WIDTH 14.1 % (11.6-14.8)
[2017-11-27 05:54] LABS: WHITE BLOOD COUNT 33.1 K/UL (4.8-10.8)
[2017-11-27 05:58] LABS: ALANINE AMINOTRANSFERASE 40 U/L (12-78); ALBUMIN 1.4 G/DL (3.4-5.0); ALBUMIN/GLOBULIN RATIO 0.3 (1.0-2.7); ALKALINE PHOSPHATASE 98 U/L (46-116); AMYLASE 286 U/L (25-115); ANION GAP 0 mmol/L (5-15); ASPARTATE AMINO TRANSFERASE 24 U/L (15-37); BILIRUBIN,TOTAL 0.3 MG/DL (0.2-1.0); BLOOD UREA NITROGEN 26 mg/dL (7-18); CALCIUM 8.1 MG/DL (8.5-10.1); CARBON DIOXIDE 37 MMOL/L (21-32); CHLORIDE 117 MMOL/L (98-107); GAMMA GLUTAMYL TRANSPEPTIDASE 82 U/L (5-85); POTASSIUM 4.5 MMOL/L (3.5-5.1); SODIUM 154 MMOL/L (136-145)
[2017-11-27 06:01] LABS: INR 1.2 (0.9-1.1)
[2017-11-27 06:52] LABS: APPEARANCE,URINE CLEAR
[2017-11-27 06:54] LABS: BILIRUBIN, URINE NEGATIVE (NEGATIVE); COLOR,URINE PALE YELLOW; GLUCOSE, URINE (UA) 2+ (NEGATIVE); KETONES,URINE NEGATIVE (NEGATIVE); LEUKOCYTE ESTERASE ,URINE NEGATIVE (NEGATIVE); NITRITE,URINE NEGATIVE (NEGATIVE); PH,URINE 5 (4.5-8.0); PROTEIN,URINE 2+ (NEGATIVE); UROBILINOGEN,URINE NORMAL MG/DL (0.0-1.0)
[2017-11-27] MEDS: Acetaminophen 650mg/20.3ml NG PRN (07:59)
[2017-11-27] MEDS: Pantoprazole Inj IVP SCH (08:58)
[2017-11-27] MEDS: Metoprolol Tartrate 50mg tab NG SCH (08:59)
--- NOTE | 2017-11-27 10:48 | Pulmonology Progress Note ---
Assessment/Plan Assessment/Plan resp failure, vent anoxic encephalopathy drug overdose pna staph aureus status epilipticus multiple lacunar cva better coordination w vent ABG noted disc w family at bedside agree w plan for terminal extubation, organ donation prognosis grave Subjective ROS Limited/Unobtainable: Yes Allergies: Coded Allergies: SULFA (SULFONAMIDE ANTIBIOTICS) (Verified Allergy, Unknown, 11/18/17) per family Objective Last 24 Hour Vital Signs Date Time Temp Pulse Resp B/P (MAP) Pulse Ox O2 Delivery O2 Flow Rate FiO2 11/27/17 10:00 121 32 159/93 100 11/27/17 09:13 146 36 100 11/27/17 09:00 115 36 159/85 100 11/27/17 08:59 140 145/83 11/27/17 08:59 140 145/83 11/27/17 08:29 100.2 11/27/17 08:00 100 11/27/17 08:00 146 11/27/17 08:00 147 35 145/83 98 11/27/17 07:25 148 34 100 11/27/17 07:00 103.0 145 36 172/89 98 11/27/17 06:00 143 31 163/92 98 11/27/17 05:13 144 37 100 11/27/17 05:00 143 33 175/87 98 11/27/17 04:00 140 11/27/17 04:00 98.9 140 41 166/89 99 11/27/17 04:00 100 11/27/17 03:40 137 38 100 11/27/17 03:00 136 39 172/94 98 11/27/17 02:00 126 28 179/98 98 11/27/17 01:22 125 39 100 11/27/17 01:00 127 36 169/89 100 11/27/17 00:00 97.8 125 31 178/101 99 11/27/17 00:00 100 11/27/17 00:00 125 11/26/17 23:27 125 37 100 11/26/17 23:00 124 43 173/96 100 11/26/17 22:00 135 44 176/97 99 11/26/17 21:15 127 44 100 11/26/17 21:00 135 44 176/97 99 11/26/17 20:58 133 187/96 11/26/17 20:00 100 11/26/17 20:00 135 11/26/17 20:00 135 44 187/96 99 11/26/17 19:00 130 35 167/90 99 11/26/17 19:00 137 43 100 11/26/17 18:00 99.5 121 37 175/95 98 11/26/17 17:01 130 42 100 11/26/17 17:00 129 43 164/92 100 11/26/17 16:00 133 11/26/17 16:00 129 35 164/97 98 11/26/17 16:00 100 11/26/17 15:00 98.9 128 38 163/92 97 11/26/17 14:49 133 44 100 11/26/17 14:00 134 42 163/91 99 11/26/17 12:46 129 40 100 11/26/17 12:00 100 11/26/17 12:00 130 11/26/17 12:00 131 42 170/91 99 11/26/17 11:00 121 39 173/89 99 Intake and Output 11/26/17 11/27/17 19:00 07:00 Intake Total 1646 ml 2159.2 ml Output Total 1680 ml 1180 ml Balance -34 ml 979.2 ml Free Water 100 ml IV Total 806 ml 1569.2 ml Tube Feeding 840 ml 490 ml Output Urine Total 1680 ml 1180 ml HEENT: normocephalic Respiratory/Chest: lungs clear Cardiovascular: tachycardia Abdomen: soft, non tender Microbiology Date/Time Source Procedure Growth Status 11/25/17 10:10 Sputum Gram Stain - Final Resulted 11/25/17 10:10 Sputum Sputum Culture - Preliminary NO GROWTH AFTER 24 HOURS Resulted Laboratory Tests 11/26/17 23:00: White Blood Count 31.8*H, Red Blood Count 2.73L, Hemoglobin 9.0L, Hematocrit 28.0L, Mean Corpuscular Volume 103H, Mean Corpuscular Hemoglobin 33.1H, Mean Corpuscular Hemoglobin Concent 32.2, Red Cell Distribution Width 14.1, Platelet Count 173, Mean Platelet Volume 7.2, Neutrophils (%) (Auto) , Lymphocytes (%) ( Auto) , Monocytes (%) (Auto) , Eosinophils (%) (Auto) , Basophils (%) (Auto) , Differential Total Cells Counted 100, Neutrophils % (Manual) 92H, Lymphocytes % (Manual) 4L, Monocytes % (Manual) 3, Eosinophils % (Manual) 0, Basophils % ( Manual) 0, Band Neutrophils 1, Platelet Estimate Adequate, Platelet Morphology Normal, Prothrombin Time 12.7H, Prothromb Time International Ratio 1.2H, Activated Partial Thromboplast Time 28, Sodium Level 153H, Potassium Level 4.3, Chloride Level 115H, Carbon Dioxide Level 36H, Anion Gap 2L, Blood Urea Nitrogen 25H, Creatinine 1.1, Estimat Glomerular Filtration Rate > 60, Glucose Level 166H, Calcium Level 8.1L, Phosphorus Level 2.7, Magnesium Level 2.4, Total Bilirubin 0.3, Gamma Glutamyl Transpeptidase 89H, Aspartate Amino Transf ( AST/SGOT) 26, Alanine Aminotransferase (ALT/SGPT) 43, Alkaline Phosphatase 101, Total Protein 6.0L, Albumin 1.5L, Globulin 4.5, Albumin/Globulin Ratio 0.3L, Amylase Level 306H, Lipase 1997H 11/27/17 04:50: White Blood Count 33.1*H, Red Blood Count 2.54L, Hemoglobin 8.5L, Hematocrit 26.3L, Mean Corpuscular Volume 104H, Mean Corpuscular Hemoglobin 33.4H, Mean Corpuscular Hemoglobin Concent 32.3, Red Cell Distribution Width 14.1, Platelet Count 187, Mean Platelet Volume 7.2, Neutrophils (%) (Auto) , Lymphocytes (%) ( Auto) , Monocytes (%) (Auto) , Eosinophils (%) (Auto) , Basophils (%) (Auto) , Differential Total Cells Counted 100, Neutrophils % (Manual) 95H, Lymphocytes % (Manual) 1L, Monocytes % (Manual) 4, Eosinophils % (Manual) 0, Basophils % ( Manual) 0, Band Neutrophils 0, Platelet Estimate Adequate, Platelet Morphology Normal, Prothrombin Time 12.6H, Prothromb Time International Ratio 1.2H, Activated Partial Thromboplast Time 28, Sodium Level 154H, Potassium Level 4.5, Chloride Level 117H, Carbon Dioxide Level 37H, Anion Gap 0L, Blood Urea Nitrogen 26H, Creatinine 1.0, Estimat Glomerular Filtration Rate > 60, Glucose Level 189H, Calcium Level 8.1L, Phosphorus Level 3.0, Magnesium Level 2.2, Total Bilirubin 0.3, Gamma Glutamyl Transpeptidase 82, Aspartate Amino Transf ( AST/SGOT) 24, Alanine Aminotransferase (ALT/SGPT) 40, Alkaline Phosphatase 98, Total Protein 6.0L, Albumin 1.4L, Globulin 4.6, Albumin/Globulin Ratio 0.3L, Amylase Level 286H, Lipase 1499H, Macrocytosis 1+ 11/27/17 05:00: Urine Color Pale yellow, Urine Appearance Clear, Urine pH 5, Urine Specific [place] 1.015, Urine Protein 2+H, Urine Glucose (UA) 2+H, Urine Ketones Negative , Urine Occult Blood 2+H, Urine Nitrite Negative, Urine Bilirubin Negative, Urine Urobilinogen Normal, Urine Leukocyte Esterase Negative, Urine RBC 2-4H, Urine WBC 0-2, Urine Squamous Epithelial Cells Occasional, Urine Uric Acid Crystals FewH, Urine Amorphous Sediment FewH, Urine Bacteria Occasional, Urine Mucus FewH 11/27/17 05:22: Arterial Blood pH 7.315L, Arterial Blood Partial Pressure CO2 70.0*H, Arterial Blood Partial Pressure O2 184.4H, Arterial Blood HCO3 34.9H, Arterial Blood Oxygen Saturation 98.7H, Arterial Blood Base Excess 7.3, Duane Test Positive Current Medications Medications (Trade) Dose Ordered Sig/[place] Route PRN Reason Start Time Stop Time Status Last Admin Dose Admin Acetaminophen (Tylenol) 650 mg Q4HR PRN NG For Pain 11/23/17 20:45 12/23/17 20:44 11/27/17 07:59 Amlodipine Besylate (Norvasc) 5 mg DAILY NG 11/26/17 00:00 12/26/17 00:00 11/27/17 08:59 Cefepime HCl 1 gm/ Sodium Chloride 55 ml @ 110 mls/hr Q8H IVPB 11/24/17 10:00 12/01/17 09:59 11/27/17 02:39 Clonidine HCl (Catapres Tab) 0.1 mg Q4H PRN ORAL SBP > 160 11/24/17 10:00 12/24/17 09:59 11/25/17 17:22 Folic Acid 1 mg/ Magnesium Sulfate 2000 mg/ Multivitamins 10 ml/Sodium Chloride 1,014.2 ml @ 125 mls/ hr Q24H IV 11/18/17 14:00 12/18/17 13:59 11/26/17 15:22 Levetiracetam 100 ml @ 400 mls/hr EVERY 8 HOURS IVPB 11/18/17 14:00 12/18/17 13:59 11/27/17 05:33 Lorazepam (Ativan 2mg/ml 1ml) 1 mg Q4H PRN IV For Anxiety 11/22/17 18:30 11/29/17 18:29 11/24/17 03:35 Metoprolol Tartrate (Lopressor) 50 mg Q12HR NG 11/24/17 21:00 12/24/17 20:59 11/27/17 08:59 Metronidazole (Flagyl) 500 mg Q8HR NG 11/25/17 10:00 12/02/17 09:59 11/27/17 05:33 Morphine Sulfate 30 ml @ 0 mls/hr [employer] MA[employer]GER Protocol PRN IV For Pain 11/26/17 16:00 11/28/17 15:59 UNV Morphine Sulfate (Morphine Sulfate) 2 mg Q4H PRN IVP Pain 4-10 11/22/17 18:30 11/29/17 18:29 11/25/17 17:22 Pantoprazole (Protonix) 40 mg DAILY IVP 11/18/17 09:00 12/18/17 08:59 11/27/17 08:58 Sodium 1,000 ml @ 40 mls/hr Q24H IV 11/25/17 15:30 12/25/17 15:29 11/26/17 15:00 Thiamine HCl 100 mg/Dextrose 56 ml @ 112 mls/hr Q24H IVPB 11/18/17 14:00 12/18/17 13:59 11/26/17 15:21 LEX MCKEON Nov 27, 2017 10:48
--- NOTE | 2017-11-27 10:49 | Diagnostic Imaging Report ---
Indication: Dyspnea Technique: One view of the chest Comparison: none Findings: Extensive bilateral interstitial and airspace disease is unchanged. Endotracheal tube has retracted somewhat, tip now projecting just below the thoracic inlet approximately 8 cm above the jordan. The heart size is normal. Stable satisfactory position of nasogastric tube Impression: Unchanged diffuse and extensive bilateral parenchymal infiltrates versus edema Interim slight retraction of endotracheal tube as described
--- NOTE | 2017-11-27 11:13 | Infectious Diseases Prog Note ---
Assessment/Plan Assessment/Plan antibiotics : cefepime, flagyl A 1. pneumonia with staph aureus 2. leucocytosis 3. renal failure improving 4. respiratory failure 5. suicidal attempt 6. bipolar disorder P 1. continue cefepime 2. will follow up cultures Subjective ROS Limited/Unobtainable: Yes Allergies: Coded Allergies: SULFA (SULFONAMIDE ANTIBIOTICS) (Verified Allergy, Unknown, 11/18/17) per family Objective Vital Signs Last 24 Hour Vital Signs Date Time Temp Pulse Resp B/P (MAP) Pulse Ox O2 Delivery O2 Flow Rate FiO2 11/27/17 10:56 120 33 85 11/27/17 10:00 121 32 159/93 100 11/27/17 09:13 146 36 100 11/27/17 09:00 115 36 159/85 100 11/27/17 08:59 140 145/83 11/27/17 08:59 140 145/83 11/27/17 08:29 100.2 11/27/17 08:00 100 11/27/17 08:00 146 11/27/17 08:00 147 35 145/83 98 11/27/17 07:25 148 34 100 11/27/17 07:00 103.0 145 36 172/89 98 11/27/17 06:00 143 31 163/92 98 11/27/17 05:13 144 37 100 11/27/17 05:00 143 33 175/87 98 11/27/17 04:00 140 11/27/17 04:00 98.9 140 41 166/89 99 11/27/17 04:00 100 11/27/17 03:40 137 38 100 11/27/17 03:00 136 39 172/94 98 11/27/17 02:00 126 28 179/98 98 11/27/17 01:22 125 39 100 11/27/17 01:00 127 36 169/89 100 11/27/17 00:00 97.8 125 31 178/101 99 11/27/17 00:00 100 11/27/17 00:00 125 11/26/17 23:27 125 37 100 11/26/17 23:00 124 43 173/96 100 11/26/17 22:00 135 44 176/97 99 11/26/17 21:15 127 44 100 11/26/17 21:00 135 44 176/97 99 11/26/17 20:58 133 187/96 11/26/17 20:00 100 11/26/17 20:00 135 11/26/17 20:00 135 44 187/96 99 11/26/17 19:00 130 35 167/90 99 11/26/17 19:00 137 43 100 11/26/17 18:00 99.5 121 37 175/95 98 11/26/17 17:01 130 42 100 11/26/17 17:00 129 43 164/92 100 11/26/17 16:00 133 11/26/17 16:00 129 35 164/97 98 11/26/17 16:00 100 11/26/17 15:00 98.9 128 38 163/92 97 11/26/17 14:49 133 44 100 11/26/17 14:00 134 42 163/91 99 11/26/17 12:46 129 40 100 11/26/17 12:00 100 11/26/17 12:00 130 11/26/17 12:00 131 42 170/91 99 Height (Feet): 5 Height (Inches): 9.00 Weight (Pounds): 210 HEENT: other - intubated Respiratory/Chest: lungs clear Cardiovascular: normal rate, regular rhythm, no gallop/murmur Abdomen: soft, non tender Extremities: other - + edema Microbiology Date/Time Source Procedure Growth Status 11/25/17 10:10 Sputum Gram Stain - Final Resulted 11/25/17 10:10 Sputum Sputum Culture - Preliminary NO GROWTH AFTER 24 HOURS Resulted Laboratory Tests Test 11/26/17 23:00 11/27/17 04:50 11/27/17 05:00 11/27/17 05:22 White Blood Count 31.8 K/UL (4.8-10.8) *H 33.1 K/UL (4.8-10.8) *H Red Blood Count 2.73 M/UL (4.70-6.10) L 2.54 M/UL (4.70-6.10) L Hemoglobin 9.0 G/DL (14.2-18.0) L 8.5 G/DL (14.2-18.0) L Hematocrit 28.0 % (42.0-52.0) L 26.3 % (42.0-52.0) L Mean Corpuscular Volume 103 FL (80-99) H 104 FL (80-99) H Mean Corpuscular Hemoglobin 33.1 PG (27.0-31.0) H 33.4 PG (27.0-31.0) H Mean Corpuscular Hemoglobin Concent 32.2 G/DL (32.0-36.0) 32.3 G/DL (32.0-36.0) Red Cell Distribution Width 14.1 % (11.6-14.8) 14.1 % (11.6-14.8) Platelet Count 173 K/UL (150-450) 187 K/UL (150-450) Mean Platelet Volume 7.2 FL (6.5-10.1) 7.2 FL (6.5-10.1) Neutrophils (%) (Auto) % (45.0-75.0) % (45.0-75.0) Lymphocytes (%) (Auto) % (20.0-45.0) % (20.0-45.0) Monocytes (%) (Auto) % (1.0-10.0) % (1.0-10.0) Eosinophils (%) (Auto) % (0.0-3.0) % (0.0-3.0) Basophils (%) (Auto) % (0.0-2.0) % (0.0-2.0) Differential Total Cells Counted 100 100 Neutrophils % (Manual) 92 % (45-75) H 95 % (45-75) H Lymphocytes % (Manual) 4 % (20-45) L 1 % (20-45) L Monocytes % (Manual) 3 % (1-10) 4 % (1-10) Eosinophils % (Manual) 0 % (0-3) 0 % (0-3) Basophils % (Manual) 0 % (0-2) 0 % (0-2) Band Neutrophils 1 % (0-8) 0 % (0-8) Platelet Estimate Adequate Adequate Platelet Morphology Normal Normal Prothrombin Time 12.7 SEC (9.30-11.50) H 12.6 SEC (9.30-11.50) H Prothromb Time International Ratio 1.2 (0.9-1.1) H 1.2 (0.9-1.1) H Activated Partial Thromboplast Time 28 SEC (23-33) 28 SEC (23-33) Sodium Level 153 MMOL/L (136-145) H 154 MMOL/L (136-145) H Potassium Level 4.3 MMOL/L (3.5-5.1) 4.5 MMOL/L (3.5-5.1) Chloride Level 115 MMOL/L (98-107) H 117 MMOL/L (98-107) H Carbon Dioxide Level 36 MMOL/L (21-32) H 37 MMOL/L (21-32) H Anion Gap 2 mmol/L (5-15) L 0 mmol/L (5-15) L Blood Urea Nitrogen 25 mg/dL (7-18) H 26 mg/dL (7-18) H Creatinine 1.1 MG/DL (0.55-1.30) 1.0 MG/DL (0.55-1.30) Estimat Glomerular Filtration Rate > 60 mL/min (>60) > 60 mL/min (>60) Glucose Level 166 MG/DL (74-106) H 189 MG/DL (74-106) H Calcium Level 8.1 MG/DL (8.5-10.1) L 8.1 MG/DL (8.5-10.1) L Phosphorus Level 2.7 MG/DL (2.5-4.9) 3.0 MG/DL (2.5-4.9) Magnesium Level 2.4 MG/DL (1.8-2.4) 2.2 MG/DL (1.8-2.4) Total Bilirubin 0.3 MG/DL (0.2-1.0) 0.3 MG/DL (0.2-1.0) Gamma Glutamyl Transpeptidase 89 U/L (5-85) H 82 U/L (5-85) Aspartate Amino Transf (AST/SGOT) 26 U/L (15-37) 24 U/L (15-37) Alanine Aminotransferase (ALT/SGPT) 43 U/L (12-78) 40 U/L (12-78) Alkaline Phosphatase 101 U/L (46-116) 98 U/L (46-116) Total Protein 6.0 G/DL (6.4-8.2) L 6.0 G/DL (6.4-8.2) L Albumin 1.5 G/DL (3.4-5.0) L 1.4 G/DL (3.4-5.0) L Globulin 4.5 g/dL 4.6 g/dL Albumin/Globulin Ratio 0.3 (1.0-2.7) L 0.3 (1.0-2.7) L Amylase Level 306 U/L (25-115) H 286 U/L (25-115) H Lipase 1997 U/L (73-393) H 1499 U/L (73-393) H Macrocytosis 1+ Urine Color Pale yellow Urine Appearance Clear Urine pH 5 (4.5-8.0) Urine Specific [place] 1.015 (1.005-1.035) Urine Protein 2+ (NEGATIVE) H Urine Glucose (UA) 2+ (NEGATIVE) H Urine Ketones Negative (NEGATIVE) Urine Occult Blood 2+ (NEGATIVE) H Urine Nitrite Negative (NEGATIVE) Urine Bilirubin Negative (NEGATIVE) Urine Urobilinogen Normal MG/DL (0.0-1.0) Urine Leukocyte Esterase Negative (NEGATIVE) Urine RBC 2-4 /HPF (0 - 0) H Urine WBC 0-2 /HPF (0 - 0) Urine Squamous Epithelial Cells Occasional /LPF Urine Uric Acid Crystals Few /LPF (NONE) H Urine Amorphous Sediment Few /LPF (NONE) H Urine Bacteria Occasional /HPF (NONE) Urine Mucus Few /LPF (NONE/OCC) H Arterial Blood pH 7.315 (7.350-7.450) Arterial Blood Partial Pressure CO2 70.0 mmHg (35.0-45.0) *H Arterial Blood Partial Pressure O2 184.4 mmHg (75.0-100.0) H Arterial Blood HCO3 34.9 mmol/L (22.0-26.0) H Arterial Blood Oxygen Saturation 98.7 % (92.0-98.0) H Arterial Blood Base Excess 7.3 Duane Test Positive Test 11/27/17 10:52 Arterial Blood pH 7.305 (7.350-7.450) Arterial Blood Partial Pressure CO2 81.9 mmHg (35.0-45.0) *H Arterial Blood Partial Pressure O2 236.0 mmHg (75.0-100.0) H Arterial Blood HCO3 39.8 mmol/L (22.0-26.0) H Arterial Blood Oxygen Saturation 98.8 % (92.0-98.0) H Arterial Blood Base Excess 11.2 Duane Test Positive ALEXIA PEREZ Nov 27, 2017 11:13
[2017-11-27 11:51] LABS: HEMATOCRIT 25.2 % (42.0-52.0); MEAN CORPUSCULAR VOLUME 103 FL (80-99); PLATELET COUNT 162 K/UL (150-450); RED BLOOD COUNT 2.46 M/UL (4.70-6.10); RED CELL DISTRIBUTION WIDTH 14.2 % (11.6-14.8)
[2017-11-27 11:53] LABS: WHITE BLOOD COUNT 30.3 K/UL (4.8-10.8)
[2017-11-27 11:57] LABS: INR 1.3 (0.9-1.1)
[2017-11-27 12:06] LABS: ALANINE AMINOTRANSFERASE 36 U/L (12-78); ALBUMIN 1.4 G/DL (3.4-5.0); ALBUMIN/GLOBULIN RATIO 0.3 (1.0-2.7); ALKALINE PHOSPHATASE 85 U/L (46-116); AMYLASE 364 U/L (25-115); ANION GAP 1 mmol/L (5-15); ASPARTATE AMINO TRANSFERASE 27 U/L (15-37); BILIRUBIN,TOTAL 0.4 MG/DL (0.2-1.0); BLOOD UREA NITROGEN 25 mg/dL (7-18); CALCIUM 7.9 MG/DL (8.5-10.1); CARBON DIOXIDE 39 MMOL/L (21-32); CHLORIDE 119 MMOL/L (98-107); GAMMA GLUTAMYL TRANSPEPTIDASE 91 U/L (5-85); PHOSPHORUS 3.1 MG/DL (2.5-4.9); POTASSIUM 4.6 MMOL/L (3.5-5.1); SODIUM 158 MMOL/L (136-145)
[2017-11-27 12:09] LABS: APPEARANCE,URINE SLIGHTLY CLOUDY; BILIRUBIN, URINE NEGATIVE (NEGATIVE); GLUCOSE, URINE (UA) NEGATIVE (NEGATIVE); KETONES,URINE NEGATIVE (NEGATIVE); LEUKOCYTE ESTERASE ,URINE 1+ (NEGATIVE); NITRITE,URINE NEGATIVE (NEGATIVE); PH,URINE 5 (4.5-8.0); PROTEIN,URINE 3+ (NEGATIVE); UROBILINOGEN,URINE NORMAL MG/DL (0.0-1.0)
[2017-11-27 12:19] LABS: COLOR,URINE YELLOW
--- NOTE | 2017-11-27 12:30 | Consultation ---
History of Present Illness General Date patient seen: Nov 27, 2017 Chief Complaint: Altered Level of Consciousness Present Illness HPI 32 year old unfortunate male who is in ICU. History of psychiatric illness. Found down at home next to two empty bottles of seroquel. unresponsive. taken to [facility] ED in critical condition and admitted to ICU. unfortunately no improvement and care deemed futile. Given patients wishes and families wishes patient to be organ donor. Surgery called to evaluate and assist with line placement and end of life care prior to procurement. Allergies: Coded Allergies: SULFA (SULFONAMIDE ANTIBIOTICS) (Verified Allergy, Unknown, 11/18/17) per family Medication History Scheduled Bupropion Xl* (Bupropion Xl*), 300 MG ORAL Q24H, (Reported) Escitalopram Oxalate* (Lexapro*), 10 MG ORAL DAILY, (Reported) Quetiapine Fumarate* (Quetiapine Fumarate*), 400 MG ORAL DAILY, (Reported) Patient History Limited by: medical condition History Provided By: Family Member, Medical Record, PMD Healthcare decision maker Giuliana Morales Resuscitation status Full Code Advanced Directive on File No Past Medical/Surgical History Past Medical/Surgical History: (1) Rhabdomyolysis (2) Lactic acid acidosis (3) Anticholinergic drug overdose (4) NOLVIA (acute kidney injury) (5) Status epilepticus (6) coma (7) CVA (cerebral vascular accident) (8) Altered level of consciousness Review of Systems ROS Narrative cannot obtain given patients medical condition Physical Exam General Appearance: other Lines, tubes and drains: peripheral HEENT: atraumatic, mucous membranes moist Neck: normal inspection Respiratory/Chest: lungs clear, on vent Cardiovascular/Chest: normal peripheral pulses, tachycardia Abdomen: soft, no organomegaly, no mass Genitourinary/Rectal: lozano Extremities: moderate edema Skin Exam: warm/dry Neurologic: unresponsiveness Last 24 Hour Vital Signs Date Time Temp Pulse Resp B/P (MAP) Pulse Ox O2 Delivery O2 Flow Rate FiO2 11/27/17 12:09 50 11/27/17 12:00 85 11/27/17 12:00 125 32 156/96 90 50 11/27/17 12:00 124 11/27/17 11:00 119 32 152/91 90 85 11/27/17 10:56 120 33 85 11/27/17 10:00 121 32 159/93 100 2/6/18 09:13 146 36 100 218 09:00 115 36 159/85 100 218 08:59 140 145/83 218 08:59 140 145/83 218 08:29 100.2 218 08:00 100 18 08:00 146 18 08:00 147 35 145/83 98 18 07:25 148 34 100 11/27/17 07:00 103.0 145 36 172/89 98 11/27/17 06:00 143 31 163/92 98 11/27/17 05:13 144 37 100 11/27/17 05:00 143 33 175/87 98 11/27/17 04:00 140 11/27/17 04:00 98.9 140 41 166/89 99 18 04:00 100 11/27/17 03:40 137 38 100 11/27/17 03:00 136 39 172/94 98 11/27/17 02:00 126 28 179/98 98 11/27/17 01:22 125 39 100 18 01:00 127 36 169/89 100 11/27/17 00:00 97.8 125 31 178/101 99 11/27/17 00:00 100 11/27/17 00:00 125 11/26/17 23:27 125 37 100 18 23:00 124 43 173/96 100 11/26/17 22:00 135 44 176/97 99 18 21:15 127 44 100 18 21:00 135 44 176/97 99 18 20:58 133 187/96 218 20:00 100 18 20:00 135 18 20:00 135 44 187/96 99 18 19:00 130 35 167/90 99 18 19:00 137 43 100 18 18:00 99.5 121 37 175/95 98 18 17:01 130 42 100 18 17:00 129 43 164/92 100 18 16:00 133 11/26/17 16:00 129 35 164/97 98 11/26/17 16:00 100 11/26/17 15:00 98.9 128 38 163/92 97 11/26/17 14:49 133 44 100 11/26/17 14:00 134 42 163/91 99 11/26/17 12:46 129 40 100 Intake and Output 11/26/17 11/27/17 19:00 07:00 Intake Total 1646 ml 2159.2 ml Output Total 1680 ml 1180 ml Balance -34 ml 979.2 ml Free Water 100 ml IV Total 806 ml 1569.2 ml Tube Feeding 840 ml 490 ml Output Urine Total 1680 ml 1180 ml Laboratory Tests Test 11/26/17 23:00 11/27/17 04:50 11/27/17 05:00 11/27/17 05:22 White Blood Count 31.8 K/UL (4.8-10.8) *H 33.1 K/UL (4.8-10.8) *H Red Blood Count 2.73 M/UL (4.70-6.10) L 2.54 M/UL (4.70-6.10) L Hemoglobin 9.0 G/DL (14.2-18.0) L 8.5 G/DL (14.2-18.0) L Hematocrit 28.0 % (42.0-52.0) L 26.3 % (42.0-52.0) L Mean Corpuscular Volume 103 FL (80-99) H 104 FL (80-99) H Mean Corpuscular Hemoglobin 33.1 PG (27.0-31.0) H 33.4 PG (27.0-31.0) H Mean Corpuscular Hemoglobin Concent 32.2 G/DL (32.0-36.0) 32.3 G/DL (32.0-36.0) Red Cell Distribution Width 14.1 % (11.6-14.8) 14.1 % (11.6-14.8) Platelet Count 173 K/UL (150-450) 187 K/UL (150-450) Mean Platelet Volume 7.2 FL (6.5-10.1) 7.2 FL (6.5-10.1) Neutrophils (%) (Auto) % (45.0-75.0) % (45.0-75.0) Lymphocytes (%) (Auto) % (20.0-45.0) % (20.0-45.0) Monocytes (%) (Auto) % (1.0-10.0) % (1.0-10.0) Eosinophils (%) (Auto) % (0.0-3.0) % (0.0-3.0) Basophils (%) (Auto) % (0.0-2.0) % (0.0-2.0) Differential Total Cells Counted 100 100 Neutrophils % (Manual) 92 % (45-75) H 95 % (45-75) H Lymphocytes % (Manual) 4 % (20-45) L 1 % (20-45) L Monocytes % (Manual) 3 % (1-10) 4 % (1-10) Eosinophils % (Manual) 0 % (0-3) 0 % (0-3) Basophils % (Manual) 0 % (0-2) 0 % (0-2) Band Neutrophils 1 % (0-8) 0 % (0-8) Platelet Estimate Adequate Adequate Platelet Morphology Normal Normal Prothrombin Time 12.7 SEC (9.30-11.50) H 12.6 SEC (9.30-11.50) H Prothromb Time International Ratio 1.2 (0.9-1.1) H 1.2 (0.9-1.1) H Activated Partial Thromboplast Time 28 SEC (23-33) 28 SEC (23-33) Sodium Level 153 MMOL/L (136-145) H 154 MMOL/L (136-145) H Potassium Level 4.3 MMOL/L (3.5-5.1) 4.5 MMOL/L (3.5-5.1) Chloride Level 115 MMOL/L (98-107) H 117 MMOL/L (98-107) H Carbon Dioxide Level 36 MMOL/L (21-32) H 37 MMOL/L (21-32) H Anion Gap 2 mmol/L (5-15) L 0 mmol/L (5-15) L Blood Urea Nitrogen 25 mg/dL (7-18) H 26 mg/dL (7-18) H Creatinine 1.1 MG/DL (0.55-1.30) 1.0 MG/DL (0.55-1.30) Estimat Glomerular Filtration Rate > 60 mL/min (>60) > 60 mL/min (>60) Glucose Level 166 MG/DL (74-106) H 189 MG/DL (74-106) H Calcium Level 8.1 MG/DL (8.5-10.1) L 8.1 MG/DL (8.5-10.1) L Phosphorus Level 2.7 MG/DL (2.5-4.9) 3.0 MG/DL (2.5-4.9) Magnesium Level 2.4 MG/DL (1.8-2.4) 2.2 MG/DL (1.8-2.4) Total Bilirubin 0.3 MG/DL (0.2-1.0) 0.3 MG/DL (0.2-1.0) Gamma Glutamyl Transpeptidase 89 U/L (5-85) H 82 U/L (5-85) Aspartate Amino Transf (AST/SGOT) 26 U/L (15-37) 24 U/L (15-37) Alanine Aminotransferase (ALT/SGPT) 43 U/L (12-78) 40 U/L (12-78) Alkaline Phosphatase 101 U/L (46-116) 98 U/L (46-116) Total Protein 6.0 G/DL (6.4-8.2) L 6.0 G/DL (6.4-8.2) L Albumin 1.5 G/DL (3.4-5.0) L 1.4 G/DL (3.4-5.0) L Globulin 4.5 g/dL 4.6 g/dL Albumin/Globulin Ratio 0.3 (1.0-2.7) L 0.3 (1.0-2.7) L Amylase Level 306 U/L (25-115) H 286 U/L (25-115) H Lipase 1997 U/L (73-393) H 1499 U/L (73-393) H Macrocytosis 1+ Urine Color Pale yellow Urine Appearance Clear Urine pH 5 (4.5-8.0) Urine Specific [place] 1.015 (1.005-1.035) Urine Protein 2+ (NEGATIVE) H Urine Glucose (UA) 2+ (NEGATIVE) H Urine Ketones Negative (NEGATIVE) Urine Occult Blood 2+ (NEGATIVE) H Urine Nitrite Negative (NEGATIVE) Urine Bilirubin Negative (NEGATIVE) Urine Urobilinogen Normal MG/DL (0.0-1.0) Urine Leukocyte Esterase Negative (NEGATIVE) Urine RBC 2-4 /HPF (0 - 0) H Urine WBC 0-2 /HPF (0 - 0) Urine Squamous Epithelial Cells Occasional /LPF Urine Uric Acid Crystals Few /LPF (NONE) H Urine Amorphous Sediment Few /LPF (NONE) H Urine Bacteria Occasional /HPF (NONE) Urine Mucus Few /LPF (NONE/OCC) H Arterial Blood pH 7.315 (7.350-7.450) Arterial Blood Partial Pressure CO2 70.0 mmHg (35.0-45.0) *H Arterial Blood Partial Pressure O2 184.4 mmHg (75.0-100.0) H Arterial Blood HCO3 34.9 mmol/L (22.0-26.0) H Arterial Blood Oxygen Saturation 98.7 % (92.0-98.0) H Arterial Blood Base Excess 7.3 Duane Test Positive Test 11/27/17 10:52 11/27/17 11:20 Arterial Blood pH 7.305 (7.350-7.450) Arterial Blood Partial Pressure CO2 81.9 mmHg (35.0-45.0) *H Arterial Blood Partial Pressure O2 236.0 mmHg (75.0-100.0) H Arterial Blood HCO3 39.8 mmol/L (22.0-26.0) H Arterial Blood Oxygen Saturation 98.8 % (92.0-98.0) H Arterial Blood Base Excess 11.2 Duane Test Positive White Blood Count 30.3 K/UL (4.8-10.8) *H Red Blood Count 2.46 M/UL (4.70-6.10) L Hemoglobin 8.0 G/DL (14.2-18.0) L Hematocrit 25.2 % (42.0-52.0) L Mean Corpuscular Volume 103 FL (80-99) H Mean Corpuscular Hemoglobin 32.7 PG (27.0-31.0) H Mean Corpuscular Hemoglobin Concent 31.9 G/DL (32.0-36.0) L Red Cell Distribution Width 14.2 % (11.6-14.8) Platelet Count 162 K/UL (150-450) Mean Platelet Volume 7.1 FL (6.5-10.1) Neutrophils (%) (Auto) % (45.0-75.0) Lymphocytes (%) (Auto) % (20.0-45.0) Monocytes (%) (Auto) % (1.0-10.0) Eosinophils (%) (Auto) % (0.0-3.0) Basophils (%) (Auto) % (0.0-2.0) Differential Total Cells Counted 100 Neutrophils % (Manual) 90 % (45-75) H Lymphocytes % (Manual) 6 % (20-45) L Monocytes % (Manual) 4 % (1-10) Eosinophils % (Manual) 0 % (0-3) Basophils % (Manual) 0 % (0-2) Band Neutrophils 0 % (0-8) Platelet Estimate Adequate Platelet Morphology Normal Hypochromasia 1+ Basophilic Stippling Occasional Anisocytosis 1+ Macrocytosis 1+ Prothrombin Time 13.7 SEC (9.30-11.50) H Prothromb Time International Ratio 1.3 (0.9-1.1) H Activated Partial Thromboplast Time 29 SEC (23-33) Urine Color Yellow Urine Appearance Slightly cloudy Urine pH 5 (4.5-8.0) Urine Specific [place] 1.015 (1.005-1.035) Urine Protein 3+ (NEGATIVE) H Urine Glucose (UA) Negative (NEGATIVE) Urine Ketones Negative (NEGATIVE) Urine Occult Blood 5+ (NEGATIVE) H Urine Nitrite Negative (NEGATIVE) Urine Bilirubin Negative (NEGATIVE) Urine Urobilinogen Normal MG/DL (0.0-1.0) Urine Leukocyte Esterase 1+ (NEGATIVE) H Urine RBC 2-4 /HPF (0 - 0) H Urine WBC 2-4 /HPF (0 - 0) Urine Squamous Epithelial Cells Occasional /LPF Urine Uric Acid Crystals Moderate /LPF (NONE) H Urine Amorphous Sediment Few /LPF (NONE) H Urine Bacteria Occasional /HPF (NONE) Urine Mucus Few /LPF (NONE/OCC) H Sodium Level 158 MMOL/L (136-145) H Potassium Level 4.6 MMOL/L (3.5-5.1) Chloride Level 119 MMOL/L (98-107) H Carbon Dioxide Level 39 MMOL/L (21-32) H Anion Gap 1 mmol/L (5-15) L Blood Urea Nitrogen 25 mg/dL (7-18) H Creatinine 1.0 MG/DL (0.55-1.30) Estimat Glomerular Filtration Rate > 60 mL/min (>60) Glucose Level 121 MG/DL (74-106) H Calcium Level 7.9 MG/DL (8.5-10.1) L Phosphorus Level 3.1 MG/DL (2.5-4.9) Magnesium Level 2.4 MG/DL (1.8-2.4) Total Bilirubin 0.4 MG/DL (0.2-1.0) Gamma Glutamyl Transpeptidase 91 U/L (5-85) H Aspartate Amino Transf (AST/SGOT) 27 U/L (15-37) Alanine Aminotransferase (ALT/SGPT) 36 U/L (12-78) Alkaline Phosphatase 85 U/L (46-116) Total Protein 5.5 G/DL (6.4-8.2) L Albumin 1.4 G/DL (3.4-5.0) L Globulin 4.1 g/dL Albumin/Globulin Ratio 0.3 (1.0-2.7) L Amylase Level 364 U/L (25-115) H Lipase 1951 U/L (73-393) H Height (Feet): 5 Height (Inches): 9.00 Weight (Pounds): 210 Medications Current Medications Medications (Trade) Dose Ordered Sig/Nakita Route PRN Reason Start Time Stop Time Status Last Admin Dose Admin Acetaminophen (Tylenol) 650 mg Q4HR PRN NG For Pain 11/23/17 20:45 12/23/17 20:44 11/27/17 07:59 Amlodipine Besylate (Norvasc) 5 mg DAILY NG 11/26/17 00:00 12/26/17 00:00 11/27/17 08:59 Cefepime HCl 1 gm/ Sodium Chloride 55 ml @ 110 mls/hr Q8H IVPB 11/24/17 10:00 12/01/17 09:59 11/27/17 10:50 Clonidine HCl (Catapres Tab) 0.1 mg Q4H PRN ORAL SBP > 160 11/24/17 10:00 12/24/17 09:59 11/25/17 17:22 Folic Acid 1 mg/ Magnesium Sulfate 2000 mg/ Multivitamins 10 ml/Sodium Chloride 1,014.2 ml @ 125 mls/ hr Q24H IV 11/18/17 14:00 12/18/17 13:59 11/26/17 15:22 Levetiracetam 100 ml @ 400 mls/hr EVERY 8 HOURS IVPB 11/18/17 14:00 12/18/17 13:59 11/27/17 05:33 Lorazepam (Ativan 2mg/ml 1ml) 1 mg Q4H PRN IV For Anxiety 11/22/17 18:30 11/29/17 18:29 11/24/17 03:35 Metoprolol Tartrate (Lopressor) 50 mg Q12HR NG 11/24/17 21:00 12/24/17 20:59 11/27/17 08:59 Metronidazole (Flagyl) 500 mg Q8HR NG 11/25/17 10:00 12/02/17 09:59 11/27/17 05:33 Morphine Sulfate 30 ml @ 0 mls/hr [employer] Protocol PRN IV For Pain 11/26/17 16:00 11/28/17 15:59 UNV Morphine Sulfate (Morphine Sulfate) 2 mg Q4H PRN IVP Pain 4-10 11/22/17 18:30 11/29/17 18:29 11/25/17 17:22 Pantoprazole (Protonix) 40 mg DAILY IVP 11/18/17 09:00 12/18/17 08:59 11/27/17 08:58 Sodium 1,000 ml @ 40 mls/hr Q24H IV 11/25/17 15:30 12/25/17 15:29 11/26/17 15:00 Thiamine HCl 100 mg/Dextrose 56 ml @ 112 mls/hr Q24H IVPB 11/18/17 14:00 12/18/17 13:59 11/26/17 15:21 Assessment/Plan Problem List: (1) coma Assessment & Plan: Very unfortunate circumstances. Family and from patients prior wishes to be organ donor if care futile. unfortunately seems that way. legacy of life available. plans for procurement soon. will proceed with arterial line placement at family and care groups request. may need central venous catheter. will be available to assist with keeping patient comfortable and dignity in these final steps of life. Status: unchanged Jace Haile Nov 27, 2017 12:30
--- NOTE | 2017-11-27 12:34 | Operative Note - PDOC ---
Operative Note Operative Note Date of Operation/Procedure: Nov 27, 2017 Pre-op Diagnosis: CVA, Coma, overdose Procedure: Right radial arterial line placement Post-op Diagnosis: same as pre-op Surgeon: ashley Anesthesia: other - patient sedated in ICU on vent Specimen: none Complications: none Condition: stable Estimated Blood Loss: minimal Drains: none Implant(s) used?: Yes - left radial a line Indications for Procedure 32M overdose, psych history, coma, possible organ procurement. needs arterial line for management and care. consent obtained. Description of Procedure right wrist prepped and draped in standard surgical fashion. time out taken. artery palpated. using a cook a line kit the finder needle was used to cannulate the right radial artery. upon cannulation a guide wire was placed without resistance and arterial line inserted over young without complication. line placed to monitors, cleaned, and dressings applied. line functional. no immediate complications with insertion. will monitor line Jace Haile Nov 27, 2017 12:33
[2017-11-27] MEDS: Morphine Sulfate 2mg/ml Inj IVP PRN (12:37)
--- NOTE | 2017-11-27 13:04 | Diagnostic Imaging Report ---
Indication: Abnormal renal function tests Technique: Beavers-scale and duplex images of the upper abdomen were obtained Comparison: none Findings: Gallbladder is unremarkable, without stones, wall thickening, nor pericholecystic fluid. It is incompletely distended. Common bile duct measures 6 mm in diameter. No intrahepatic biliary ductal dilatation. Liver demonstrates normal echogenicity, no focal abnormality. It is mildly enlarged Portal vein and hepatic veins are patent. Pancreas is unremarkable. Spleen is unremarkable. Left kidney measures 14.3 cm in length. Right kidney measures 12.3 cm length. Both kidneys demonstrate normal echogenicity. There is no hydronephrosis. No focal abnormality . Abdominal aorta is partially obscured by bowel gas, visualized portions are non-aneurysmal . Bilateral pleural effusions are incidentally noted Impression: No acute abnormality Equivocal mild hepatomegaly Negative for gallstones or dilated ducts Bilateral pleural effusions Note incomplete visualization of the abdominal aorta
[2017-11-27] MEDS ORDERED: NS Irrig 2000ml IRRIG ONE ×2 (14:30→19:58)
[2017-11-27] MEDS ORDERED: LR 1000ml ONE (14:30)
[2017-11-27] MEDS: Folic Acid 1 MG, Magnesium Sulfate 2,000 MG, Multivitamin - 12 Injection 10 ML in NS w/... IV SCH (14:36)
[2017-11-27] MEDS: Thiamine 100mg in D5W 55ml IVPB SCH (14:36)
[2017-11-27] MEDS: 1/2NS w/KCl 20mEq 1000ml 1,000 ML IV SCH (15:30)
--- NOTE | 2017-11-27 16:45 | Progress Note ---
DATE: 11/26/2017 INTERNAL MEDICINE PROGRESS NOTE SUBJECTIVE: The patient's condition is continued to be grave. He is on 100% oxygen by ventilator with 10 of PEEP. He is barely maintaining adequate saturations. He remains without any meaningful interaction. A Bioethics discussion today resulted in family decision for withdrawal of support and comfort care. Family members included mother, father, and brother. They have also decided to donate the patient's organs and Giovanny has been contacted and is involved with this process. In the interim, the patient will be kept on morphine drip for comfort and once organ donation is completed, the patient will be removed from ventilator support. Leonardo Flor M.D. DR: OMAR JOB#: [id number] CC:
[2017-11-27] MEDS ORDERED: PCA Morphine 1mg/ml 30 ML IV PRN (17:00)
[2017-11-27] MEDS ORDERED: Morphine Sulfate 10mg/ml Inj IVP PRN (17:00)
[2017-11-27] MEDS ORDERED: Heparin Sod 1000 units/ml 10ml IV ONE (17:00)
[2017-11-27] MEDS ORDERED: Morphine Sulfate 10mg/ml Inj IV PRN (17:00)
[2017-11-27 17:07] LABS: HEMATOCRIT 25.4 % (42.0-52.0); HEMOGLOBIN 8.2 G/DL (14.2-18.0); MEAN CORPUSCULAR VOLUME 103 FL (80-99); PLATELET COUNT 162 K/UL (150-450); RED BLOOD COUNT 2.47 M/UL (4.70-6.10); RED CELL DISTRIBUTION WIDTH 14.2 % (11.6-14.8)
[2017-11-27 17:09] LABS: WHITE BLOOD COUNT 32.6 K/UL (4.8-10.8)
[2017-11-27 17:17] LABS: INR 1.3 (0.9-1.1)
[2017-11-27 17:22] LABS: ALANINE AMINOTRANSFERASE 35 U/L (12-78); ALBUMIN 1.4 G/DL (3.4-5.0); ALBUMIN/GLOBULIN RATIO 0.3 (1.0-2.7); ALKALINE PHOSPHATASE 85 U/L (46-116); AMYLASE 361 U/L (25-115); ANION GAP 5 mmol/L (5-15); ASPARTATE AMINO TRANSFERASE 29 U/L (15-37); BILIRUBIN,TOTAL 0.4 MG/DL (0.2-1.0); BLOOD UREA NITROGEN 24 mg/dL (7-18); CALCIUM 8.1 MG/DL (8.5-10.1); CARBON DIOXIDE 37 MMOL/L (21-32); CHLORIDE 118 MMOL/L (98-107); CREATININE 0.9 MG/DL (0.55-1.30); GAMMA GLUTAMYL TRANSPEPTIDASE 71 U/L (5-85); POTASSIUM 4.3 MMOL/L (3.5-5.1); SODIUM 160 MMOL/L (136-145)
--- NOTE | 2017-11-27 17:45 | Operative Note - PDOC ---
Operative Note Operative Note Date of Operation/Procedure: Nov 27, 2017 Pre-op Diagnosis: CVA, Coma, overdose Procedure: Right central venous catheter insertion Post-op Diagnosis: same as pre-op Surgeon: ashley Anesthesia: local, other - patient sedated in ICU on vent Specimen: none Complications: none Condition: stable Estimated Blood Loss: minimal Drains: none Implant(s) used?: Yes - triple lumen central venous catheter Indications for Procedure 32M critically ill with peripheral IV access that requires central venous secure access for IV meds/interventions. family consented. teams aware. refer to prior notes for details. Description of Procedure The patient was lying in the supine position. All persons involved were shielded with hairnets, facemasks and sterile gowns. With sterile-gloved hands the [right / left] femoral area was thoroughly sponged with chlorhexidine and allowed to dry. The area was draped with the large disposable sterile field provided in the kit. The skin and subcutaneous tissues superficial to the right femoral vein was anesthetized. The femoral artery was palpated and avoided. A finder needle was advanced at a 45-degree angle toward the inguinal ligament until the syringe was seen to fill with blood. The needle was then held in place while the guide wire was advanced. The needle was then removed. A skin dilator was advanced over the guidewire and removed, then the triple-lumen catheter was advanced over the guide wire into proper position. The guide wire was removed and discarded. The ports were aspirated which showed good blood return indicating proper position into the vein and then carefully flushed with normal saline. The catheter was stabilized and sutured to the skin with 2-0 silk. A sterile bio-occlusive dressing was placed over the catheter, including the insertion site. The patient tolerated the procedure well. Jace Haile Nov 27, 2017 17:45
[2017-11-27 18:42] LABS: APPEARANCE,URINE CLEAR; BILIRUBIN, URINE NEGATIVE (NEGATIVE); COLOR,URINE PALE YELLOW; GLUCOSE, URINE (UA) NEGATIVE (NEGATIVE); KETONES,URINE NEGATIVE (NEGATIVE); LEUKOCYTE ESTERASE ,URINE 1+ (NEGATIVE); NITRITE,URINE NEGATIVE (NEGATIVE); PH,URINE 6 (4.5-8.0); PROTEIN,URINE 2+ (NEGATIVE); UROBILINOGEN,URINE NORMAL MG/DL (0.0-1.0)
[2017-11-27] MEDS ORDERED: Tubing IV Secondary IV ONE (19:29)
--- NOTE | 2017-11-27 19:31 | General Progress Note ---
Progress Note Progress Note Note: Patient transported from ICU to OR with monitoring, respiratory team, anesthesia team, nurses and myself. Uneventful transport and family close by. Transferred to Surgery table for planned extubation as per family wishes as patient did not want prolonged life support measures if prognosis poor. Family called into room as patient began to become bradycardic. Upon their arrival patient was extubated as per wishes. Patient remained fairly comfortable and soon after went into cardiac arrest. PEA then asystole. No spontaneous respirations. With dignity patient passed comfortably with family in room. No cardiac activity noted on exam, no respirations, monitors demonstrated above. Patient pronounced at 18:56 on 11/27/2017. Jace Haile Nov 27, 2017 19:31
[2017-11-27] MEDS ORDERED: NS Irrig 1000ml IRRIG ONE (19:58)
--- NOTE | 2017-11-28 07:40 | Anethesia Preoperative Eval ---
Anesthesia Pre-op PMH/ROS General Date of Evaluation: Nov 27, 2017 Time of Evaluation: 17:02 Anesthesiologist: Jefferson ASA Score: ASA 5 Mallampati Score Class I : Soft palate, uvula, fauces, pillars visible Class II: Soft palate, uvula, fauces visible Class III: Soft palate, base of uvula visible Class IV: Only hard plate visible Mallampati Classification: Class III Surgeon: Gume Diagnosis: Encephalopathy Surgical Procedure: Organ harvesting Anesthesia History: none Social History: alcohol use - h/o abuse Family History: no anesthesia problems Allergies: Coded Allergies: SULFA (SULFONAMIDE ANTIBIOTICS) (Verified Allergy, Unknown, 11/18/17) per family Medications: see eMAR Past Medical History Cardiovascular: Denies: HTN, CAD, SC, valve dz, arrhythmia, other Pulmonary: Reports: other - Respiratory failure, Denies: asthma, COPD, RODRIGO Gastrointestinal/Genitourinary: Reports: GERD, Denies: CRI, ESRD, other Neurologic/Psychiatric: Reports: depression/anxiety, other - bipolar condition , Denies: dementia, CVA, TIA Endocrine: Denies: DM, hypothyroidism, steroids, other HEENT: Denies: cataract (L), cataract (R), glaucoma, [place] (L), [place] (R), other Hematology/Immune: Denies: anemia, DVT, bleeding disorder, other Musculoskeletal/Integumentary: Denies: OA, RA, DJD, DDD, edema, other Other: other PMH Narrative: as above admitted to ICU in respiratory failure following suicidal attempt, scheduled f0r postcardiac organ harvesting PSxH Narrative: see H&P Anesthesia Pre-op Phys. Exam Physician Exam Last Vital Signs Date Time Temp Pulse Resp B/P (MAP) Pulse Ox O2 Delivery O2 Flow Rate FiO2 11/27/17 17:00 128 34 162/97 95 50 11/27/17 16:00 98.7 11/26/17 06:00 Mechanical Ventilator Constitutional: other - comatose unresponsive Neurologic: other - unable to obtaine Cardiovascular: other - tachycardic Respiratory: other - on vent Gastrointestinal: other Airway Exam Mallampati Score: Class III - intubated orally MO: limited Neck: stiff ROM: limited Teeth: missing Dentures: no upper, no lower Anesthesia Pre-op A/P Labs Hematology Test 11/27/17 11:20 11/27/17 16:30 White Blood Count 30.3 K/UL (4.8-10.8) *H 32.6 K/UL (4.8-10.8) *H Red Blood Count 2.46 M/UL (4.70-6.10) L 2.47 M/UL (4.70-6.10) L Hemoglobin 8.0 G/DL (14.2-18.0) L 8.2 G/DL (14.2-18.0) L Hematocrit 25.2 % (42.0-52.0) L 25.4 % (42.0-52.0) L Mean Corpuscular Volume 103 FL (80-99) H 103 FL (80-99) H Mean Corpuscular Hemoglobin 32.7 PG (27.0-31.0) H 33.1 PG (27.0-31.0) H Mean Corpuscular Hemoglobin Concent 31.9 G/DL (32.0-36.0) L 32.3 G/DL (32.0-36.0) Red Cell Distribution Width 14.2 % (11.6-14.8) 14.2 % (11.6-14.8) Platelet Count 162 K/UL (150-450) 162 K/UL (150-450) Mean Platelet Volume 7.1 FL (6.5-10.1) 7.0 FL (6.5-10.1) Neutrophils (%) (Auto) % (45.0-75.0) % (45.0-75.0) Lymphocytes (%) (Auto) % (20.0-45.0) % (20.0-45.0) Monocytes (%) (Auto) % (1.0-10.0) % (1.0-10.0) Eosinophils (%) (Auto) % (0.0-3.0) % (0.0-3.0) Basophils (%) (Auto) % (0.0-2.0) % (0.0-2.0) Differential Total Cells Counted 100 100 Neutrophils % (Manual) 90 % (45-75) H 92 % (45-75) H Lymphocytes % (Manual) 6 % (20-45) L 5 % (20-45) L Monocytes % (Manual) 4 % (1-10) 3 % (1-10) Eosinophils % (Manual) 0 % (0-3) 0 % (0-3) Basophils % (Manual) 0 % (0-2) 0 % (0-2) Band Neutrophils 0 % (0-8) 0 % (0-8) Platelet Estimate Adequate Adequate Platelet Morphology Normal Normal Hypochromasia 1+ 1+ Basophilic Stippling Occasional Anisocytosis 1+ 1+ Macrocytosis 1+ 1+ Coagulation Test 11/27/17 11:20 11/27/17 16:30 Prothrombin Time 13.7 SEC (9.30-11.50) H 14.0 SEC (9.30-11.50) H Prothromb Time International Ratio 1.3 (0.9-1.1) H 1.3 (0.9-1.1) H Activated Partial Thromboplast Time 29 SEC (23-33) 29 SEC (23-33) Chemistry Test 11/27/17 11:20 11/27/17 16:30 Sodium Level 158 MMOL/L (136-145) H 160 MMOL/L (136-145) H Potassium Level 4.6 MMOL/L (3.5-5.1) 4.3 MMOL/L (3.5-5.1) Chloride Level 119 MMOL/L (98-107) H 118 MMOL/L (98-107) H Carbon Dioxide Level 39 MMOL/L (21-32) H 37 MMOL/L (21-32) H Anion Gap 1 mmol/L (5-15) L 5 mmol/L (5-15) Blood Urea Nitrogen 25 mg/dL (7-18) H 24 mg/dL (7-18) H Creatinine 1.0 MG/DL (0.55-1.30) 0.9 MG/DL (0.55-1.30) Estimat Glomerular Filtration Rate > 60 mL/min (>60) > 60 mL/min (>60) Glucose Level 121 MG/DL (74-106) H 126 MG/DL (74-106) H Calcium Level 7.9 MG/DL (8.5-10.1) L 8.1 MG/DL (8.5-10.1) L Phosphorus Level 3.1 MG/DL (2.5-4.9) 3.0 MG/DL (2.5-4.9) Magnesium Level 2.4 MG/DL (1.8-2.4) 2.4 MG/DL (1.8-2.4) Total Bilirubin 0.4 MG/DL (0.2-1.0) 0.4 MG/DL (0.2-1.0) Gamma Glutamyl Transpeptidase 91 U/L (5-85) H 71 U/L (5-85) Aspartate Amino Transf (AST/SGOT) 27 U/L (15-37) 29 U/L (15-37) Alanine Aminotransferase (ALT/SGPT) 36 U/L (12-78) 35 U/L (12-78) Alkaline Phosphatase 85 U/L (46-116) 85 U/L (46-116) Total Protein 5.5 G/DL (6.4-8.2) L 5.9 G/DL (6.4-8.2) L Albumin 1.4 G/DL (3.4-5.0) L 1.4 G/DL (3.4-5.0) L Globulin 4.1 g/dL 4.5 g/dL Albumin/Globulin Ratio 0.3 (1.0-2.7) L 0.3 (1.0-2.7) L Amylase Level 364 U/L (25-115) H 361 U/L (25-115) H Lipase 1951 U/L (73-393) H 1696 U/L (73-393) H Risk Assessment & Plan Assessment: ASA 5 Plan: MAC Status Change Before Surgery: No Pre-Antibiotics Drug: none NAUN MALIK M.D. Nov 28, 2017 07:40
--- NOTE | 2017-11-28 17:27 | Cardiology Report ---
APPROVED REPORT EKG Measurement Heart [id number] TN [id number] Sinus tachycardia Otherwise normal ECG
--- NOTE | 2017-11-29 18:39 | Discharge Summary ---
Discharge Summary Hospital Course Date of Admission Nov 17, 2017 at 22:22 Date of Discharge Nov 27, 2017 at 19:30 Admitting Diagnosis ALTERED MENTAL STATUS/OVERDOSE KALLI Morales is a 32 year old male who was admitted on Nov 17, 2017 at 22:22 for Altered Mental Status,Overdose Hospital Course [id number] Discharge Discharge Disposition Patient Discharge Diagnoses: Marilynn Hall NP Nov 29, 2017 18:39
--- NOTE | 2017-11-30 03:15 | Discharge Summary 2 SIG ---
DATE OF ADMISSION: 11/17/2017 DATE OF DISCHARGE: 11/27/2017 BRIEF SUMMARY: The patient is a 32-year-old white male with history of bipolar disorder recently hospitalized in a psychiatric facility, was taken to [facility] as he was found on the ground by his mother and roommate apparently with two empty bottles of Seroquel next to him. He was given 2 mg of Narcan at the field with no improvement. On arrival to ED, GCS was 3, he had dilated pupils, and was hypotensive. He was orally intubated. CT scan of the brain was negative. EKG was in sinus tachycardia. Blood work showed leukocytosis. WBC was 17. Lactic acid was 11. Creatinine was 2.4. He was then admitted to intensive care unit. Following admission, he developed generalized tonic-clonic seizure, which were recurrent. He was loaded with Dilantin, Ativan, and Keppra. Toxicology screen was positive for benzodiazepine. He had an EEG that showed severe global cerebral dysfunction. Kidney function was elevated. The patient has acute renal failure secondary to rhabdomyolysis. He had leukocytosis and was initially given Zosyn and Flagyl for possible aspiration pneumonia. The patient had poor prognosis and per family request, second neurological opinion was obtained. The patient has severe anoxic ischemic cerebral injury and prognosis for recovery is poor. A bioethics meeting was held. Family agreed with the patient's advanced directives and recognized that further aggressive medical care is futile. Medical care was refocused on comfort measures with organ body donation. Dr. Haile was called to assist with line placement at end of life care prior to procurement. Right radial arterial line was inserted. The patient was then transported to ICU and was terminally extubated as planned. The patient eventually . FINAL DIAGNOSES: 1. Acute anoxic encephalopathy. 2. Aspiration pneumonia. 3. Staphylococcus in sputum. 4. Acute respiratory failure. 5. Acute renal failure. 6. Bipolar disorder. 7. Status epilepticus. 8. Staphylococcus pneumonia. 9. Lactic acidosis. 10. Rhabdomyolysis. 11. Terminal extubation/comfort care/palliative care. Leonardo Flor M.D. I have been assigned to dictate discharge summary on this account and I was not involved in the patient's management. Marilynn Hall N.P. DR: KENNETH JOB#: [id number] CC: AME
== END 2017-11-27 19:30 | disposition expired | DRG 917 ==
LOC: EDBD 21:32 → EMR 22:00 → ICU 22:22 → EDBD 22:22 → EDBEDREQ 22:39
PROC: 5A1955Z Respiratory Ventilation, Greater than 96 Consecutive Hours (ICD-10-PCS; principal; 2017-11-17)
PROC: 0BH17EZ Insertion of Endotracheal Airway into Trachea, Via Natural or Artificial Opening (ICD-10-PCS; principal; 2017-11-17)
PROC: 06HM33Z Insertion of Infusion Device into Right Femoral Vein, Percutaneous Approach (ICD-10-PCS; 2017-11-27)
DX: T43.592A Poisoning by other antipsychotics and neuroleptics, intentional self-harm, initial encounter (principal); J96.02 Acute respiratory failure with hypercapnia; R40.2123 Coma scale, eyes open, to pain, at hospital admission; I63.9 Cerebral infarction, unspecified; J69.0 Pneumonitis due to inhalation of food and vomit; R40.2213 Coma scale, best verbal response, none, at hospital admission; G93.1 Anoxic brain damage, not elsewhere classified; E87.2 Acidosis; I95.9 Hypotension, unspecified; R40.2313 Coma scale, best motor response, none, at hospital admission; J15.211 Pneumonia due to Methicillin susceptible Staphylococcus aureus; M62.82 Rhabdomyolysis; E44.1 Mild protein-calorie malnutrition; N17.9 Acute kidney failure, unspecified; Z99.11 Dependence on respirator [ventilator] status; T42.4X2A Poisoning by benzodiazepines, intentional self-harm, initial encounter; Y92.009 Unspecified place in unspecified non-institutional (private) residence as the place of occurrence of the external cause; F10.20 Alcohol dependence, uncomplicated; Z68.31 Body mass index [BMI] 31.0-31.9, adult; D72.829 Elevated white blood cell count, unspecified; R00.0 Tachycardia, unspecified; G40.901 Epilepsy, unspecified, not intractable, with status epilepticus; F31.9 Bipolar disorder, unspecified; R19.7 Diarrhea, unspecified; Z51.5 Encounter for palliative care
CPT/HCPCS: 36415; 36600; 70450; 71045; 74018; 76700; 80048; 80053; 80076; 80307; 80329; 81001; 81003; 82140; 82150; 82550; 82553; 82607; 82746; 82803; 82977; 83605; 83690; 83735; 83880; 84100; 84443; 84484; 84550; 85007; 85025; 85610; 85730; 86850; 86900; 86901; 87040; 87070; 87081; 87086; 87181; 87205; 87324; 93005; 94002; 94003; 94150; 95819; 99291; J1165; J8499

== ENCOUNTER 2017-11-27 18:00 | Inpatient (IN) | payer OTHER ==
[~2017-11-27] VITALS: Ht 175.3 cm; Wt 95.3 kg
[~2017-11-27 18:00] MED LIST changes: +LEXAPRO10 MG ORAL
[2017-11-27] MEDS ORDERED: NS Irrig 2000ml IRRIG ONE (19:58)
[2017-11-27] MEDS ORDERED: NS Irrig 1000ml IRRIG ONE (19:58)
== END 2017-11-27 19:30 | disposition expired | DRG 951 ==
LOC: ICU 18:00
DX: Z52.9 Donor of unspecified organ or tissue (principal)
CPT/HCPCS: 94003; 94150